=== PATIENT | female | born 1930 | race Caucasian/White ===

== ENCOUNTER 2016-08-26 11:21 | Observation (INO) | payer MEDICARE ==
[2016-08-26 11:29] VITALS: BMI 21.5
--- NOTE | 2016-08-26 12:25 | ED PDOC ---
HPI: General Adult Time Seen by Provider: 08/26/16 11:28 Chief Complaint (Nursing): Weakness/Neurological Deficit Chief Complaint (Provider): left leg pain History Per: Patient History/Exam Limitations: no limitations Additional Complaint(s): 86yo female complaining of left lower leg pain and swelling for 3 days. She goes to physical therapy where she went and was referred here. Dr. Vargas also recommended she comes here. 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 Now it is red and swollen. No anticoagulant use. Her second complaint occurred this morning after she planned to come here. She has numbness in the left hand and numbness in the mouth. No headache, dizziness , weakness, facial droop, speech changes. This is since waking up this morning. No chest pain. PMD: Sam NIHSS Stroke Scale - Date/Time Evaluation Performed Date Performed: 08/26/16 Time Performed: 11:35 When Was NIHSS Performed: Code Stroke - How Severe is the Stroke Level of Consciousness: 0=Alert LOC to Questions: 0=Both comments correct LOC to commands: 0=Obeys both correctly Best Gaze: 0=Normal Visual: 0=No visual loss Facial: 0=Normal Motor Arm - Left: 0=No drift Motor Arm - Right: 0=No drift Motor Leg - Left: 0=No drift Motor Leg - Right: 0=No drift Limb Ataxia: 0=Absent Sensory: 0=Normal Best Language: 0=No aphasia Dysarthia: 0=Normal articulation Extinction & Inattention (Neglect): 0=Normal, no object Score: 0 rTPA Inclusion/Exclusion - Refusal of Treatment Patient Refused Treatment: No - Inclusion Criteria for Altepase Patient is 18 years or Older: Yes The Clinical Diagnosis of Ischemic Stroke That is Causing a Potentially Disabling Neurological Deficit: No Time of Onset is Well Established to be Less Than 270 Minute Before Treatment Would Begin: No Risk/Benefit Discussed With Patient/Family Member Present: No - Warning to TPA With Conditions Condition: Stroke Serevity Too Mild (NIH Score = 0), Care Team Unable to Determine Eligibilty (outside of window) Additional Condition (For 3-4.5 Hour Window): Age Greater Than 80 Past Medical History Reviewed: Historical Data, Nursing Documentation, Vital Signs Vital Signs: Last Vital Signs Temp 97.4 F L 08/27/16 04:48 Pulse 70 08/27/16 04:48 Resp 20 08/27/16 04:48 BP 122/65 08/27/16 04:48 Pulse Ox 97 08/27/16 07:22 - Medical History PMH: Anemia (B12 deficiency), CVA, Diabetes, Deep Vein Thrombosis, Fractures (R hip), HTN, Seizures, TIA (x28) Denies: HIV, Chronic Kidney Disease Other PMH: diabetic neuropathy in legs - Surgical History Surgical History: No Surg Hx - Family History Family History: States: Hypertension - Immunization History Hx Influenza Vaccination: No Hx Pneumococcal Vaccination: No - Home Medications Home Medications: Ambulatory Orders Medication Instructions Recorded Aspirin [Aspirin EC] 325 mg PO DAILY 08/26/16 Cholecalciferol [Vitamin D 1000 IU] 1,000 unit PO DAILY 08/26/16 Furosemide [Lasix] 40 mg PO MWF 08/26/16 Glucosamine/MSM/Chondroitin A 2 cap PO DAILY 08/26/16 [Glucosamine Chondroit MSM Tab] Lactobacillus Combination No.8 1 cap PO DAILY 08/26/16 [Adult Probiotic] Losartan [Cozaar] 25 mg PO DAILY 08/26/16 Timolol 0.5% Ophth [Timoptic 0.5% 1 drop EACHEYE QAM 08/26/16 Ophth Soln] - Allergies Allergies/Adverse Reactions: Allergies Allergy/AdvReac Type Severity Reaction Status Date / Time amlodipine besylate Allergy SWELLING Verified 08/26/16 11:35 [From Norvasc] ciprofloxacin [From Cipro] Allergy RASH Verified 08/26/16 11:35 ciprofloxacin HCl Allergy RASH Verified 08/26/16 11:35 [From Cipro] codeine Allergy RASH Verified 08/26/16 11:35 lisinopril Allergy RASH Verified 08/26/16 11:35 metoprolol tartrate Allergy SWELLING Verified 08/26/16 11:35 [From Lopressor] metronidazole [From Flagyl] Allergy RASH Verified 08/26/16 11:35 Penicillins Allergy RASH Verified 08/26/16 11:35 tetanus toxoid, adsorbed Allergy RASH Verified 08/26/16 11:35 Review of Systems ROS Statement: Except As Marked, All Systems Reviewed And Found Negative Cardiovascular: Negative for: Chest Pain Musculoskeletal: Positive for: Leg Pain Neurological: Negative for: Weakness, Change in Speech, Headache, Dizziness, Other (facial droop) Physical Exam - Reviewed Nursing Documentation Reviewed: Yes Vital Signs Reviewed: Yes - Physical Exam Appears: Positive for: Well, Non-toxic, No Acute Distress Head Exam: Positive for: ATRAUMATIC, NORMAL INSPECTION, NORMOCEPHALIC Skin: Positive for: Warm, Dry Eye Exam: Positive for: EOMI, PERRL Cardiovascular/Chest: Positive for: Regular Rate, Rhythm Respiratory: Positive for: Normal Breath Sounds. Negative for: Rales, Rhonchi, Wheezing Gastrointestinal/Abdominal: Positive for: Soft. Negative for: Tenderness Extremity: Positive for: Other (Mild edema bilaterally more on left than right, also with erythema to anterior murguia on left. mild calf tenderness on left. ) Neurologic/Psych: Positive for: Alert, Oriented (x3). Negative for: Motor/ Sensory Deficits - Laboratory Results Result Diagrams: 08/27/16 04:30 08/27/16 04:30 - ECG O2 Sat by Pulse Oximetry: 97 (RA) Pulse Ox Interpretation: Normal Medical Decision Making Medical Decision Makin tPA exclusion due to extended onset of symptoms and no deficits noted during exam. Impression: leg pain; numbness Differential includes DVT, TIA, CVA Plan: CT Head w/o EKG Labs US Left lower extremity reassess 1435 US Left lower extremity No evidence of DVT seen in visualized veins of left lower extremity CT Head w/o Impression: moderate nonspecific white matter changes. generalized atrophy [address] Mills covering for Dr. Harper who recommends admission for TIA workup with MRI. Disposition - Clinical Impression Clinical Impression: Numbness and tingling in left hand, Left leg pain - Patient ED Disposition Is Patient to be Admitted: Yes Discussed With : Jamie Riojas Doctor Will See Patient In The: ED Counseled Patient/Family Regarding: Studies Performed, Diagnosis - Disposition Disposition Time: 15:40 Condition: FAIR - Pt Status Changed To: Hospital Disposition Of: Observation - POA Present On Arrival: None Additional Comments - Additional Comments Additional Comments: Scribe Attestation: Documented by Faheem Gao acting as a scribe for Marsha Jack MD. Provider Scribe Attestation: All medical record entries made by the Scribe were at my direction and personally dictated by me. I have reviewed the chart and agree that the record accurately reflects my personal performance of the history, physical exam, medical decision making, and the department course for this patient. I have also personally directed, reviewed, and agree with the discharge instructions and disposition.
--- NOTE | 2016-08-26 12:37 | CT ---
PROCEDURE: CT HEAD WITHOUT CONTRAST. HISTORY: left hand numbness COMPARISON: Noncontrast head CT performed 11/29/15 TECHNIQUE: Axial computed tomography images were obtained through the head/brain without intravenous contrast. Radiation dose: Total exam DLP = 758.43 mGy-cm. This CT exam was performed using one or more of the following dose reduction techniques: Automated exposure control, adjustment of the mA and/or kV according to patient size, and/or use of iterative reconstruction technique. FINDINGS: HEMORRHAGE: No intracranial hemorrhage. BRAIN: Diffuse atrophy with prominence of the ventricles and sulci noted. No mass effect or edema. Intracranial atherosclerotic calcifications. Scattered periventricular and subcortical white matter hypodensities, which are nonspecific, but often seen with chronic microvascular ischemic disease. Please note that MRI with diffusion imaging is more sensitive in the detection of acute ischemic event. VENTRICLES: No hydrocephalus. CALVARIUM: Unremarkable. PARANASAL SINUSES: Unremarkable as visualized. No significant inflammatory changes. MASTOID AIR CELLS: Unremarkable as visualized. No inflammatory changes. OTHER FINDINGS: None. IMPRESSION: Moderate nonspecific white matter changes. Generalized atrophy.
--- NOTE | 2016-08-26 13:36 | US ---
Left lower extremity venous Doppler 08/26/2016. History: Left leg pain and swelling. Duplex interrogation of the deep veins left lower extremity performed. Correlation made with prior bilateral venous Doppler 12/17/2014. Findings: The visualized deep veins of the left lower extremity exhibit normal flow, compressibility augmentation without evidence of DVT. Visualized right common femoral vein is also patent Impression: No evidence of DVT seen within the visualized deep veins left lower extremity.
[2016-08-26 13:38] LABS: BASO # 0.1 K/uL (0.0-0.2); BASO % 1.3 % (0.0-2.0); BLOOD UREA NITROGEN 16 mg/dl (7-17); CARBON DIOXIDE 27 mmol/L (22-30); CHLORIDE 104 mmol/L (98-107); EOS # 0.1 K/uL (0.0-0.7); EOS % 2.1 % (0.0-4.0); GFR AFRICAN-AMERICAN > 60; GLUCOSE,RANDOM 84 mg/dL (65-105); HEMATOCRIT 41.4 % (34.0-47.0); LYMPH # 1.7 K/uL (1.0-4.3); LYMPH % 31.2 % (20.0-40.0); MEAN CELL VOLUME 91.8 fl (81.0-99.0); MEAN CORPUSCULAR HEMOGLOBIN 30.6 pg (27.0-31.0); MEAN CORPUSCULAR HGB CONC 33.3 g/dL (33.0-37.0); MEAN PLATELET VOLUME 8.8 fl (7.2-11.7); MONO # 0.5 K/uL (0.0-0.8); MONO % 9.4 % (0.0-10.0); NEUT # 3.1 K/uL (1.8-7.0); NRBC % 0.1 % (0.0-0.0); POTASSIUM 4.4 MMOL/L (3.6-5.0); RED CELL DISTRIBUTION WIDTH 14.1 % (11.5-14.5); SODIUM 139 mmol/l (132-148); WHITE BLOOD COUNT 5.5 K/uL (4.8-10.8)
--- NOTE | 2016-08-26 17:51 | CP.PCM.HP ---
History of Present Illness - History of Present Illness History of Present Illness: 86 yo female with history of multiple TIA/CVAs, DVT, HTN and Rheumatic Fever was referred here [facility] because of pain and swelling of the left leg since 3 days ago. However upon interview patient also mentioned having numbness of the left side of the face and left upper and lower limbs since this morning. She was sent for venous doppler which turned out negative for DVT. When she came from ultrasound she reported spontaneous relief of the numbness on the left side. Her left leg which she claimed was swollen and hard was now with normal consistency and no longer painful. With her history of frequent TIAs , her PCP, Dr Vargas, advised that she be placed on observation. Present on Admission - Present on Admission Any Indicators Present on Admission: Yes History of DVT/PE: Yes History of Uncontrolled Diabetes: No Urinary Catheter: No Decubitus Ulcer Present: No Review of Systems - Review of Systems All systems: reviewed and no additional remarkable complaints except (aside from those mentioned above, 12 point system review were negative by me) Past Patient History - Past Medical History & Family History Past Medical History?: Yes - Past Social History Smoking Status: Never Smoked Chewing Tobacco Use: No Cigar Use: No Alcohol: < 2 Drinks/Day (drinks a glass of wine with dinner) Home Situation {Lives}: Alone - CARDIAC Hx Cardiac Disorders: Yes Hx Heart Murmur: Yes Hx Hypertension: Yes Other/Comment: history of Rheumatic Fever - PULMONARY Hx Respiratory Disorders: No - NEUROLOGICAL Hx Neurological Disorder: Yes HX Cerebrovascular Accident: Yes Hx Transient Ischemic Attacks (TIA): Yes (28 times) - HEENT Hx HEENT Problems: No - RENAL Hx Chronic Kidney Disease: No - ENDOCRINE/METABOLIC Hx Endocrine Disorders: No Other/Comment: Hypoparathyroid - HEMATOLOGICAL/ONCOLOGICAL Hx Human Immunodeficiency Virus (HIV): No - INTEGUMENTARY Hx Dermatological Problems: No - MUSCULOSKELETAL/RHEUMATOLOGICAL Hx Fractures: Yes (right hip fracture, 1988) - GASTROINTESTINAL Hx Gastrointestinal Disorders: No - GENITOURINARY/GYNECOLOGICAL Hx Genitourinary Disorders: No - PSYCHIATRIC Hx Psychophysiologic Disorder: No Hx Substance Use: No - SURGICAL HISTORY Hx Orthopedic Surgery: Yes (RT HIP REPLACEMENT, 1988) - ANESTHESIA Hx Anesthesia: Yes Hx Anesthesia Reactions: No Hx Malignant Hyperthermia: No Meds Allergies/Adverse Reactions: Allergies Allergy/AdvReac Type Severity Reaction Status Date / Time amlodipine besylate Allergy SWELLING Verified 05/08/17 11:35 [From Norvasc] ciprofloxacin [From Cipro] Allergy RASH Verified 08/26/16 11:35 ciprofloxacin HCl Allergy RASH Verified 08/26/16 11:35 [From Cipro] codeine Allergy RASH Verified 08/26/16 11:35 lisinopril Allergy RASH Verified 08/26/16 11:35 metoprolol tartrate Allergy SWELLING Verified 08/26/16 11:35 [From Lopressor] metronidazole [From Flagyl] Allergy RASH Verified 08/26/16 11:35 Penicillins Allergy RASH Verified 08/26/16 11:35 tetanus toxoid, adsorbed Allergy RASH Verified 08/26/16 11:35 Physical Exam - Constitutional Appears: No Acute Distress - Head Exam Head Exam: ATRAUMATIC - Eye Exam Eye Exam: absent: Scleral icterus - ENT Exam ENT Exam: Mucous Membranes Moist - Neck Exam Neck exam: Negative for: Meningismus - Respiratory Exam Respiratory Exam: absent: Rhonchi, Wheezes, Respiratory Distress - Cardiovascular Exam Cardiovascular Exam: REGULAR RHYTHM, +S1, +S2 - GI/Abdominal Exam GI & Abdominal Exam: Soft. absent: Tenderness - Rectal Exam Rectal Exam: Deferred - Extremities Exam Extremities exam: Positive for: pedal pulses present. Negative for: calf tenderness, pedal edema - Back Exam Back exam: absent: tenderness - Neurological Exam Neurological exam: Alert, Oriented x3 - Psychiatric Exam Psychiatric exam: Normal Affect - Skin Skin Exam: Dry, Intact Results - Vital Signs Recent Vital Signs: Last Vital Signs Temp 98.9 F 08/26/16 16:59 Pulse 71 08/26/16 16:59 Resp 18 08/26/16 16:59 BP 156/69 H 08/26/16 16:59 Pulse Ox 99 08/26/16 16:12 - Labs Result Diagrams: 08/26/16 13:00 08/26/16 13:00 Assessment & Plan (1) TIA (transient ischemic attack) Status: Suspected Comment: place on observation in telemetry. ASA 81mg PO daily. Lipid profile. ECHO. MRI of brain. consult with Dr Harper (2) Hypertension Status: Acute Comment: BP slightly elevated. Lasix 40mg PO MWF. Losartan 25mg PO daily. monitor BP (3) DVT prophylaxis Status: Acute Comment: Lovenox 40mg SC daily
--- NOTE | 2016-08-26 21:39 | MRI ---
EXAM: MR Head Without Intravenous Contrast CLINICAL HISTORY: 86 years old, female; Signs and symptoms; Weakness, extremity; Left; Patient HX: Pat C/O of left lower leg pain, her leg is red and swollen, no anticoagulant use; Additional info: Numbness TECHNIQUE: Magnetic resonance images of the head/brain without intravenous contrast in multiple planes. COMPARISON: CT - HEAD W/O CONTRAST 08/26/2016 12:00:45 PM FINDINGS: Brain: Mild atrophy. No intracranial hemorrhage. No mass. Extensive patchy high T2 signal within periventricular and subcortical white matter. No abnormal restricted diffusion. Ventricles: No hydrocephalus. Bones/joints: No acute fracture. Sinuses: No acute sinusitis. Mastoid air cells: No mastoid effusion. Orbits: Unremarkable as visualized. IMPRESSION: 1. No MRI evidence of acute infarction. 2. Chronic ischemic white matter changes. 3. Incidental/non-acute findings are described above.
--- NOTE | 2016-08-26 21:43 | MRI ---
EXAM: MR Angiography Head Without Intravenous Contrast CLINICAL HISTORY: 86 years old, female; Signs and symptoms; Weakness; Patient HX: Left leg weakness; Additional info: Numbness TECHNIQUE: Magnetic resonance angiography images of the head without intravenous contrast. COMPARISON: CT - HEAD W/O CONTRAST 08/26/2016 12:00:45 PM FINDINGS: Right internal carotid artery: Intracranial segment is patent with no significant stenosis. No aneurysm. Right anterior cerebral artery: Narrowing of A1 segment. No occlusion. No aneurysm. Right middle cerebral artery: No occlusion or significant stenosis. No aneurysm. Right posterior cerebral artery: [employer]. No occlusion or significant stenosis. No aneurysm. Right vertebral artery: Unremarkable as visualized. Left internal carotid artery: Intracranial segment is patent with no significant stenosis. No aneurysm. Left anterior cerebral artery: No occlusion or significant stenosis. No aneurysm. Left middle cerebral artery: No occlusion or significant stenosis. No aneurysm. Left posterior cerebral artery: No occlusion or significant stenosis. No aneurysm. Left vertebral artery: Unremarkable as visualized. Basilar artery: Unremarkable. No occlusion or significant stenosis. No aneurysm. IMPRESSION: Patent vasculature.
[2016-08-27 00:22] VITALS: RESP 20
[2016-08-27 05:10] LABS: BASO # 0.1 K/uL (0.0-0.2); EOS # 0.2 K/uL (0.0-0.7); EOS % 4.5 % (0.0-4.0); HEMATOCRIT 40.6 % (34.0-47.0); LYMPH # 1.5 K/uL (1.0-4.3); LYMPH % 33.4 % (20.0-40.0); MEAN CELL VOLUME 91.6 fl (81.0-99.0); MEAN CORPUSCULAR HEMOGLOBIN 30.1 pg (27.0-31.0); MEAN CORPUSCULAR HGB CONC 32.8 g/dL (33.0-37.0); MEAN PLATELET VOLUME 8.7 fl (7.2-11.7); MONO # 0.5 K/uL (0.0-0.8); MONO % 11.8 % (0.0-10.0); NEUT # 2.2 K/uL (1.8-7.0); NEUT % 48.3 % (50.0-75.0); NRBC % 0.1 % (0.0-0.0); RED CELL DISTRIBUTION WIDTH 13.9 % (11.5-14.5); WHITE BLOOD COUNT 4.5 K/uL (4.8-10.8)
[2016-08-27 05:15] LABS: BLOOD UREA NITROGEN 17 mg/dl (7-17); CALCIUM 9.8 mg/dL (8.4-10.2); CARBON DIOXIDE 28 mmol/L (22-30); CHLORIDE 106 mmol/L (98-107); CHOLESTEROL 189 mg/dL (0-199); GFR AFRICAN-AMERICAN > 60; GLUCOSE,RANDOM 95 mg/dL (65-105); POTASSIUM 4.4 MMOL/L (3.6-5.0); SODIUM 140 mmol/l (132-148)
[2016-08-27 05:46] LABS: THYROID STIMULATING HORMONE 1.54 mIU/ML (0.46-4.68)
[2016-08-27 07:07] LABS: RBC URINE 2 /hpf (0-3); URINE BILIRUBIN NEGATIVE (NEGATIVE); URINE BLOOD MODERATE (NEGATIVE); URINE COLOR YELLOW (YELLOW); URINE GLUCOSE (UA) NEG (Normal); URINE KETONE NEGATIVE (NEGATIVE); URINE LEUKOCYTE ESTERASE NEG Leu/uL (Negative); URINE PROTEIN NEGATIVE (NEGATIVE); URINE UROBILINOGEN 0.2-1.0 mg/dL (0.2-1.0); WBC URINE 2 /hpf (0-5)
[2016-08-27 07:22] VITALS: O2SAT 97
[2016-08-27] MEDS ORDERED: Aspirin 325 mg EC Tablets PO SCH (09:00)
[2016-08-27] MEDS ORDERED: Enoxaparin 40 mg Syringe SC SCH (09:00)
[2016-08-27 10:26] LABS: CHOLESTEROL 215 mg/dL (0-199)
[2016-08-27 10:39] LABS: PARTIAL THROMBOPLASTIN TIME 30.7 SECONDS (23.3-32.5)
--- NOTE | 2016-08-27 11:00 | CARD ---
APPROVED REPORT EKG Measurement Heart [id number] <Conclusion> Normal sinus rhythm with sinus arrhythmia Normal ECG
[2016-08-27 11:55] VITALS: BP 146/87; PULSE 83; TEMP 98
--- NOTE | 2016-08-27 12:08 | CARD ---
APPROVED REPORT EXAM: Two-dimensional and M-mode echocardiogram with Doppler and color Doppler. Other Information Quality : AverageRhythm : NSR INDICATION CVA/TIA 2D DIMENSIONS IVSd1.31 (0.7-1.1cm)LVDd3.87 (3.9-5.9cm) LVOT Diameter2.04 (1.8-2.4cm)PWd1.26 (0.7-1.1cm) IVSs1.32 (0.8-1.2cm)LVDs3.57 (2.5-4.0cm) FS (%) 7.7 %PWs1.12 (0.8-1.2cm) M-Mode DIMENSIONS Left Atrium (MM)4.44 (2.5-4.0cm)IVSd0.97 (0.7-1.1cm) Aortic Root3.31 (2.2-3.7cm)LVDd4.44 (4.0-5.6cm) Aortic Cusp Exc.1.22 (1.5-2.0cm)PWd1.13 (0.7-1.1cm) IVSs1.38 cmFS (%) 35 % LVDs2.91 (2.0-3.8cm)PWs1.25 cm Mitral Valve E/A ratio0.0 TDI E/Lateral E'0.0E/Medial E'0.0 Tricuspid Valve TR Peak [id number] [id number] Peak Gr.16mmHg [id number] LEFT VENTRICLE The left ventricle is normal size. There is normal left ventricular wall thickness. The left ventricular function is normal. The left ventricular ejection fraction is - 60%. There is normal LV segmental wall motion. Transmitral Doppler flow pattern is abnormal. No left ventricle thrombus noted on this study. There is no ventricular septal defect visualized. There is no left ventricular aneurysm. There is no mass noted in the left ventricle. RIGHT VENTRICLE The right ventricle is normal size. There is normal right ventricular wall thickness. The right ventricular systolic function is normal. ATRIA The left atrium is mildly dilated. There is no thrombus suspected in the left atrium. The right atrium is mildly dilated. The interatrial septum is intact with no evidence for an atrial septal defect. AORTIC VALVE The aortic valve is mildly thickened. No aortic regurgitation is present. There is no aortic valvular stenosis. MITRAL VALVE The mitral valve is normal in structure and function. There is no evidence of mitral valve prolapse. There is no mitral valve stenosis. Mitral regurgitation is mild. TRICUSPID VALVE The tricuspid valve is normal in structure and function. There is mild tricuspid regurgitation. Right ventricular systolic pressure is estimated at 24 mmHg. There is no tricuspid valve prolapse or vegetation. There is no tricuspid valve stenosis. PULMONIC VALVE The pulmonic valve is not well visualized. There is no pulmonic valvular regurgitation. GREAT VESSELS The aortic root is normal in size. The IVC is normal in size and collapses >50% with inspiration. PERICARDIAL EFFUSION There is a small anterior echo free space. There is no pleural effusion. <Conclusion> The left ventricle is normal in size and wall thickness. The left ventricular function is normal. The left ventricular ejection fraction is - 60%. The left atrium and right atrium are mildly enlarged. The aortic valve is mildly thickened but not stenotic. The mitral and tricuspid valves are normal. There is mild mitral regurgitation and mild tricuspid regurgitation.
--- NOTE | 2016-08-27 13:32 | CP.PCM.CON ---
History of Present Illness - History of Present Illness History of Present Illness: The patient is an 86-year-old woman with a past medical history of multiple TIA/ CVAs, DVT, HTN and Rheumatic Fever who was initially referred referred here from [facility] because of pain and swelling of the left leg for the last 3 days. The patient subsequently complained of having intermittent numbness of the left hand and arm below the elbow. She describes it as a cold sensation that sometimes also involves regions surrounding her mouth and also affects the right hand at times. After further discussion with the patient, she also complained that her feet feel numb and that she had felt that the numbness affects her ambulation. She has had this for several months and it is intermittent, sometimes is bothersome. She denied headache, visual changes, nausea, vomiting, weakness or other sensory deficits. Review of Systems - Review of Systems All systems: reviewed and no additional remarkable complaints except Past Patient History - Past Medical History & Family History Past Medical History?: Yes - Past Social History Smoking Status: Former Smoker Chewing Tobacco Use: No Alcohol: Occasional - CARDIAC Hx Hypertension: Yes - PULMONARY Hx Respiratory Disorders: No - NEUROLOGICAL Hx Seizures: Yes Hx Transient Ischemic Attacks (TIA): Yes (x28) - HEENT Hx HEENT Problems: No - RENAL Hx Chronic Kidney Disease: No - ENDOCRINE/METABOLIC Hx Endocrine Disorders: No Other/Comment: Hypoparathyroid - HEMATOLOGICAL/ONCOLOGICAL Hx Anemia: Yes (B12 deficiency) Hx Human Immunodeficiency Virus (HIV): No - INTEGUMENTARY Hx Dermatological Problems: No - MUSCULOSKELETAL/RHEUMATOLOGICAL Hx Fractures: Yes (R hip) - GASTROINTESTINAL Hx Gastrointestinal Disorders: No - GENITOURINARY/GYNECOLOGICAL Hx Genitourinary Disorders: No - PSYCHIATRIC Hx Substance Use: No - SURGICAL HISTORY Hx Orthopedic Surgery: Yes (RT HIP REPLACEMENT, 1988) Other/Comment: LEFT BREAST BIOPSY WITH CLIP 12 YEARS AGO - ANESTHESIA Hx Anesthesia: Yes Hx Anesthesia Reactions: No Hx Malignant Hyperthermia: No Meds Allergies/Adverse Reactions: Allergies Allergy/AdvReac Type Severity Reaction Status Date / Time amlodipine besylate Allergy SWELLING Verified 08/26/16 11:35 [From Norvasc] ciprofloxacin [From Cipro] Allergy RASH Verified 08/26/16 11:35 ciprofloxacin HCl Allergy RASH Verified 08/26/16 11:35 [From Cipro] codeine Allergy RASH Verified 08/26/16 11:35 lisinopril Allergy RASH Verified 08/26/16 11:35 metoprolol tartrate Allergy SWELLING Verified 08/26/16 11:35 [From Lopressor] metronidazole [From Flagyl] Allergy RASH Verified 08/26/16 11:35 Penicillins Allergy RASH Verified 08/26/16 11:35 tetanus toxoid, adsorbed Allergy RASH Verified 08/26/16 11:35 - Medications Medications: Current Medications Acetaminophen (Tylenol 325mg Tab) 650 mg PO Q6 PRN PRN Reason: Pain, Mild (1-3) Aspirin (Ecotrin) 325 mg PO DAILY [facility] Last Admin: 08/27/16 08:42 Dose: 325 mg Atorvastatin Calcium (Lipitor) 20 mg PO DAILY [facility] Cholecalciferol (Vitamin D) 1,000 iu PO DAILY [facility] Last Admin: 08/27/16 08:45 Dose: 1,000 iu Docusate Sodium (Colace) 100 mg PO BID PRN PRN Reason: Constipation Last Admin: 08/27/16 08:41 Dose: 100 mg Enoxaparin Sodium (Lovenox) 40 mg SC DAILY [facility] PRN Reason: Protocol Last Admin: 08/27/16 08:43 Dose: 40 mg Famotidine (Pepcid) 20 mg PO BID [facility] Last Admin: 08/27/16 08:43 Dose: 20 mg Furosemide (Lasix) 40 mg PO MWF [facility] Losartan Potassium (Cozaar) 25 mg PO DAILY [facility] Last Admin: 08/27/16 08:41 Dose: 25 mg Timolol Maleate (Timoptic 0.5% Oph Soln) 1 drop OU QAM [facility] Last Admin: 08/27/16 08:44 Dose: 1 drop Physical Exam - Constitutional Appears: Well - Head Exam Head Exam: ATRAUMATIC, NORMAL INSPECTION, NORMOCEPHALIC - Eye Exam Eye Exam: EOMI, Normal appearance, PERRL - ENT Exam ENT Exam: Mucous Membranes Moist, Normal Exam - Neck Exam Neck exam: Positive for: Normal Inspection - Respiratory Exam Respiratory Exam: Clear to Auscultation Bilateral, NORMAL BREATHING PATTERN - Cardiovascular Exam Cardiovascular Exam: REGULAR RHYTHM, +S1, +S2 - GI/Abdominal Exam GI & Abdominal Exam: Normal Bowel Sounds, Soft. absent: Tenderness - Neurological Exam Neurological exam: Alert, CN II-XII Intact, Normal Gait, Oriented x3, Reflexes Normal - Expanded Neurological Exam Expanded Patient oriented to: person, place, time Cranial nerves: EOM's Intact: Normal, Facial Sensation: Normal, Gag Reflex: Normal, Nystagmus: Normal Ataxia: No Cerebellar Function: Finger to Nose: Normal, Heel to Covarrubias: Normal, Romberg: Normal Upper motor neuron: Babinski Sign: Normal, Zheng Neglect: Normal, Pronator Drift : Normal, Sensory Extinction: Normal Sensory exam: Lower Extremity 2 Point Discrimination: Normal, Lower Extremity Light Touch: Normal, Lower Extremity Pin Prick: Normal, Lower Extremity Temperature: Normal, Upper Extremity 2 Point Discrimination: Normal, Upper Extremity Light Touch: Normal, Upper Extremity Pin Prick: Normal, Upper Extremity Temperature: Normal Neuro motor strength exam: Left Upper Extremity: 5, Right Upper Extremity: 5, Left Lower Extremity: 5, Right Lower Extremity: 5 DTR: Achilles Tendon Left: 2+, Achilles Tendon Right: 2+, Bicep Left: 2+, Bicep Right: 2+, Brachioradialis Left: 2+, Brachioradialis Right: 2+, Patellar Left: 2 +, Patellar Right: 2+, Tricep Left: 2+, Tricep Right: 2+ - Psychiatric Exam Psychiatric exam: Normal Affect, Normal Mood - Skin Skin Exam: Dry, Intact, Normal Color, Warm Results - Vital Signs Recent Vital Signs: Last Vital Signs Temp 98 F 08/27/16 09:00 Pulse 83 08/27/16 09:00 Resp 20 08/27/16 09:00 BP 146/87 08/27/16 09:00 Pulse Ox 97 08/27/16 07:23 - Labs Result Diagrams: 08/27/16 04:30 08/27/16 04:30 Labs: Laboratory Results - last 24 hr 08/27/16 08/27/16 08/27/16 04:30 04:30 06:49 WBC 4.5 L RBC 4.43 Hgb 13.3 Hct 40.6 MCV 91.6 MCH 30.1 MCHC 32.8 L RDW 13.9 Plt Count 231 MPV 8.7 Neut % (Auto) 48.3 L Lymph % (Auto) 33.4 [place] % (Auto) 11.8 H Eos % (Auto) 4.5 H Baso % (Auto) 2.0 Neut # 2.2 Lymph # 1.5 [place] # 0.5 Eos # 0.2 Baso # 0.1 PT INR APTT Sodium 140 Potassium 4.4 Chloride 106 Carbon Dioxide 28 Anion Gap 11 BUN 17 Creatinine 0.7 Est GFR ( Amer) > 60 Est GFR (Non-Af Amer) > 60 Random Glucose 95 Calcium 9.8 Triglycerides 143 Cholesterol 189 LDL Cholesterol Direct 109 HDL Cholesterol 45 Vitamin B12 TSH 3rd Generation 1.54 Urine Color Yellow Urine Clarity Clear Urine pH 5.0 Ur Specific [place] 1.015 Urine Protein Negative Urine Glucose (UA) Neg Urine Ketones Negative Urine Blood Moderate Urine Nitrate Negative Urine Bilirubin Negative Urine Urobilinogen 0.2-1.0 Ur Leukocyte Esterase Neg Urine RBC (Auto) 2 Urine Microscopic WBC 2 Ur Squamous Epith Cells 1 08/27/16 08/27/16 08:50 09:55 WBC RBC Hgb Hct MCV MCH MCHC RDW Plt Count MPV Neut % (Auto) Lymph % (Auto) [place] % (Auto) Eos % (Auto) Baso % (Auto) Neut # Lymph # [place] # Eos # Baso # PT 10.8 INR 1.04 APTT 30.7 Sodium Potassium Chloride Carbon Dioxide Anion Gap BUN Creatinine Est GFR ( Amer) Est GFR (Non-Af Amer) Random Glucose Calcium Triglycerides 150 H Cholesterol 215 H LDL Cholesterol Direct 122 HDL Cholesterol 53 Vitamin B12 > 1000 H TSH 3rd Generation Urine Color Urine Clarity Urine pH Ur Specific [place] Urine Protein Urine Glucose (UA) Urine Ketones Urine Blood Urine Nitrate Urine Bilirubin Urine Urobilinogen Ur Leukocyte Esterase Urine RBC (Auto) Urine Microscopic WBC Ur Squamous Epith Cells - Imaging and Cardiology MRI - head Status: Image reviewed by me, Report reviewed by me (Multiple prior lacunar infarcts and significant white matter disease involving the periventricular region and further out into the cortical and subcortical layers.) Assessment & Plan (1) TIA (transient ischemic attack) Assessment and Plan: Based on the history, exam findings and imaging, the patient likely has had transient ischemic attacks. She likely also has neuropathy. Since these symptoms occurred while she was on aspirin, I recommend switching to Aggrenox BID. Obtian an echocardiogram with bubble study to rule out cardioembolic sources. PT/OT as needed. Follow-up with outpatient neurology. Status: Acute Priority: High
--- NOTE | 2016-08-27 14:15 | CP.PCM.DIS ---
Provider - Provider Date of Admission: 08/26/16 15:43 Attending physician: Jamie Riojas MD Primary care physician: Dr Vargas Consults: Neurology : Dr Johny Mills Time Spent in preparation of Discharge (in minutes): 35 Diagnosis - Discharge Diagnosis (1) TIA (transient ischemic attack) Status: Acute Priority: High (2) Hypertension Status: Chronic (3) Primary osteoarthritis Status: Chronic (4) DVT prophylaxis Status: Acute Hospital Course - Lab Results Lab Results: Most Recent Lab Values WBC 4.5 K/uL (4.8-10.8) L 08/27/16 04:30 RBC 4.43 Mil/uL (3.80-5.20) 08/27/16 04:30 Hgb 13.3 g/dL (12.0-16.0) 08/27/16 04:30 Hct 40.6 % (34.0-47.0) 08/27/16 04:30 MCV 91.6 fl (81.0-99.0) 08/27/16 04:30 MCH 30.1 pg (27.0-31.0) 08/27/16 04:30 MCHC 32.8 g/dL (33.0-37.0) L 08/27/16 04:30 RDW 13.9 % (11.5-14.5) 08/27/16 04:30 Plt Count 231 K/uL (130-400) 08/27/16 04:30 MPV 8.7 fl (7.2-11.7) 08/27/16 04:30 Neut % (Auto) 48.3 % (50.0-75.0) L 08/27/16 04:30 Lymph % (Auto) 33.4 % (20.0-40.0) 08/27/16 04:30 [place] % (Auto) 11.8 % (0.0-10.0) H 08/27/16 04:30 Eos % (Auto) 4.5 % (0.0-4.0) H 08/27/16 04:30 Baso % (Auto) 2.0 % (0.0-2.0) 08/27/16 04:30 Neut # 2.2 K/uL (1.8-7.0) 08/27/16 04:30 Lymph # 1.5 K/uL (1.0-4.3) 08/27/16 04:30 [place] # 0.5 K/uL (0.0-0.8) 08/27/16 04:30 Eos # 0.2 K/uL (0.0-0.7) 08/27/16 04:30 Baso # 0.1 K/uL (0.0-0.2) 08/27/16 04:30 PT 10.8 SECONDS (9.6-11.2) 08/27/16 09:55 INR 1.04 (0.92-1.08) 08/27/16 09:55 APTT 30.7 SECONDS (23.3-32.5) 08/27/16 09:55 Sodium 140 mmol/l (132-148) 08/27/16 04:30 Potassium 4.4 MMOL/L (3.6-5.0) 08/27/16 04:30 Chloride 106 mmol/L (98-107) 08/27/16 04:30 Carbon Dioxide 28 mmol/L (22-30) 08/27/16 04:30 Anion Gap 11 (10-20) 08/27/16 04:30 BUN 17 mg/dl (7-17) 08/27/16 04:30 Creatinine 0.7 mg/dL (0.7-1.2) 08/27/16 04:30 Est GFR ( Amer) > 60 08/27/16 04:30 Est GFR (Non-Af Amer) > 60 08/27/16 04:30 Random Glucose 95 mg/dL (65-105) 08/27/16 04:30 Calcium 9.8 mg/dL (8.4-10.2) 08/27/16 04:30 Troponin I < 0.0120 ng/mL (0.00-0.120) 08/26/16 13:00 Triglycerides 150 mg/DL (0-149) H 08/27/16 08:50 Cholesterol 215 mg/dL (0-199) H 08/27/16 08:50 LDL Cholesterol Direct 122 mg/dL (0-129) 08/27/16 08:50 HDL Cholesterol 53 MG/DL (30-70) 08/27/16 08:50 Vitamin B12 > 1000 pg/mL (239-931) H 08/27/16 08:50 TSH 3rd Generation 1.54 mIU/ML (0.46-4.68) 08/27/16 04:30 Urine Color Yellow (YELLOW) 08/27/16 06:49 Urine Clarity Clear (Clear) 08/27/16 06:49 Urine pH 5.0 (5.0-8.0) 08/27/16 06:49 Ur Specific [place] 1.015 (1.003-1.030) 08/27/16 06:49 Urine Protein Negative mg/dL (NEGATIVE) 08/27/16 06:49 Urine Glucose (UA) Neg mg/dL (Normal) 08/27/16 06:49 Urine Ketones Negative mg/dL (NEGATIVE) 08/27/16 06:49 Urine Blood Moderate (NEGATIVE) 08/27/16 06:49 Urine Nitrate Negative (NEGATIVE) 08/27/16 06:49 Urine Bilirubin Negative (NEGATIVE) 08/27/16 06:49 Urine Urobilinogen 0.2-1.0 mg/dL (0.2-1.0) 08/27/16 06:49 Ur Leukocyte Esterase Neg [place]/uL (Negative) 08/27/16 06:49 Urine RBC (Auto) 2 /hpf (0-3) 08/27/16 06:49 Urine Microscopic WBC 2 /hpf (0-5) 08/27/16 06:49 Ur Squamous Epith Cells 1 /hpf (0-5) 08/27/16 06:49 - Hospital Course Hospital Course: 86 y/o lady with hx of HTN, previous TIA, DVT, came in bec of left sided numbness and also complains of left leg pain. CT of head, MRI of brain, MRA of head : negative. ECHO : normal EF, no thrombus. Doppler US of the LE was negative for DVT. Neurology was consulted - rec to start Aggrenox . (1) TIA (transient ischemic attack) Status: Acute Priority: High Pt came in with left sided numbness CT of head : neg MRI of brain : negative for CVA MRA of head : neg ECHO : no thrombus, normal EF Neurology was consulted- rec to start Aggrenox started on Statin PT/OT consulted- cont outpt PT Pt's sxs resolved (2) Hypertension controlled Status: Chronic cont Lasix and Losartan (3) Primary osteoarthritis Status: Chronic Pt complains of left leg pain stephane on knee - chronic pain accdg to pt- likely OA ff up with Dr Bocanegra- pt's own Ortho Doppler US of LE was negative (4) DVT prophylaxis Status: Acute Lovenox Discharge Exam - Head Exam Head Exam: ATRAUMATIC, NORMAL INSPECTION, NORMOCEPHALIC - Eye Exam Eye Exam: EOMI, Normal appearance Pupil Exam: NORMAL ACCOMODATION - ENT Exam ENT Exam: Mucous Membranes Moist, Normal External Ear Exam - Neck Exam Neck exam: Full Rom - Respiratory Exam Respiratory Exam: NORMAL BREATHING PATTERN. absent: Respiratory Distress - Cardiovascular Exam Cardiovascular Exam: REGULAR RHYTHM, +S1, +S2 - GI/Abdominal Exam GI & Abdominal Exam: Normal Bowel Sounds, Soft. absent: Tenderness - Extremities Exam Extremities exam: normal capillary refill, pedal pulses present - Back Exam Back exam: FULL ROM. absent: CVA tenderness (L), CVA tenderness (R) - Neurological Exam Neurological exam: Alert, CN II-XII Intact, Oriented x3, Reflexes Normal - Psychiatric Exam Psychiatric exam: Normal Affect, Normal Mood - Skin Skin Exam: Dry, Normal Color, Warm Discharge Plan - Discharge Medications Prescriptions: Aspirin/Dipyridamole [Aggrenox 25-200 mg] 1 ea PO BID #60 cap Atorvastatin [Lipitor] 20 mg PO DAILY #30 tab Famotidine [Pepcid] 20 mg PO DAILY #30 tab - Follow Up Plan Condition: GOOD Disposition: HOME/ ROUTINE Additional Instructions: cont Outpt PT at [facility] ff up with Dr Vargas in 1 wk ff up with Dr Harper in 2 wks ff up with Dr Bocanegra for knee pain Referrals: Samuel Vargas MD [Family Provider] - Lewis Harper MD [Staff Provider] - Clinical Quality Measures - CQM - Stroke Antithrombotic Prescribed: Yes Anticoagulation Prescribed for Atrial Flutter, Atrial Fibrillation and History of:: Not Applicable Statin prescribed: Yes
[2016-08-27] MEDS ORDERED: Aspirin-Dipyridamole 200-25 mg ER Cap PO SCH (17:00)
== END 2016-08-27 16:30 | disposition home or self-care (01) ==
LOC: H.ER 11:21 → H.ERHOLD 15:43 → H.TEL 17:32
DX: G45.9 Transient cerebral ischemic attack, unspecified (principal); M79.605 Pain in left leg; R20.0 Anesthesia of skin; Z86.718 Personal history of other venous thrombosis and embolism; I10 Essential (primary) hypertension; M19.91 Primary osteoarthritis, unspecified site; Z87.891 Personal history of nicotine dependence; E20.9 Hypoparathyroidism, unspecified; Z96.641 Presence of right artificial hip joint; E11.40 Type 2 diabetes mellitus with diabetic neuropathy, unspecified
CPT/HCPCS: 36415; 70450; 70544; 70551; 80048; 80061; 81003; 82607; 82746; 84443; 84484; 85025; 85610; 85730; 93005; 93306; 93971; 99285; G0378; J1650

== ENCOUNTER 2016-10-14 11:47 | Observation (INO) | payer MEDICARE ==
[2016-10-14 13:21] LABS: BASO # 0.1 K/uL (0.0-0.2); EOS # 0.1 K/uL (0.0-0.7); HEMATOCRIT 41.4 % (34.0-47.0); LYMPH # 1.4 K/uL (1.0-4.3); MEAN CELL VOLUME 90.3 fl (81.0-99.0); MEAN CORPUSCULAR HEMOGLOBIN 29.6 pg (27.0-31.0); MEAN CORPUSCULAR HGB CONC 32.7 g/dL (33.0-37.0); MEAN PLATELET VOLUME 9.1 fl (7.2-11.7); MONO # 0.6 K/uL (0.0-0.8); NEUT # 5.8 K/uL (1.8-7.0)
[2016-10-14 13:30] LABS: ALB/GLOB RATIO 1.3 (1.0-2.1); ALKALINE PHOSPHATASE 54 U/L (38-126); ALT/SGPT 31 U/L (9-52); AST/SGOT 20 U/L (14-36); BILIRUBIN,TOTAL 0.4 mg/dl (0.2-1.3); BLOOD UREA NITROGEN 13 mg/dl (7-17); CALCIUM 9.8 mg/dL (8.4-10.2); CARBON DIOXIDE 25 mmol/L (22-30); CHLORIDE 106 mmol/L (98-107); GFR AFRICAN-AMERICAN > 60; GLUCOSE,RANDOM 83 mg/dL (65-105); POTASSIUM 4.6 MMOL/L (3.6-5.0); SODIUM 139 mmol/l (132-148); TOTAL PROTEIN 7.1 G/DL (6.3-8.2)
--- NOTE | 2016-10-14 14:26 | CT ---
PROCEDURE: CT HEAD WITHOUT CONTRAST. HISTORY: dizziness COMPARISON: Noncontrast head CT performed 08/26/16, MRI of the brain without contrast performed 08/26/16 TECHNIQUE: Axial computed tomography images were obtained through the head/brain without intravenous contrast. Radiation dose: Total exam DLP = 1707.79 mGy-cm. This CT exam was performed using one or more of the following dose reduction techniques: Automated exposure control, adjustment of the mA and/or kV according to patient size, and/or use of iterative reconstruction technique. FINDINGS: HEMORRHAGE: No intracranial hemorrhage. BRAIN: Diffuse atrophy with prominence of the ventricles and sulci noted. No mass effect or edema. Intracranial vascular calcifications. Moderate scattered periventricular and subcortical white matter hypodensities, which are nonspecific, but often seen with chronic microvascular ischemic disease. Please note that MRI with diffusion imaging is more sensitive in the detection of acute ischemic event. VENTRICLES: No hydrocephalus. CALVARIUM: Unremarkable. PARANASAL SINUSES: Unremarkable as visualized. No significant inflammatory changes. MASTOID AIR CELLS: Unremarkable as visualized. No inflammatory changes. OTHER FINDINGS: None. IMPRESSION: Moderate nonspecific white matter changes as above. Generalized atrophy.
--- NOTE | 2016-10-14 14:59 | ED PDOC ---
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 Patient reports episode began at 06:30 this morning when she felt a near syncopal episode, but not losing any consciousness. She states the episode lasted for a few seconds and has not been feeling better since, prompting her to seek medical evaluation. Patient notes associated symptoms a headache that she describes as "unusual", tingling sensations in her left arm and numbness around her mouth. However, she denies any chest pain. Patient additionally states she has had similar episodes occur in the past, in which she was diagnosed with TIAs and would take Aspirin if it occurred in her home. Patient is also presenting with left hip pain that worsens with movement. She denies any fall, injuries, or trauma. PMD- Sam <Fadumo Jack A - Last Filed: 10/15/16 14:27> Time Seen by Provider: 10/14/16 14:28 Chief Complaint (Nursing): Abdominal Pain Past Medical History Vital Signs: Last Vital Signs Temp 98.3 F 10/14/16 11:50 Pulse 77 10/14/16 16:37 Resp 20 10/14/16 16:37 BP 138/85 10/14/16 16:37 Pulse Ox 97 10/14/16 18:39 <Yancy Crook Y - Last Filed: 10/14/16 22:14> Reviewed: Historical Data, Nursing Documentation, Vital Signs Vital Signs: Last Vital Signs Temp 98.3 F 10/14/16 11:50 Pulse 77 10/14/16 11:50 Resp 20 10/14/16 11:50 BP 141/82 10/14/16 11:50 Pulse Ox 97 10/14/16 11:50 - Medical History PMH: Anemia (B12 deficiency), CVA, Diabetes, Deep Vein Thrombosis, Fractures (R hip), HTN, Seizures, TIA (x28) Denies: HIV, Chronic Kidney Disease - Surgical History Other surgeries: right hip surgery - Family History Family History: States: Hypertension - Social History Current smoker - smoking cessation education provided: No Alcohol: None Drugs: Denies - Immunization History Hx Influenza Vaccination: No Hx Pneumococcal Vaccination: No <Fadumo Jack - Last Filed: 10/15/16 14:27> - Home Medications Home Medications: Ambulatory Orders Medication Instructions Recorded Cholecalciferol [Vitamin D 1000 IU] 1,000 unit PO DAILY 08/26/16 Furosemide [Lasix] 40 mg PO WESA 08/26/16 Glucosamine/MSM/Chondroitin A 2 cap PO DAILY 08/26/16 [Glucosamine Chondroit MSM Tab] Lactobacillus Combination No.8 1 cap PO DAILY 08/26/16 [Adult Probiotic] Losartan [Cozaar] 25 mg PO DAILY 08/26/16 Timolol 0.5% Ophth [Timoptic 0.5% 1 drop EACHEYE QAM 08/26/16 Ophth Soln] Famotidine [Pepcid] 20 mg PO DAILY #30 tab 08/27/16 Aspirin [Aspirin EC] 325 mg PO DAILY 10/14/16 Cyanocobalamin (Vitamin B-12) 1 drop SL DAILY 10/14/16 [B-12] Atorvastatin [Lipitor] 10 mg PO DAILY #30 tab 10/15/16 - Allergies Allergies/Adverse Reactions: Allergies Allergy/AdvReac Type Severity Reaction Status Date / Time amlodipine besylate Allergy SWELLING Verified 08/26/16 11:35 [From Norvasc] ciprofloxacin [From Cipro] Allergy RASH Verified 08/26/16 11:35 ciprofloxacin HCl Allergy RASH Verified 08/26/16 11:35 [From Cipro] codeine Allergy RASH Verified 08/26/16 11:35 lisinopril Allergy RASH Verified 08/26/16 11:35 metoprolol tartrate Allergy SWELLING Verified 08/26/16 11:35 [From Lopressor] metronidazole [From Flagyl] Allergy RASH Verified 08/26/16 11:35 Penicillins Allergy RASH Verified 08/26/16 11:35 tetanus toxoid, adsorbed Allergy RASH Verified 08/26/16 11:35 Review of Systems ROS Statement: Except As Marked, All Systems Reviewed And Found Negative Cardiovascular: Negative for: Chest Pain Neurological: Positive for: Numbness, Headache, Dizziness, Other ((+) tingling sensation ) <Orbelyan,Gerasim A - Last Filed: 10/15/16 14:27> Physical Exam - Reviewed Nursing Documentation Reviewed: Yes Vital Signs Reviewed: Yes - Physical Exam Appears: Positive for: Non-toxic, No Acute Distress. Negative for: Uncomfortable (appears comfortable ) Head Exam: Positive for: ATRAUMATIC, NORMOCEPHALIC Skin: Positive for: Normal Color. Negative for: Rash Eye Exam: Positive for: Normal appearance, EOMI, PERRL Neck: Positive for: Normal, Painless ROM, Supple Cardiovascular/Chest: Positive for: Regular Rate, Rhythm. Negative for: Murmur Respiratory: Positive for: Normal Breath Sounds. Negative for: Wheezing, Respiratory Distress Gastrointestinal/Abdominal: Positive for: Normal Exam, Soft. Negative for: Tenderness Back: Positive for: Normal Inspection. Negative for: L CVA Tenderness, R CVA Tenderness, Vertebral Tenderness Extremity: Positive for: Tenderness ((+) left hip ). Negative for: Deformity, Swelling Neurologic/Psych: Positive for: Alert, Oriented. Negative for: Motor/Sensory Deficits <Fadumo Jack A - Last Filed: 10/15/16 14:27> - Laboratory Results Result Diagrams: 10/14/16 13:12 10/14/16 13:12 <Yancy Crook Y - Last Filed: 10/14/16 22:14> - Laboratory Results Result Diagrams: 10/14/16 13:12 10/14/16 13:12 - ECG ECG Rhythm: Positive for: Normal QRS, Sinus Rhythm (@66), Premature Ventricular Contraction. Negative for: ST/T Changes (no ST/T changes ) O2 Sat by Pulse Oximetry: 97 - Progress Re-evaluation Time: 18:36 Condition: Re-examined, Improved <Fadumo Jack A - Last Filed: 10/15/16 14:27> Medical Decision Making Medical Decision Makin:28 Initial Impression- Dizziness, near syncopal episode, paresthesia; Differential dx includes but not limited to TIA vs. Cardiac Arrhythmia vs. ACS; Hip Sprain vs. Hip Fracture Initial Plan- * XR Left Hip * EKG * CT Head * CMP * Troponin * Urine dip * CBC w/ differential CT HEAD FINDINGS HEMORRHAGE: No intracranial hemorrhage. BRAIN: Diffuse atrophy with prominence of the ventricles and sulci noted. No mass effect or edema. Intracranial vascular calcifications. Moderate scattered periventricular and subcortical white matter hypodensities, which are nonspecific, but often seen with chronic microvascular ischemic disease. Please note that MRI with diffusion imaging is more sensitive in the detection of acute ischemic event. VENTRICLES: No hydrocephalus. CALVARIUM: Unremarkable. PARANASAL SINUSES: Unremarkable as visualized. No significant inflammatory changes. MASTOID AIR CELLS: Unremarkable as visualized. No inflammatory changes. OTHER FINDINGS: None. IMPRESSION: Moderate nonspecific white matter changes as above. Generalized atrophy. 16:[address] Vargas, pt's PMD, who recommended consulting the case with Dr. Harper, neurologist commercial or institutional cleaner. Per Dr Harper pt is stable for discharge. Based on both of their recommendations, pt will be discharged routinely given the negative findings in her workup as well as a normal physical examination. Pt was advised to visit Dr. Vargas in his office sometime this week. I discussed the plan with the patient who understands and agree with the plan Documented by Fatmata Benavides, acting as a scribe for Fadumo Jack MD. All medical record entries made by the Scribe were at my direction and personally dictated by me. I have reviewed the chart and agree that the record accurately reflects my personal performance of the history, physical exam, medical decision making, and the department course for this patient. I have also personally directed, reviewed, and agree with the discharge instructions and disposition. <Fadumo Jack A - Last Filed: 10/15/16 14:27> Disposition <Yancy Crook Y - Last Filed: 10/14/16 22:14> - Patient ED Disposition Is Patient to be Admitted: No Doctor Will See Patient In The: Office Counseled Patient/Family Regarding: Studies Performed, Diagnosis, Need For Followup - Disposition Disposition: Routine/Home Disposition Time: 18:38 <Fadumo Jack - Last Filed: 10/15/16 14:27> - Clinical Impression Clinical Impression: Facial paresthesia, Hip pain - Disposition Condition: GOOD Addendum Addendum: 10/14/16 22:14 Went to evaluate pt because family at bedside was concerned with her elevated blood pressure. Family arrived and said pt was having pre-syncope sx for the past few days. Currently, they are requesting admission given the pt's hx of TIA they are concerned about her. Pt PMD is Dr. Vargas. Pt will be admitted under Dr. Jasso, hospitalist. <Yancy Crook Y - Last Filed: 10/14/16 22:14>
--- NOTE | 2016-10-14 16:16 | RAD ---
Indication: Hip pain, left trauma ? Left hip with pelvis Comparison: Pelvis radiograph performed 03/24/14 Findings: Diffuse osseous demineralization limits evaluation for acute fracture lines. Right hip arthroplasty. Moderate joint space narrowing of the left hip. No acute displaced fracture or dislocation identified. Sacroiliac joints appear intact. Mild constipation. Soft tissues appear unremarkable. Severe degenerative changes of the included portions lower lumbar spine. Impression: Diffuse osseous demineralization. Degenerative changes as above. No acute displaced fracture or dislocation evident. If high clinical index of suspicion, suggest cross-sectional imaging for further evaluation. Otherwise, if symptoms persist or if there is continued clinical concern, x-ray follow-up in 7-10 days should be considered.
--- NOTE | 2016-10-14 19:24 | CARD ---
APPROVED REPORT EKG Measurement Heart [id number] <Conclusion> Sinus rhythm with frequent premature ventricular complexes Otherwise normal ECG
--- NOTE | 2016-10-14 23:36 | CP.PCM.HP ---
History of Present Illness - History of Present Illness History of Present Illness: PCP: Dr Vargas Chief complaint: Dizziness/Headache HPI: 86 years old female with hx of HTN, DVT, multiple TIAs and CVA , comes to the Ed with seven hours of dizziness and nearing to LOC . This was associated with parieto-occipital headache, nausea, perioral paresthesias, and tingling sensation to the to the left arm and not feeling well in general. She took Aspirin but without much relief. She referred Diarrhea for 2-3 days left hip pain which increases on movement and had a TIA episode 3 days ago. She stayed at home and the symptoms ceased. In ED The Patient's SBP increased 200. PMH: Anemia (B12 deficiency), CVA, Diabetes, DVT left leg, Refuses Anticoagulant only using ASA;; Fractures (R hip), HTN, Seizures, TIA (x28); Leukemia with Chemo in 1959; Left shoulder pain; Neuropathy; B12 deficiency; PSH: Right THR; Biopsy left breast SH: Former Smoker; No Alcohol; No illegal drug use; Live alone FH: Mother with CVA Father with Brain Ca Son with prostate CA Allergies: Amlodipine, Cipro; Codeine; Lisinopril; Metoprolol; Flagyl; PCN; Tetanus Toxoid Present on Admission - Present on Admission Any Indicators Present on Admission: No History of DVT/PE: No History of Uncontrolled Diabetes: No Urinary Catheter: No Decubitus Ulcer Present: No Review of Systems - Constitutional Constitutional: Headache. absent: Anorexia, Fatigue, Fever - EENT Eyes: Requires Corrective Lenses. absent: Diplopia, Floaters, Photophobia, Loss of Vision Ears: absent: Decreased Hearing, Ear Discharge, Tinnitus Nose/Mouth/Throat: absent: Epistaxis, Nasal Congestion, Nasal Discharge - Cardiovascular Cardiovascular: Chest Pain, Dyspnea, Edema - Respiratory Respiratory: absent: Cough, Dyspnea, Wheezing, Stridor - Gastrointestinal Gastrointestinal: Loose Stools, Nausea. absent: Abdominal Pain, Constipation, Vomiting - Genitourinary Genitourinary: absent: Dysuria, Flank Pain, Hematuria - Musculoskeletal Musculoskeletal: Myalgias Additional comments: Pains to both legs. Uses walker and wheel chair to ambulate. - Integumentary Integumentary: Pruritus, Rash, Skin Ulcer, Sores, Striae, Swelling - Neurological Neurological: Dizziness, Headaches, Tingling - Psychiatric Psychiatric: absent: Panic Attacks - Endocrine Endocrine: absent: Palpitations, Polydipsia, Polyphagia, Polyuria - Hematologic/Lymphatic Hematologic: absent: Easy Bleeding Past Patient History - Past Medical History & Family History Past Medical History?: Yes - Past Social History Smoking Status: Former Smoker Chewing Tobacco Use: No Cigar Use: No Alcohol: None Drugs: Denies Home Situation {Lives}: Alone - CARDIAC Hx Cardiac Disorders: Yes Hx Hypertension: Yes - PULMONARY Hx Respiratory Disorders: No - NEUROLOGICAL Hx Neurological Disorder: Yes HX Cerebrovascular Accident: Yes Hx Seizures: Yes Hx Transient Ischemic Attacks (TIA): Yes - HEENT Hx HEENT Problems: No - RENAL Hx Chronic Kidney Disease: No - ENDOCRINE/METABOLIC Hx Endocrine Disorders: Yes - HEMATOLOGICAL/ONCOLOGICAL Hx Blood Disorders: Yes Hx Leukemia: Yes (1958) - INTEGUMENTARY Hx Dermatological Problems: No - MUSCULOSKELETAL/RHEUMATOLOGICAL Hx Musculoskeletal Disorders: Yes Hx Arthritis: Yes (left shoulder pain) - GASTROINTESTINAL Hx Gastrointestinal Disorders: No - GENITOURINARY/GYNECOLOGICAL Hx Genitourinary Disorders: No - PSYCHIATRIC Hx Psychophysiologic Disorder: No Hx Substance Use: No - SURGICAL HISTORY Hx Orthopedic Surgery: Yes (RT HIP REPLACEMENT, 1988) Other/Comment: LEFT BREAST BIOPSY WITH CLIP 12 YEARS AGO - ANESTHESIA Hx Anesthesia: Yes Hx Anesthesia Reactions: No Hx Malignant Hyperthermia: No Meds Allergies/Adverse Reactions: Allergies Allergy/AdvReac Type Severity Reaction Status Date / Time amlodipine besylate Allergy SWELLING Verified 08/26/16 11:35 [From Norvasc] ciprofloxacin [From Cipro] Allergy RASH Verified 08/26/16 11:35 ciprofloxacin HCl Allergy RASH Verified 08/26/16 11:35 [From Cipro] codeine Allergy RASH Verified 08/26/16 11:35 lisinopril Allergy RASH Verified 08/26/16 11:35 metoprolol tartrate Allergy SWELLING Verified 08/26/16 11:35 [From Lopressor] metronidazole [From Flagyl] Allergy RASH Verified 08/26/16 11:35 Penicillins Allergy RASH Verified 08/26/16 11:35 tetanus toxoid, adsorbed Allergy RASH Verified 08/26/16 11:35 Physical Exam - Constitutional Appears: No Acute Distress - Head Exam Head Exam: ATRAUMATIC - Eye Exam Eye Exam: EOMI, Normal appearance Pupil Exam: NORMAL ACCOMODATION, PERRL - ENT Exam ENT Exam: Mucous Membranes Moist, Normal Exam, Normal External Ear Exam, Normal Oropharynx Additional comments: Full upper dentures and partial lower dentures in place - Neck Exam Neck exam: Negative for: Lymphadenopathy, Tenderness, Thyromegaly - Respiratory Exam Respiratory Exam: Wheezes. absent: Rales, Rhonchi - Cardiovascular Exam Cardiovascular Exam: +S1, +S2. absent: Gallop Additional comments: S1 S2 regular with some irregularities - GI/Abdominal Exam GI & Abdominal Exam: Normal Bowel Sounds, Soft. absent: Hypoactive Bowel Sounds - Rectal Exam Rectal Exam: Deferred - Extremities Exam Extremities exam: Positive for: full ROM, normal inspection, tenderness. Negative for: joint swelling, pedal edema - Back Exam Back exam: NORMAL INSPECTION. absent: CVA tenderness (L), CVA tenderness (R) - Neurological Exam Neurological exam: Alert, CN II-XII Intact, Oriented x3, Reflexes Normal - Psychiatric Exam Psychiatric exam: Normal Affect, Normal Mood - Skin Skin Exam: Dry, Intact, Normal Color, Warm Results - Vital Signs Recent Vital Signs: Last Vital Signs Temp 98.3 F 10/14/16 11:50 Pulse 74 10/14/16 22:58 Resp 16 10/14/16 22:58 BP 166/96 H 10/14/16 22:58 Pulse Ox 99 10/14/16 22:42 - Labs Result Diagrams: 10/14/16 13:12 10/14/16 13:12 - EKG Data EKG comments: Sinus rhythmemini 66/min with PVC in bij - Imaging and Cardiology CT scan - head Status: Image reviewed by me, Report reviewed by me Additional comment: Moderate non specific white matter changes. Left hip X-Ray Status: Image reviewed by me, Report reviewed by me Additional comment: No acute fracture nor dislocation Assessment & Plan - Assessment and Plan (Free Text) Assessment: #. Presyncope #.Abnormal EKG #. HTN #. Hx TIA and CVA Plan: 86 years old female with hx of HTN, DVT, multiple TIAs and CVA , comes to the Ed with seven hours of dizziness and nearing to LOC, associated with parieto- occipital headache, nausea, perioral paresthesias, and tingling sensation to the to the left arm and not feeling well in general. She took Aspirin but without much relief. #. Presyncope r/o Cardiac arrhythmia vs TIA - Consult Dr smith - Cardiac monitoring -. Neuro checks Q4hrs #. Abnormal EKG - Follow EKG - Cardiology on consult #. Diarrhea - Stool for C diff #. HTN - losartan #. Hx TIA and CVA - ASA/Patient not on statins # DVT Prophylaxis with Lovenox #: Code Status: DNR/DNI - Date & Time Date: 10/14/16 Time: 23:36
[2016-10-15 00:08] VITALS: RESP 18
[2016-10-15 05:13] VITALS: BMI 28.9
[2016-10-15 08:21] LABS: TROPONIN I 0.017 ng/mL (0.00-0.120)
[2016-10-15 08:34] LABS: THYROID STIMULATING HORMONE 1.82 mIU/ML (0.46-4.68)
[2016-10-15] MEDS ORDERED: Enoxaparin 40 mg Syringe SC SCH (09:00)
[2016-10-15] MEDS ORDERED: Aspirin 325 mg EC Tablets PO SCH (09:00)
[2016-10-15] MEDS ORDERED: CYANOCOBALAMIN SL SCH (09:00)
--- NOTE | 2016-10-15 10:52 | CP.PCM.DIS ---
Provider - Provider Date of Admission: 10/14/16 22:11 Attending physician: Josh Jasso Primary care physician: Samuel Vargas MD Consults: cardiology consult PT consult Time Spent in preparation of Discharge (in minutes): 15 Hospital Course - Lab Results Lab Results: Most Recent Lab Values WBC 8.0 K/uL (4.8-10.8) D 10/14/16 13:12 RBC 4.59 Mil/uL (3.80-5.20) 10/14/16 13:12 Hgb 13.6 g/dL (12.0-16.0) 10/14/16 13:12 Hct 41.4 % (34.0-47.0) 10/14/16 13:12 MCV 90.3 fl (81.0-99.0) 10/14/16 13:12 MCH 29.6 pg (27.0-31.0) 10/14/16 13:12 MCHC 32.7 g/dL (33.0-37.0) L 10/14/16 13:12 RDW 14.0 % (11.5-14.5) 10/14/16 13:12 Plt Count 261 K/uL (130-400) 10/14/16 13:12 MPV 9.1 fl (7.2-11.7) 10/14/16 13:12 Neut % (Auto) 73.0 % (50.0-75.0) 10/14/16 13:12 Lymph % (Auto) 18.0 % (20.0-40.0) L 10/14/16 13:12 Brewster % (Auto) 7.0 % (0.0-10.0) 10/14/16 13:12 Eos % (Auto) 1.0 % (0.0-4.0) 10/14/16 13:12 Baso % (Auto) 1.0 % (0.0-2.0) 10/14/16 13:12 Neut # 5.8 K/uL (1.8-7.0) 10/14/16 13:12 Lymph # 1.4 K/uL (1.0-4.3) 10/14/16 13:12 Brewster # 0.6 K/uL (0.0-0.8) 10/14/16 13:12 Eos # 0.1 K/uL (0.0-0.7) 10/14/16 13:12 Baso # 0.1 K/uL (0.0-0.2) 10/14/16 13:12 Sodium 139 mmol/l (132-148) 10/14/16 13:12 Potassium 4.6 MMOL/L (3.6-5.0) 10/14/16 13:12 Chloride 106 mmol/L (98-107) 10/14/16 13:12 Carbon Dioxide 25 mmol/L (22-30) 10/14/16 13:12 Anion Gap 12 (10-20) 10/14/16 13:12 BUN 13 mg/dl (7-17) 10/14/16 13:12 Creatinine 0.7 mg/dL (0.7-1.2) 10/14/16 13:12 Est GFR ( Amer) > 60 10/14/16 13:12 Est GFR (Non-Af Amer) > 60 10/14/16 13:12 POC Glucose (mg/dL) 75 mg/dL (65-110) 10/14/16 12:04 Random Glucose 83 mg/dL (65-105) 10/14/16 13:12 Calcium 9.8 mg/dL (8.4-10.2) 10/14/16 13:12 Magnesium 2.1 MG/DL (1.6-2.3) 10/15/16 05:20 Total Bilirubin 0.4 mg/dl (0.2-1.3) 10/14/16 13:12 AST 20 U/L (14-36) 10/14/16 13:12 ALT 31 U/L (9-52) 10/14/16 13:12 Alkaline Phosphatase 54 U/L (38-126) 10/14/16 13:12 Troponin I 0.0170 ng/mL (0.00-0.120) 10/15/16 07:56 Total Protein 7.1 G/DL (6.3-8.2) 10/14/16 13:12 Albumin 4.0 g/dL (3.5-5.0) 10/14/16 13:12 Globulin 3.1 gm/dL (2.2-3.9) 10/14/16 13:12 Albumin/Globulin Ratio 1.3 (1.0-2.1) 10/14/16 13:12 Triglycerides 108 mg/DL (0-149) D 10/15/16 07:56 Cholesterol 201 mg/dL (0-199) H 10/15/16 07:56 LDL Cholesterol Direct 128 mg/dL (0-129) 10/15/16 07:56 HDL Cholesterol 46 MG/DL (30-70) 10/15/16 07:56 TSH 3rd Generation 1.82 mIU/ML (0.46-4.68) 10/15/16 07:56 - Hospital Course Hospital Course: 86 years old female with hx of HTN, DVT, multiple TIAs , neuropathy came to ED with seven hours of dizziness and nearing to LOC . This was associated with parieto-occipital headache, nausea, perioral paresthesias, and tingling sensation to the to the left arm and not feeling well in general. She took Aspirin but without much relief. She referred Diarrhea for 2-3 days left hip pain which increases on movement and had a TIA episode 3 days ago. She stayed at home and the symptoms ceased.CT head showed no acute pathology.Her symptoms had resolved Xray of left hip showed no fracture or dislocation. In ED The Patient's SBP increased 200 .Family was concerned to take patient home. She was placed under observation in telemetry for uncontrolled hypertension. 12 lead EKG showed multiple PVC-s , electrolytes were normal Cardio and PT consulted Patient is hemodynamically stable, afebrile, complaining of left hip pain especially with ambulation, denies any CP, palpitations, numbness or dizziness. Will discharge patient home with home Physical therapy Follow up with Dr. Harper neurologist tomorrow in his office 1. History multiple TIA -s and peeripheral neuropathy Patient asymptomatic on presentation Ct head showed no acute pathology unclear if patient had a recurrent TIA this time. Most likely her symptoms related to neuropathy Continue ASA, Statin, BP control Follow up with neurologist tomorrow in his office 2.Presyncope / abnormal EKG PVC-s seen on 12 lead EKG electrolytes normal cardio consulted no further work up necessary Follow up with her neurologist 3 Diarrhea resolved 4. HTN uncontrolled Continue losartan 5. Chronic left hip pain secondary to OA Hiop xary showed degenerative changes Pt consulted Continue home physical therapy Discharge Exam - Head Exam Head Exam: ATRAUMATIC, NORMOCEPHALIC - Eye Exam Eye Exam: EOMI, Normal appearance, PERRL Pupil Exam: NORMAL ACCOMODATION - ENT Exam ENT Exam: Mucous Membranes Moist, Normal Exam - Neck Exam Neck exam: Full Rom, Normal Inspection - Respiratory Exam Respiratory Exam: Clear to PA & Lateral, NORMAL BREATHING PATTERN. absent: Rales, Rhonchi, Wheezes - Cardiovascular Exam Cardiovascular Exam: REGULAR RHYTHM, RRR, +S1, +S2. absent: JVD - GI/Abdominal Exam GI & Abdominal Exam: Normal Bowel Sounds, Soft. absent: Distended, Guarding, Rebound, Tenderness - Rectal Exam Rectal Exam: Deferred - Extremities Exam Extremities exam: normal capillary refill, normal inspection, pedal pulses present - Back Exam Back exam: NORMAL INSPECTION - Neurological Exam Neurological exam: Alert, CN II-XII Intact, Oriented x3 - Psychiatric Exam Psychiatric exam: Normal Affect - Skin Skin Exam: Dry, Intact, Normal Color, Warm Discharge Plan - Follow Up Plan Condition: GOOD Disposition: HOME/ ROUTINE Patient education suggested?: Yes Instructions: Paresthesia (ED), Hip Pain (ED) Additional Instructions: Follow up with your PCP in 2-3 days. Return for worsening. Referrals: Lewis Harper MD [Staff Provider] - Samuel Vargas MD [Primary Care Provider] -
--- NOTE | 2016-10-15 11:40 | CP.PCM.CON ---
History of Present Illness - History of Present Illness History of Present Illness: THE PATIENT IS AN 86 YEAR OLD FEMALE WITH A HISTORY OF PRIOR CVAS AND TIAS, HYPERTENSION, DVT AND ANEMIA IN THE PAST. SHE NOW STATES THAT SHE SAT UP AND TWISTED HER LEFT HIP AND GOT PAIN AND DIZZY. SHE ALSO HAS A HEADACHE AND PERIORAL AND LEFT ARM TINGLING. SHE DENIES CHEST PAIN, PALPITATIONS OR LOC. SHE CAME TO THE ER AND WAS ADMITTED TO [facility]. CARDIOLOGY WAS ASKED TO SEE HER FOR PVCS. SHE DENIES ANY KNOWN HEART PROBLEMS SUCH CAD OR ANGINA PECTORIS. SHE STATES SHE HAD RHEUMATIC FEVER BUT NOT RHEUMATIC HEART DISEASE. Past Patient History - Past Medical History & Family History Past Medical History?: Yes - Past Social History Smoking Status: Former Smoker Chewing Tobacco Use: No Cigar Use: No Alcohol: None Drugs: Denies Home Situation {Lives}: Alone - CARDIAC Hx Cardiac Disorders: Yes Hx Hypertension: Yes - PULMONARY Hx Respiratory Disorders: No - NEUROLOGICAL Hx Neurological Disorder: Yes HX Cerebrovascular Accident: Yes Hx Seizures: Yes Hx Transient Ischemic Attacks (TIA): Yes - HEENT Hx HEENT Problems: No - RENAL Hx Chronic Kidney Disease: No - ENDOCRINE/METABOLIC Hx Endocrine Disorders: Yes - HEMATOLOGICAL/ONCOLOGICAL Hx Blood Disorders: Yes Hx Leukemia: Yes (1958) - INTEGUMENTARY Hx Dermatological Problems: No - MUSCULOSKELETAL/RHEUMATOLOGICAL Hx Musculoskeletal Disorders: Yes Hx Arthritis: Yes (left shoulder pain) - GASTROINTESTINAL Hx Gastrointestinal Disorders: No - GENITOURINARY/GYNECOLOGICAL Hx Genitourinary Disorders: No - PSYCHIATRIC Hx Psychophysiologic Disorder: No Hx Substance Use: No - SURGICAL HISTORY Hx Orthopedic Surgery: Yes (RT HIP REPLACEMENT, 1988) Other/Comment: LEFT BREAST BIOPSY WITH CLIP 12 YEARS AGO - ANESTHESIA Hx Anesthesia: Yes Hx Anesthesia Reactions: No Hx Malignant Hyperthermia: No Meds Home Medications: Home Medication List Medication Instructions Recorded Confirmed Type Atorvastatin [Lipitor] 10 mg PO DAILY #30 tab 10/15/16 Rx Allergies/Adverse Reactions: Allergies Allergy/AdvReac Type Severity Reaction Status Date / Time amlodipine besylate Allergy SWELLING Verified 08/26/16 11:35 [From Norvasc] ciprofloxacin [From Cipro] Allergy RASH Verified 08/26/16 11:35 ciprofloxacin HCl Allergy RASH Verified 08/26/16 11:35 [From Cipro] codeine Allergy RASH Verified 08/26/16 11:35 lisinopril Allergy RASH Verified 08/26/16 11:35 metoprolol tartrate Allergy SWELLING Verified 08/26/16 11:35 [From Lopressor] metronidazole [From Flagyl] Allergy RASH Verified 08/26/16 11:35 Penicillins Allergy RASH Verified 08/26/16 11:35 tetanus toxoid, adsorbed Allergy RASH Verified 08/26/16 11:35 - Medications Medications: Current Medications Acetaminophen (Tylenol 325mg Tab) 650 mg PO Q6 PRN PRN Reason: Pain, Mild (1-3) Acetaminophen (Tylenol 325mg Tab) 650 mg PO Q6 PRN PRN Reason: Headache Aspirin (Ecotrin) 325 mg PO DAILY [facility] Last Admin: 10/15/16 09:44 Dose: 325 mg Cholecalciferol (Vitamin D) 1,000 iu PO DAILY [facility] Cyanocobalamin (Vitamin B12 1000 Mcg Tab) 1,000 mcg PO DAILY [facility] Enoxaparin Sodium (Lovenox) 40 mg SC DAILY [facility] PRN Reason: Protocol Last Admin: 10/15/16 09:44 Dose: 40 mg Famotidine (Pepcid) 20 mg PO DAILY [facility] Last Admin: 10/15/16 09:44 Dose: 20 mg Furosemide (Lasix) 40 mg PO [place] [facility] Losartan Potassium (Cozaar) 25 mg PO DAILY [facility] Last Admin: 10/15/16 09:43 Dose: 25 mg Timolol Maleate (Timoptic 0.5% [facility]) 1 drop OD QAM [facility] Last Admin: 10/15/16 09:44 Dose: 1 drop Tramadol HCl (Ultram) 50 mg PO Q6 PRN PRN Reason: Other Physical Exam - Respiratory Exam Respiratory Exam: Clear to Auscultation Bilateral - Cardiovascular Exam Cardiovascular Exam: REGULAR RHYTHM, +S1, +S2 Additional comments: 1 SYSTOLIC MURMUR 2ND RICS - Extremities Exam Extremities exam: Positive for: normal inspection - Neurological Exam Additional comments: NO NEUROLOGICAL DEFICITS AT THE PRESENT TIME - Additional Findings Additional findings: EKG AND TELEMETRY MONITORING SHOW SINUS RHYTHM WITH SINGLE PVCS TROPONIN NORMAL X 2 K+ 4.6 CT OF HEAD WITHOUT ACUTE FINDINGS ECHO 09/04 WITH MILD AORTIC VALVE CALCIFICATION WITHOUT STENOSIS, GOOD LV SYSTOLIC FUNCTION Results - Vital Signs Recent Vital Signs: Last Vital Signs Temp 97.5 F L 10/15/16 08:09 Pulse 66 10/15/16 09:43 Resp 18 10/15/16 08:09 BP 134/79 10/15/16 09:43 Pulse Ox 98 10/15/16 08:09 - Labs Result Diagrams: 10/14/16 13:12 10/14/16 13:12 Labs: Laboratory Results - last 24 hr 10/15/16 10/15/16 05:20 07:56 Magnesium 2.1 Troponin I 0.0170 Triglycerides 108 D Cholesterol 201 H LDL Cholesterol Direct 128 HDL Cholesterol 46 TSH 3rd Generation 1.82 Assessment & Plan - Assessment and Plan (Free Text) Assessment: STABLE CARDIAC STATUS-SINGLE PVCS ARE BENIGN HYPERTENSION HISTORY OF TIAS AND CVAS Plan: THE PATIENT WAS ADMITTED TO ON TELEMETRY SHE IS ON LOSARTAN, FUROSEMIDE, ASPIRIN AND LOVENOX OK TO DISCHARGE PATIENT FROM THE CARDIAC [facility]-NO FURTHER CARDIAC MARROQUIN IS NEEDED AT THE PRESENT TIME SHE WILL FU WITH DR ORTIZ
[2016-10-15 16:23] VITALS: BP 105/66; PULSE 77; TEMP 97.6; O2SAT 96
== END 2016-10-15 16:15 | disposition home or self-care (01) ==
LOC: H.ER 11:47 → H.ERHOLD 22:11 → H.TEL 23:30
PROVIDERS: ADMIT Internal Medicine; ATTEND Internal Medicine
DX: R55 Syncope and collapse (principal); E11.42 Type 2 diabetes mellitus with diabetic polyneuropathy; D51.9 Vitamin B12 deficiency anemia, unspecified; G62.9 Polyneuropathy, unspecified; G89.29 Other chronic pain; M16.10 Unilateral primary osteoarthritis, unspecified hip; I10 Essential (primary) hypertension; Z66 Do not resuscitate; Z79.82 Long term (current) use of aspirin; Z85.6 Personal history of leukemia; Z86.73 Personal history of transient ischemic attack (TIA), and cerebral infarction without residual deficits; Z87.891 Personal history of nicotine dependence; Z96.641 Presence of right artificial hip joint; M19.90 Unspecified osteoarthritis, unspecified site; M25.512 Pain in left shoulder; R56.9 Unspecified convulsions; M25.552 Pain in left hip; R19.7 Diarrhea, unspecified
CPT/HCPCS: 36415; 70450; 73501; 80053; 80061; 82948; 83735; 84443; 84484; 85025; 93005; 97116; 97161; 97530; 99284; G0378; G8978; G8979; J1650

== ENCOUNTER 2016-10-28 21:48 | Observation (INO) | payer MEDICARE ==
[2016-10-28 21:48] VITALS: BMI 28.9
[2016-10-28] MEDS ORDERED: Sodium Chloride 0.9% 1,000 ML IV STA (22:39)
[2016-10-28 23:08] LABS: BASO # 0.1 K/uL (0.0-0.2); BASO % 1.5 % (0.0-2.0); EOS # 0.1 K/uL (0.0-0.7); HEMOGLOBIN 12.8 g/dL (12.0-16.0); LYMPH # 1.5 K/uL (1.0-4.3); MEAN CELL VOLUME 90.4 fl (81.0-99.0); MEAN CORPUSCULAR HEMOGLOBIN 29.3 pg (27.0-31.0); MEAN CORPUSCULAR HGB CONC 32.5 g/dL (33.0-37.0); MONO # 0.6 K/uL (0.0-0.8); MONO % 10.7 % (0.0-10.0); NEUT # 3.1 K/uL (1.8-7.0); NEUT % 57.8 % (50.0-75.0); RBC 4.35 Mil/uL (3.80-5.20); RED CELL DISTRIBUTION WIDTH 14.4 % (11.5-14.5); WHITE BLOOD COUNT 5.4 K/uL (4.8-10.8)
[2016-10-28 23:17] LABS: ALB/GLOB RATIO 1.3 (1.0-2.1); ALBUMIN 3.8 g/dL (3.5-5.0); ALT/SGPT 29 U/L (9-52); AST/SGOT 24 U/L (14-36); BLOOD UREA NITROGEN 13 mg/dl (7-17); CALCIUM 9.8 mg/dL (8.4-10.2); GFR AFRICAN-AMERICAN > 60; GFR NON-AFRICAN AMERICAN > 60
[2016-10-28 23:36] LABS: PARTIAL THROMBOPLASTIN TIME 29.3 Seconds (25.6-37.1); PROTHROMBIN TIME 11.6 Seconds (9.8-13.1)
--- NOTE | 2016-10-28 23:57 | ED PDOC ---
HPI: General Adult Time Seen by Provider: 10/28/16 22:12 Chief Complaint (Nursing): Weakness/Neurological Deficit Chief Complaint (Provider): Weakness/Numbness History Per: Patient History/Exam Limitations: no limitations Onset/Duration Of Symptoms: Days (x1) Have you had recent travel within the past 21 days to any of the following countries: [place], [place], [place] or [place]?: No Current Symptoms Are (Timing): Gone Now Recently: Hospitalized (Admitted and discharged for TIA) Additional Complaint(s): 86 year old female presents to ED with complaints of generalized numbness and sense of weakness x1 day and has a past medical history of arthritis, HTN, CHF, CVA, TIA, DVT, and anxiety. Patient states that she was at home when she suddenly felt weak, dizzy, a sense of numbness, and warmth on the posterior aspect of her head. Patient confirms that her symptoms align with her previous TIAs. Patient notes that upon ED arrival, her symptoms have resolved. (-) chest pain, fever, cough, or SOB. (+) nausea and decreased PO intake. Confirms that she was recently hospitalized for TIA, and that she takes 325mg ASA PO QD. PCP: Samuel Vargas Past Medical History Reviewed: Historical Data, Nursing Documentation, Vital Signs Vital Signs: Last Vital Signs Temp 97.5 F L 10/30/16 16:00 Pulse 67 10/30/16 16:00 Resp 18 10/30/16 16:00 BP 104/50 L 10/30/16 16:00 Pulse Ox 96 10/30/16 16:00 - Medical History PMH: Anemia (B12 deficiency), Arthritis (left shoulder pain), CVA, Diabetes, Deep Vein Thrombosis, Fractures (R hip), HTN, Seizures, TIA (x28) Denies: No Chronic Diseases, HIV, Chronic Kidney Disease - Surgical History Other surgeries: Right hip replacement - Family History Family History: States: No Known Family Hx, Hypertension - Social History Current smoker - smoking cessation education provided: No Ex-Smoker (has not smoked in the last 12 months): No Alcohol: None Drugs: Denies - Immunization History Hx Influenza Vaccination: No Hx Pneumococcal Vaccination: No - Home Medications Home Medications: Ambulatory Orders Medication Instructions Recorded Cholecalciferol [Vitamin D 1000 IU] 1,000 unit PO DAILY 08/26/16 Furosemide [Lasix] 40 mg PO DAILY 08/26/16 Glucosamine/MSM/Chondroitin A 2 cap PO TID 08/26/16 [Glucosamine Chondroit MSM Tab] Losartan [Cozaar] 25 mg PO DAILY 08/26/16 Timolol 0.5% Ophth [Timoptic 0.5% 1 drop EACHEYE QAM 08/26/16 Ophth Soln] Aspirin [Aspirin EC] 325 mg PO DAILY 10/14/16 Atorvastatin [Lipitor] 10 mg PO DAILY tab 10/30/16 Famotidine [Pepcid] 20 mg PO BID #60 tab 10/30/16 Sulfamethoxazole/Trimethoprim 1 tab PO Q12 #6 tab 10/30/16 [Bactrim DS Tab] - Allergies Allergies/Adverse Reactions: Allergies Allergy/AdvReac Type Severity Reaction Status Date / Time amlodipine besylate Allergy SWELLING Verified 08/26/16 11:35 [From Norvasc] aspirin [From Aggrenox] Allergy SWELLING Verified 10/29/16 19:47 ciprofloxacin [From Cipro] Allergy RASH Verified 08/26/16 11:35 ciprofloxacin HCl Allergy RASH Verified 08/26/16 11:35 [From Cipro] codeine Allergy RASH Verified 08/26/16 11:35 dipyridamole [From Aggrenox] Allergy SWELLING Verified 10/29/16 19:47 gabapentin [From Neurontin] Allergy SWELLING Verified 10/29/16 19:45 lisinopril Allergy RASH Verified 08/26/16 11:35 metoprolol tartrate Allergy SWELLING Verified 08/26/16 11:35 [From Lopressor] metronidazole [From Flagyl] Allergy RASH Verified 08/26/16 11:35 Penicillins Allergy RASH Verified 08/26/16 11:35 tetanus toxoid, adsorbed Allergy RASH Verified 08/26/16 11:35 Review of Systems ROS Statement: Except As Marked, All Systems Reviewed And Found Negative Constitutional: Negative for: Fever Cardiovascular: Negative for: Chest Pain Respiratory: Negative for: Cough, Shortness of Breath Gastrointestinal: Positive for: Nausea, Other (decreased PO intake) Neurological: Positive for: Weakness, Numbness, Dizziness Physical Exam - Reviewed Nursing Documentation Reviewed: Yes Vital Signs Reviewed: Yes - Physical Exam Appears: Positive for: Non-toxic, No Acute Distress Head Exam: Positive for: ATRAUMATIC Skin: Positive for: Normal Color, Warm, Dry Eye Exam: Positive for: Normal appearance, EOMI, PERRL ENT: Negative for: Normal ENT Inspection (dry mucous membranes) Neck: Positive for: Normal, Painless ROM, Supple Cardiovascular/Chest: Positive for: Regular Rate, Rhythm. Negative for: Murmur Respiratory: Positive for: Normal Breath Sounds. Negative for: Respiratory Distress Gastrointestinal/Abdominal: Positive for: Normal Exam, Soft. Negative for: Tenderness Back: Positive for: Normal Inspection Extremity: Positive for: Normal ROM. Negative for: Deformity Neurologic/Psych: Positive for: Alert, barking machine feeder II-XII (intact), Oriented, Cerebellar Tests (intact). Negative for: Motor/Sensory Deficits - Laboratory Results Result Diagrams: 10/28/16 23:04 10/28/16 23:04 - ECG ECG: Positive for: Interpreted By Me, Viewed By Me ECG Rhythm: Positive for: Sinus Rhythm, Premature Ventricular Contraction Rate: 71 (at 2156) O2 Sat by Pulse Oximetry: 98 (RA) Pulse Ox Interpretation: Normal Medical Decision Making Medical Decision Makin Initial impression: episode of numbness and weakness in setting of known anxiety and previous TIA Initial plan: * EKG * Labs * Trop I * PTT/PT * NS IV * UA As patient is asymptomatic upon arrival to ED and has had extensive CT imaging within the last week, provider discussed with patient and patient's son that CT imaging is not necessary. Patient and son agree with lack of need for CT. 0015 Labs reviewed: no clinically significant abnormalities. Patient will be admitted to [facility] under Dr. Jasso given extensive medical history and recent admission. Dx: dehydration, anxiety, and UTI Scribe Attestation: Documented by Meena Mendez acting as a scribe for Marco A Serna MD. Scribe Attestation: All medical record entries made by the Scribe were at my direction and personally dictated by me. I have reviewed the chart and agree that the record accurately reflects my personal performance of the history, physical exam, medical decision making, and the department course for this patient. I have also personally directed, reviewed, and agree with the discharge instructions and disposition. Disposition - Clinical Impression Clinical Impression: Dehydration, Anxiety, UTI (urinary tract infection) - Patient ED Disposition Is Patient to be Admitted: Yes Discussed With DrZaheer: Josh Jasso ([facility]) Counseled Patient/Family Regarding: Studies Performed - Disposition Disposition Time: 00:15 Condition: GOOD - Pt Status Changed To: Hospital Disposition Of: Observation
[2016-10-29 00:31] LABS: SQUAMOUS EPITHIAL < 1 /hpf (0-5); URINE BACTERIA RARE (<OCC); URINE BILIRUBIN NEGATIVE (NEGATIVE); URINE BLOOD SMALL (NEGATIVE); URINE CLARITY CLEAR (Clear); URINE COLOR STRAW (YELLOW); URINE GLUCOSE (UA) NEG (Normal); URINE LEUKOCYTE ESTERASE SMALL Leu/uL (Negative); URINE NITRATE NEGATIVE (NEGATIVE); URINE PROTEIN NEGATIVE (NEGATIVE); URINE UROBILINOGEN 0.2-1.0 mg/dL (0.2-1.0)
[2016-10-29] MEDS ORDERED: Tmp-Smz 800 mg-160 mg DS Tab PO STA (02:09)
--- NOTE | 2016-10-29 03:03 | CP.PCM.HP ---
History of Present Illness - History of Present Illness History of Present Illness: Chief Complaint: Weakness with Paresthesias HPI: 86 years old female with Hx of DM. CVA, TIA, Seizure and HTN comes with a hx of waking from sleep with a sudden episode gneralized weakness, light headed and numbness about her mouth, tongue and posterior of her head . No headache, nausea,vomits, no chest pain nor palpitations, no dysuria. On arriving at the ED The symptoms were much less. PMH: Anemia (B12 deficiency), CVA, Diabetes, DVT left leg, Refuses Anticoagulant only using ASA;; Fractures (R hip), HTN, Seizures, TIA (x28); Leukemia with Chemo in 1959; Left shoulder pain; Neuropathy; B12 deficiency; PSH: Right THR; Biopsy left breast SH: Former Smoker; No Alcohol; No illegal drug use; Live alone FH: Mother with CVA Father with Brain Ca Son with prostate CA Allergies: Amlodipine, Cipro; Codeine; Lisinopril; Metoprolol; Flagyl; PCN; Tetanus Toxoid Present on Admission - Present on Admission Any Indicators Present on Admission: No History of DVT/PE: No History of Uncontrolled Diabetes: No Urinary Catheter: No Decubitus Ulcer Present: No Review of Systems - Constitutional Constitutional: Weakness. absent: Anorexia, Chills, Fatigue, Fever, Headache - EENT Eyes: Requires Corrective Lenses. absent: Diplopia, Floaters, Photophobia, Sees Flashes Ears: absent: Decreased Hearing, Ear Discharge, Ear Pain, Tinnitus Nose/Mouth/Throat: absent: Epistaxis, Nasal Congestion, Nasal Discharge, Sinus Pain, Sinus Pressure - Cardiovascular Cardiovascular: absent: Chest Pain, Chest Pain at Rest, Dyspnea, Pedal Edema - Respiratory Respiratory: Cough. absent: Dyspnea, Wheezing, Chest Congestion - Gastrointestinal Gastrointestinal: Heartburn. absent: Abdominal Pain, Diarrhea, Nausea, Vomiting - Genitourinary Genitourinary: absent: Dysuria, Flank Pain, Hematuria, Urinary Hesitance - Musculoskeletal Musculoskeletal: Arthralgias, Muscle Weakness, Numbness. absent: Back Pain - Integumentary Integumentary: absent: Pruritus, Rash, Skin Ulcer, Sores, Striae, Swelling - Neurological Neurological: Dizziness, Paresthesias, Weakness. absent: Confusion, Focal Weakness - Psychiatric Psychiatric: Anxiety. absent: Depression, Panic Attacks - Endocrine Endocrine: absent: Palpitations, Polydipsia, Polyphagia, Polyuria - Hematologic/Lymphatic Hematologic: absent: Easy Bleeding, Easy Bruising Past Patient History - Past Medical History & Family History Past Medical History?: Yes - Past Social History Smoking Status: Former Smoker Chewing Tobacco Use: No Cigar Use: No Alcohol: None Drugs: Denies Home Situation {Lives}: Alone, With Family - CARDIAC Hx Hypertension: Yes - PULMONARY Hx Respiratory Disorders: No - NEUROLOGICAL Hx Seizures: Yes Hx Transient Ischemic Attacks (TIA): Yes (x28) - HEENT Hx HEENT Problems: No - RENAL Hx Chronic Kidney Disease: No - ENDOCRINE/METABOLIC Hx Endocrine Disorders: Yes - HEMATOLOGICAL/ONCOLOGICAL Hx Anemia: Yes (B12 deficiency) Hx Human Immunodeficiency Virus (HIV): No - INTEGUMENTARY Hx Dermatological Problems: No - MUSCULOSKELETAL/RHEUMATOLOGICAL Hx Arthritis: Yes (left shoulder pain) Hx Fractures: Yes (R hip) - GASTROINTESTINAL Hx Gastrointestinal Disorders: No - GENITOURINARY/GYNECOLOGICAL Hx Genitourinary Disorders: No - PSYCHIATRIC Hx Anxiety: Yes Hx Substance Use: No - SURGICAL HISTORY Hx Orthopedic Surgery: Yes (RT HIP REPLACEMENT, 1988) Other/Comment: LEFT BREAST BIOPSY WITH CLIP 12 YEARS AGO - ANESTHESIA Hx Anesthesia: Yes Hx Anesthesia Reactions: No Hx Malignant Hyperthermia: No Meds Allergies/Adverse Reactions: Allergies Allergy/AdvReac Type Severity Reaction Status Date / Time amlodipine besylate Allergy SWELLING Verified 08/26/16 11:35 [From Norvasc] ciprofloxacin [From Cipro] Allergy RASH Verified 08/26/16 11:35 ciprofloxacin HCl Allergy RASH Verified 08/26/16 11:35 [From Cipro] codeine Allergy RASH Verified 08/26/16 11:35 lisinopril Allergy RASH Verified 08/26/16 11:35 metoprolol tartrate Allergy SWELLING Verified 08/26/16 11:35 [From Lopressor] metronidazole [From Flagyl] Allergy RASH Verified 08/26/16 11:35 Penicillins Allergy RASH Verified 08/26/16 11:35 tetanus toxoid, adsorbed Allergy RASH Verified 08/26/16 11:35 Physical Exam - Head Exam Head Exam: ATRAUMATIC, NORMAL INSPECTION, NORMOCEPHALIC - Eye Exam Eye Exam: EOMI, Normal appearance Pupil Exam: NORMAL ACCOMODATION, PERRL - ENT Exam ENT Exam: Mucous Membranes Moist, Normal Exam, Normal External Ear Exam, Normal Oropharynx - Neck Exam Neck exam: Positive for: Full Rom, Normal Inspection. Negative for: Lymphadenopathy, Tenderness - Respiratory Exam Respiratory Exam: Clear to Auscultation Bilateral. absent: Rales, Rhonchi, Wheezes - Cardiovascular Exam Cardiovascular Exam: REGULAR RHYTHM, RRR, +S1, +S2 - GI/Abdominal Exam GI & Abdominal Exam: Normal Bowel Sounds, Soft. absent: Mass, Tenderness - Rectal Exam Rectal Exam: Deferred - Extremities Exam Extremities exam: Positive for: full ROM, normal inspection. Negative for: pedal edema - Back Exam Back exam: NORMAL INSPECTION. absent: CVA tenderness (L), CVA tenderness (R) - Neurological Exam Neurological exam: Alert, CN II-XII Intact, Oriented x3, Reflexes Normal - Psychiatric Exam Psychiatric exam: Normal Affect, Normal Mood - Skin Skin Exam: Dry, Intact, Normal Color, Warm Results - Vital Signs Recent Vital Signs: Last Vital Signs Temp 97.7 F 10/28/16 22:00 Pulse 71 10/29/16 02:54 Resp 16 10/28/16 22:00 BP 143/66 10/28/16 22:00 Pulse Ox 98 10/29/16 02:54 - Labs Result Diagrams: 10/28/16 23:04 10/28/16 23:04 - EKG Data EKG comments: Sinus with PVC 71/min Assessment & Plan - Assessment and Plan (Free Text) Assessment: #. Paresthesias #.hx of TIA & CVA #. HTN Plan: 86 years old female with Hx of DM. CVA, TIA, Seizure and HTN comes with a hx of waking from sleep with a sudden episode gneralized weakness, light headed and numbness about her mouth, tongue and posterior of her head . #. Sayda oral Paresthesias probably secondary to Anxiety attack - Observe patient with Neuro checks Q4 hrs #.hx of TIA & CVA - ASA/ lipitor #. HTN - Losartan #. DVT Prophylaxis with SSCD #. Code status: Full - Date & Time Date: 10/29/16 Time: 03:03
[2016-10-29] MEDS ORDERED: Tmp-Smz 800 mg-160 mg DS Tab ONE (04:59)
--- NOTE | 2016-10-29 08:32 | CARD ---
APPROVED REPORT EKG Measurement Heart [id number] <Conclusion> Sinus rhythm with frequent premature ventricular complexes Otherwise normal ECG
[2016-10-29] MEDS: Aspirin 325 mg EC Tablets PO SCH (09:05)
[2016-10-29] MEDS ORDERED: Enoxaparin 40 mg Syringe SC STA (18:15)
[2016-10-29] MEDS: Tmp-Smz 800 mg-160 mg DS Tab PO SCH (20:53)
--- NOTE | 2016-10-29 21:51 | CP.PCM.CON ---
History of Present Illness - History of Present Illness History of Present Illness: WOKE UP WITH NIGHT MARE C/O MULTIPLE SOMATIC COMPLAINTS DIZZY NUMBNESS AROUND MOUTH, NAUSEA AND HEADACHE Past Patient History - Past Medical History & Family History Past Medical History?: Yes - Past Social History Smoking Status: Never Smoked - CARDIAC Hx Cardiac Disorders: Yes Hx Hypertension: Yes - PULMONARY Hx Respiratory Disorders: No - NEUROLOGICAL Hx Neurological Disorder: Yes HX Cerebrovascular Accident: Yes Hx Seizures: No Hx Transient Ischemic Attacks (TIA): Yes (x28) Other/Comment: neuropathy - HEENT Hx HEENT Problems: No - RENAL Hx Chronic Kidney Disease: No - ENDOCRINE/METABOLIC Hx Endocrine Disorders: No - HEMATOLOGICAL/ONCOLOGICAL Hx Blood Disorders: Yes Hx AIDS: No Hx Anemia: Yes (B12 deficiency) Hx Human Immunodeficiency Virus (HIV): No Hx Leukemia: Yes (received chemo 1958) Other/Comment: left leg DVT - INTEGUMENTARY Hx Dermatological Problems: No - MUSCULOSKELETAL/RHEUMATOLOGICAL Hx Arthritis: Yes (left shoulder pain) Hx Falls: No Hx Fractures: Yes (R hip) - GASTROINTESTINAL Hx Gastrointestinal Disorders: No - GENITOURINARY/GYNECOLOGICAL Hx Genitourinary Disorders: No - PSYCHIATRIC Hx Anxiety: Yes Hx Substance Use: No - SURGICAL HISTORY Hx Surgeries: Yes Hx Orthopedic Surgery: Yes (RT HIP REPLACEMENT, 1988) Other/Comment: LEFT BREAST BIOPSY WITH CLIP 12 YEARS AGO - ANESTHESIA Hx Anesthesia: Yes Hx Anesthesia Reactions: No Hx Malignant Hyperthermia: No Has any member of the family had a problem w/ anesthesia?: No Meds Allergies/Adverse Reactions: Allergies Allergy/AdvReac Type Severity Reaction Status Date / Time amlodipine besylate Allergy SWELLING Verified 08/26/16 11:35 [From Norvasc] aspirin [From Aggrenox] Allergy SWELLING Verified 10/29/16 19:47 ciprofloxacin [From Cipro] Allergy RASH Verified 08/26/16 11:35 ciprofloxacin HCl Allergy RASH Verified 08/26/16 11:35 [From Cipro] codeine Allergy RASH Verified 08/26/16 11:35 dipyridamole [From Aggrenox] Allergy SWELLING Verified 10/29/16 19:47 gabapentin [From Neurontin] Allergy SWELLING Verified 10/29/16 19:45 lisinopril Allergy RASH Verified 08/26/16 11:35 metoprolol tartrate Allergy SWELLING Verified 08/26/16 11:35 [From Lopressor] metronidazole [From Flagyl] Allergy RASH Verified 08/26/16 11:35 Penicillins Allergy RASH Verified 08/26/16 11:35 tetanus toxoid, adsorbed Allergy RASH Verified 08/26/16 11:35 - Medications Medications: Current Medications Alprazolam (Xanax) 0.5 mg PO ONCE ONE Stop: 10/29/16 21:40 Aspirin (Ecotrin) 325 mg PO DAILY [facility] Last Admin: 10/29/16 09:05 Dose: 325 mg Atorvastatin Calcium (Lipitor) 10 mg PO DAILY [facility] Last Admin: 10/29/16 09:10 Dose: Not Given Cholecalciferol (Vitamin D) 1,000 iu PO DAILY [facility] Last Admin: 10/29/16 09:05 Dose: 1,000 iu Enoxaparin Sodium (Lovenox) 40 mg SC DAILY [facility] PRN Reason: Protocol Famotidine (Pepcid) 20 mg PO BID [facility] Last Admin: 10/29/16 18:31 Dose: 20 mg Losartan Potassium (Cozaar) 25 mg PO DAILY [facility] Last Admin: 10/29/16 09:06 Dose: 25 mg Timolol Maleate (Timoptic 0.5% Ophth Soln) 1 drop OU QAM [facility] Last Admin: 10/29/16 09:06 Dose: 1 drop Trimethoprim/Sulfamethoxazole (Bactrim Ds Tab) 1 tab PO Q12 [facility] Last Admin: 10/29/16 20:53 Dose: 1 tab Physical Exam - Constitutional Appears: Well - Head Exam Head Exam: ATRAUMATIC, NORMAL INSPECTION - Eye Exam Eye Exam: PERRL Pupil Exam: NORMAL ACCOMODATION, PERRL - Expanded Neurological Exam Expanded Patient oriented to: person, place, time Cranial nerves: EOM's Intact: Normal, Facial Palsey w/Forehead Movement: Normal , Facial Palsey w/o Forehead Movement: Normal, Facial Sensation: Normal, Gag Reflex: Normal, Nystagmus: Normal, Tongue Deviation: Normal Cerebellar Function: Finger to Nose: Normal Upper motor neuron: Babinski Sign: Normal Sensory exam: Lower Extremity Temperature: Abnormal Left, Abnormal Right ( SENSORY MOTOR NEUROPATY ) Neuro motor strength exam: Left Upper Extremity: 4, Right Upper Extremity: 4, Left Lower Extremity: 4, Right Lower Extremity: 4 (DISTAL MUSCLE ATROPY ) DTR: Achilles Tendon Left: 0, Achilles Tendon Right: 0, Bicep Left: 0, Bicep Right: 0, Brachioradialis Left: 0, Brachioradialis Right: 0, Patellar Left: 0, Patellar Right: 0, Tricep Left: 0, Tricep Right: 0 Results - Vital Signs Recent Vital Signs: Last Vital Signs Temp 98.4 F 10/29/16 19:13 Pulse 77 10/29/16 19:13 Resp 20 10/29/16 19:13 BP 163/77 H 10/29/16 19:13 Pulse Ox 97 10/29/16 19:13 - Labs Result Diagrams: 10/28/16 23:04 10/28/16 23:04 Assessment & Plan (1) Anxiety Assessment and Plan: NO LONG TRACT SING EXCEPT HER PRE EXISTING NEUROPATHY - COLLAGEN VASCULAR DISEASE GAIT IS LIMPING DUE TO HER SHORT LEG RT DUE TO HIP PLACEMENT NEEDS EMG AN OP INSOMNIA NEEDS SLEEP HYGIENE PLEASE SCHEDULE HER TO SEE ME FOR HER SLEEP ISSUES Status: Acute - Date & Time Date: 10/29/16 Time: 18:40
--- NOTE | 2016-10-29 22:10 | CP.PCM.PN ---
Subjective - Date & Time of Evaluation Date of Evaluation: 10/29/16 Time of Evaluation: 17:20 - Subjective Subjective: EEG: HIGH THETA WITH LOW ELIAN NO FOCAL SLOWING NO SEIZURE NORMAL FOR HER AGE Objective - Vital Signs/Intake and Output Vital Signs (last 24 hours): Temp Pulse Resp BP Pulse Ox 98.4 F 77 20 163/77 H 97 10/29/16 19:13 10/29/16 19:13 10/29/16 19:13 10/29/16 19:13 10/29/16 19:13 - Medications Medications: Current Medications Aspirin (Ecotrin) 325 mg PO DAILY [facility] Last Admin: 10/29/16 09:05 Dose: 325 mg Atorvastatin Calcium (Lipitor) 10 mg PO DAILY [facility] Last Admin: 10/29/16 09:10 Dose: Not Given Cholecalciferol (Vitamin D) 1,000 iu PO DAILY [facility] Last Admin: 10/29/16 09:05 Dose: 1,000 iu Enoxaparin Sodium (Lovenox) 40 mg SC DAILY [facility] PRN Reason: Protocol Famotidine (Pepcid) 20 mg PO BID [facility] Last Admin: 10/29/16 18:31 Dose: 20 mg Losartan Potassium (Cozaar) 25 mg PO DAILY [facility] Last Admin: 10/29/16 09:06 Dose: 25 mg Timolol Maleate (Timoptic 0.5% [facility]) 1 drop OU QAM [facility] Last Admin: 10/29/16 09:06 Dose: 1 drop Trimethoprim/Sulfamethoxazole (Bactrim Ds Tab) 1 tab PO Q12 [facility] Last Admin: 10/29/16 20:53 Dose: 1 tab - Labs Labs: PT 11.6 Seconds (9.8-13.1) 10/28/16 23:04 INR 1.0 (0.9-1.2) 10/28/16 23:04 APTT 29.3 Seconds (25.6-37.1) 10/28/16 23:04 Assessment and Plan (1) Anxiety Status: Acute
[2016-10-30 07:12] LABS: HDL CHOLESTEROL 32 MG/DL (30-70)
[2016-10-30 07:24] LABS: LDL CHOLESTEROL 84 mg/dL (0-129)
[2016-10-30] MEDS: Aspirin 325 mg EC Tablets PO SCH (08:54)
[2016-10-30] MEDS: Tmp-Smz 800 mg-160 mg DS Tab PO SCH (08:54)
[2016-10-30] MEDS ORDERED: Enoxaparin 40 mg Syringe SC SCH (09:00)
--- NOTE | 2016-10-30 11:21 | CP.PCM.DIS ---
Provider - Provider Date of Admission: 10/29/16 01:51 Attending physician: Josh Jasso Primary care physician: Dr Vargas Consults: Neurology : Dr Martinez Time Spent in preparation of Discharge (in minutes): 30 Diagnosis - Discharge Diagnosis (1) Neuropathy Status: Acute (2) UTI (urinary tract infection) Status: Acute (3) HTN (hypertension) Status: Acute (4) DVT prophylaxis Status: Acute Hospital Course - Lab Results Lab Results: Most Recent Lab Values WBC 5.4 K/uL (4.8-10.8) 10/28/16 23:04 RBC 4.35 Mil/uL (3.80-5.20) 10/28/16 23:04 Hgb 12.8 g/dL (12.0-16.0) 10/28/16 23:04 Hct 39.3 % (34.0-47.0) 10/28/16 23:04 MCV 90.4 fl (81.0-99.0) 10/28/16 23:04 MCH 29.3 pg (27.0-31.0) 10/28/16 23:04 MCHC 32.5 g/dL (33.0-37.0) L 10/28/16 23:04 RDW 14.4 % (11.5-14.5) 10/28/16 23:04 Plt Count 237 K/uL (130-400) 10/28/16 23:04 MPV 9.0 fl (7.2-11.7) 10/28/16 23:04 Neut % (Auto) 57.8 % (50.0-75.0) 10/28/16 23:04 Lymph % (Auto) 28.0 % (20.0-40.0) 10/28/16 23:04 Lucas % (Auto) 10.7 % (0.0-10.0) H 10/28/16 23:04 Eos % (Auto) 2.0 % (0.0-4.0) 10/28/16 23:04 Baso % (Auto) 1.5 % (0.0-2.0) 10/28/16 23:04 Neut # 3.1 K/uL (1.8-7.0) 10/28/16 23:04 Lymph # 1.5 K/uL (1.0-4.3) 10/28/16 23:04 Lucas # 0.6 K/uL (0.0-0.8) 10/28/16 23:04 Eos # 0.1 K/uL (0.0-0.7) 10/28/16 23:04 Baso # 0.1 K/uL (0.0-0.2) 10/28/16 23:04 PT 11.6 Seconds (9.8-13.1) 10/28/16 23:04 INR 1.0 (0.9-1.2) 10/28/16 23:04 APTT 29.3 Seconds (25.6-37.1) 10/28/16 23:04 Sodium 140 mmol/l (132-148) 10/28/16 23:04 Potassium 3.7 MMOL/L (3.6-5.0) 10/28/16 23:04 Chloride 104 mmol/L (98-107) 10/28/16 23:04 Carbon Dioxide 28 mmol/L (22-30) 10/28/16 23:04 Anion Gap 12 (10-20) 10/28/16 23:04 BUN 13 mg/dl (7-17) 10/28/16 23:04 Creatinine 0.7 mg/dL (0.7-1.2) 10/28/16 23:04 Est GFR ( Amer) > 60 10/28/16 23:04 Est GFR (Non-Af Amer) > 60 10/28/16 23:04 Random Glucose 86 mg/dL (65-105) 10/28/16 23:04 Calcium 9.8 mg/dL (8.4-10.2) 10/28/16 23:04 Total Bilirubin 0.3 mg/dl (0.2-1.3) 10/28/16 23:04 AST 24 U/L (14-36) 10/28/16 23:04 ALT 29 U/L (9-52) 10/28/16 23:04 Alkaline Phosphatase 47 U/L (38-126) 10/28/16 23:04 Troponin I < 0.0120 ng/mL (0.00-0.120) 10/28/16 23:04 Total Protein 6.6 G/DL (6.3-8.2) 10/28/16 23:04 Albumin 3.8 g/dL (3.5-5.0) 10/28/16 23:04 Globulin 2.8 gm/dL (2.2-3.9) 10/28/16 23:04 Albumin/Globulin Ratio 1.3 (1.0-2.1) 10/28/16 23:04 Triglycerides 113 mg/DL (0-149) 10/30/16 06:30 Cholesterol 144 mg/dL (0-199) 10/30/16 06:30 LDL Cholesterol Direct 84 mg/dL (0-129) 10/30/16 06:30 HDL Cholesterol 32 MG/DL (30-70) 10/30/16 06:30 Urine Color Straw (YELLOW) 10/29/16 00:07 Urine Clarity Clear (Clear) 10/29/16 00:07 Urine pH 6.0 (5.0-8.0) 10/29/16 00:07 Ur Specific [place] 1.010 (1.003-1.030) 10/29/16 00:07 Urine Protein Negative mg/dL (NEGATIVE) 10/29/16 00:07 Urine Glucose (UA) Neg mg/dL (Normal) 10/29/16 00:07 Urine Ketones Negative mg/dL (NEGATIVE) 10/29/16 00:07 Urine Blood Small (NEGATIVE) 10/29/16 00:07 Urine Nitrate Negative (NEGATIVE) 10/29/16 00:07 Urine Bilirubin Negative (NEGATIVE) 10/29/16 00:07 Urine Urobilinogen 0.2-1.0 mg/dL (0.2-1.0) 10/29/16 00:07 Ur Leukocyte Esterase Small Nain/uL (Negative) 10/29/16 00:07 Urine RBC (Auto) 5 /hpf (0-3) H 10/29/16 00:07 Urine Microscopic WBC 13 /hpf (0-5) H 10/29/16 00:07 Ur Squamous Epith Cells < 1 /hpf (0-5) 10/29/16 00:07 Urine Bacteria Rare (<OCC) 10/29/16 00:07 - Hospital Course Hospital Course: HPI: 86 years old female with Hx of DM. CVA, TIA, Seizure and HTN comes with a hx of waking from sleep with a sudden episode gneralized weakness, light headed and numbness about her mouth, tongue and posterior of her head . No headache, nausea,vomits, no chest pain nor palpitations, no dysuria. Monitored in Telemetry. Neuro checks done. Neurology consulted. Symptoms now resolved. .(1) TIA/CVA ruled out, symptoms prob sec to Neuropathy Status: Acute neurology consulted- Dr Martinez- no long tract signs rec EEG- no seizure Dr Martinez also rec outpt EMG- pt to ff up with Neuro for the test on ASA, Statin Pt was admitted with the same sxs in August and had MRA and MRI of Brain: negative (2) UTI (urinary tract infection) Status: Acute pt is alergic to most abx given Bactrim DS bid (3) HTN (hypertension) Status: Acute controlled with diet (4) DVT prophylaxis Status: Acute Lovenox Discharge Exam - Head Exam Head Exam: ATRAUMATIC, NORMAL INSPECTION - Eye Exam Eye Exam: EOMI, Normal appearance Pupil Exam: NORMAL ACCOMODATION - ENT Exam ENT Exam: Mucous Membranes Moist, Normal External Ear Exam - Neck Exam Neck exam: Full Rom - Respiratory Exam Respiratory Exam: NORMAL BREATHING PATTERN. absent: Wheezes, Respiratory Distress - Cardiovascular Exam Cardiovascular Exam: REGULAR RHYTHM, +S1, +S2 - GI/Abdominal Exam GI & Abdominal Exam: Normal Bowel Sounds, Soft. absent: Tenderness - Extremities Exam Extremities exam: normal capillary refill, pedal pulses present - Back Exam Back exam: FULL ROM. absent: CVA tenderness (L), CVA tenderness (R) - Neurological Exam Neurological exam: Alert, CN II-XII Intact, Oriented x3, Reflexes Normal - Psychiatric Exam Psychiatric exam: Normal Affect, Normal Mood - Skin Skin Exam: Dry, Normal Color, Warm Discharge Plan - Discharge Medications Prescriptions: Famotidine [Pepcid] 20 mg PO BID #60 tab Sulfamethoxazole/Trimethoprim [Bactrim DS Tab] 1 tab PO Q12 #6 tab - Follow Up Plan Condition: GOOD Disposition: HOME/ ROUTINE Instructions: Dehydration (DC), Anxiety (DC) Additional Instructions: Home Physical therapy ff up with Dr Martinez for EMG tae ff up with Dr Vargas in 1-2 wks
[2016-10-30 16:31] VITALS: BP 104/50; RESP 18; TEMP 97.5
[2016-10-31 20:18] VITALS: PULSE 71; O2SAT 98
--- NOTE | 2016-11-12 11:53 | EEG ---
DATE: This is a 16-channel electroencephalogram of awake and drowsy adult. During this study, photic stimulation was performed, hyperventilation was not performed. The resting electroencephalogram consisted of 6 to 7 Hz high theta activities noted in bilateral parietal and occipital leads. Anteriorly, fast activity superimposed with 2 to 3 Hz of delta activity seen. The photic stimulation did not evoke driving response, noted at 2 to 25 Hz. Intermittent movement artifact with background rhythm. CONCLUSION: This is an abnormal electroencephalogram because of persistent slowing throughout the record suggestive of cerebral dysfunction. This is probably secondary to metabolic vascular degenerative process. Please correlate the findings with neurological and radiological studies. Emigdio Martinez MD
== END 2016-10-30 18:45 | disposition home or self-care (01) ==
LOC: H.ER 21:48 → H.ERHOLD 10-29 01:51 → H.TEL 10-29 13:20
PROVIDERS: ADMIT Internal Medicine; ATTEND Internal Medicine
DX: E11.42 Type 2 diabetes mellitus with diabetic polyneuropathy (principal); N39.0 Urinary tract infection, site not specified; E86.0 Dehydration; F41.9 Anxiety disorder, unspecified; G47.00 Insomnia, unspecified; I11.0 Hypertensive heart disease with heart failure; I50.9 Heart failure, unspecified; M19.012 Primary osteoarthritis, left shoulder; Z79.82 Long term (current) use of aspirin; Z79.899 Other long term (current) drug therapy; Z80.8 Family history of malignant neoplasm of other organs or systems; Z82.3 Family history of stroke; Z85.6 Personal history of leukemia; Z86.718 Personal history of other venous thrombosis and embolism; Z86.73 Personal history of transient ischemic attack (TIA), and cerebral infarction without residual deficits; Z87.891 Personal history of nicotine dependence; Z96.641 Presence of right artificial hip joint; D51.9 Vitamin B12 deficiency anemia, unspecified; R56.9 Unspecified convulsions
CPT/HCPCS: 36415; 80053; 80061; 81003; 84484; 85025; 85610; 85730; 87086; 93005; 95816; 97161; 99285; G0378; G8978; G8979; J1650; J7040

== ENCOUNTER 2017-05-30 15:13 | Inpatient (IN) | payer MEDICARE ==
[2017-05-30 15:13] VITALS: BMI 28.9
[2017-05-30 17:16] LABS: BASO # 0.1 K/uL (0.0-0.2); EOS # 0.1 K/uL (0.0-0.7); EOS % 0.9 % (0.0-4.0); HEMOGLOBIN 13.7 g/dL (12.0-16.0); LYMPH % 13.7 % (20.0-40.0); MEAN CELL VOLUME 91.2 fl (81.0-99.0); MEAN CORPUSCULAR HGB CONC 32.9 g/dL (33.0-37.0); MEAN PLATELET VOLUME 8.9 fl (7.2-11.7); MONO # 0.6 K/uL (0.0-0.8); MONO % 7.9 % (0.0-10.0); NEUT # 5.7 K/uL (1.8-7.0); NEUT % 76.5 % (50.0-75.0); NRBC % 0.1 % (0.0-0.0); RBC 4.56 Mil/uL (3.80-5.20); RED CELL DISTRIBUTION WIDTH 14.3 % (11.5-14.5); WHITE BLOOD COUNT 7.4 K/uL (4.8-10.8)
[2017-05-30 17:27] LABS: BLOOD UREA NITROGEN 17 mg/dl (7-17); GFR AFRICAN-AMERICAN > 60; GFR NON-AFRICAN AMERICAN > 60
--- NOTE | 2017-05-30 18:19 | CT ---
PROCEDURE: CT HEAD WITHOUT CONTRAST. HISTORY: Head injury, trauma. COMPARISON: 10/14/2016. CT head. 08/26/2016 MRI brain TECHNIQUE: Axial computed tomography images were obtained through the head/brain without intravenous contrast. Coronal and sagittal reconstructed images. Radiation dose: Total exam DLP = 843.39 mGy-cm. This CT exam was performed using one or more of the following dose reduction techniques: Automated exposure control, adjustment of the mA and/or kV according to patient size, and/or use of iterative reconstruction technique. FINDINGS: HEMORRHAGE: No intracranial hemorrhage. BRAIN: No mass effect or edema. Cortical and cerebellar atrophy identified. Small lacune or infarcts identified on the left. VENTRICLES: Unremarkable. No hydrocephalus. CALVARIUM: Unremarkable. PARANASAL SINUSES: Unremarkable as visualized. No significant inflammatory changes. MASTOID AIR CELLS: Unremarkable as visualized. No inflammatory changes. OTHER FINDINGS: Right periorbital and supraorbital soft tissue swelling without adjacent calvarial or underlying intracranial abnormality. IMPRESSION: No acute intracranial abnormalities. No significant findings to account for the clinical presentation. Periorbital and right supraorbital soft tissue swelling.
--- NOTE | 2017-05-30 18:26 | RAD ---
PROCEDURE: CHEST RADIOGRAPH, 1 VIEW HISTORY: routine COMPARISON: 11/29/2015. FINDINGS: LUNGS: Clear. PLEURA: No pneumothorax or pleural fluid seen. CARDIOVASCULAR: No radiographic findings to suggest acute or significant cardiovascular disease. OSSEOUS STRUCTURES: No significant abnormalities. VISUALIZED UPPER ABDOMEN: Normal. OTHER FINDINGS: None. IMPRESSION: No active disease. No acute/significant interval changes.
--- NOTE | 2017-05-30 18:40 | ED PDOC ---
HPI: General Adult Time Seen by Provider: 05/30/17 16:20 Chief Complaint (Nursing): Trauma Chief Complaint (Provider): head injury History Per: Patient (86 y/o female h/o CVA multiple here with fall after loss of balance today. Notes head injury/left hand injury/left foot injury/right knee pain. Denies any LOC. Denies any chest pain/abdominal pain/back pain. States she lives alone.) Past Medical History Reviewed: Historical Data, Nursing Documentation, Vital Signs Vital Signs: Last Vital Signs Temp 97.8 F 05/30/17 15:17 Pulse 78 05/30/17 15:17 Resp 20 05/30/17 15:17 BP 160/73 H 05/30/17 15:17 Pulse Ox 98 05/30/17 19:57 - Medical History PMH: Anemia (B12 deficiency), Anxiety, Arthritis (left shoulder pain), CVA, Diabetes, Deep Vein Thrombosis, Fractures (R hip), HTN, Seizures, TIA (x28) Denies: HIV, Chronic Kidney Disease - Family History Family History: States: Hypertension - Immunization History Hx Influenza Vaccination: No Hx Pneumococcal Vaccination: No - Home Medications Home Medications: Ambulatory Orders Medication Instructions Recorded Cholecalciferol [Vitamin D 1000 IU] 2,000 unit PO DAILY 08/26/16 Losartan [Cozaar] 25 mg PO DAILY 08/26/16 Timolol 0.5% Ophth [Timoptic 0.5% 1 drop EACHEYE QAM 08/26/16 Ophth Soln] Aspirin [Aspirin EC] 325 mg PO DAILY 10/14/16 Alpha Lipoic Acid [Alpha Lipoic 1 cap PO DAILY 05/30/17 Acid] Cyanocobalamin (Vitamin B-12) 1,000 mcg PO DAILY 05/30/17 [Vitamin B-12] Turmeric/Turmeric Root Extract 1 cap PO DAILY 05/30/17 [Turmeric 500 mg Capsule] - Allergies Allergies/Adverse Reactions: Allergies Allergy/AdvReac Type Severity Reaction Status Date / Time amlodipine besylate Allergy SWELLING Verified 05/30/17 15:17 [From Norvasc] aspirin [From Aggrenox] Allergy SWELLING Verified 05/30/17 15:17 ciprofloxacin [From Cipro] Allergy RASH Verified 05/30/17 15:17 ciprofloxacin HCl Allergy RASH Verified 05/30/17 15:17 [From Cipro] codeine Allergy RASH Verified 05/30/17 15:17 dipyridamole [From Aggrenox] Allergy SWELLING Verified 05/30/17 15:17 gabapentin [From Neurontin] Allergy SWELLING Verified 05/30/17 15:17 lisinopril Allergy RASH Verified 05/30/17 15:17 metoprolol tartrate Allergy SWELLING Verified 05/30/17 15:17 [From Lopressor] metronidazole [From Flagyl] Allergy RASH Verified 05/30/17 15:17 Penicillins Allergy RASH Verified 08/26/16 11:35 tetanus toxoid, adsorbed Allergy RASH Verified 08/26/16 11:35 Review of Systems ROS Statement: Except As Marked, All Systems Reviewed And Found Negative Physical Exam - Reviewed Nursing Documentation Reviewed: Yes Vital Signs Reviewed: Yes - Physical Exam Appears: Positive for: Well, Non-toxic, No Acute Distress Head Exam: Positive for: ATRAUMATIC, NORMAL INSPECTION, NORMOCEPHALIC Skin: Positive for: Normal Color, Warm, DRY Eye Exam: Positive for: EOMI, Normal appearance, PERRL ENT: Positive for: Normal ENT Inspection Neck: Positive for: Normal, Painless ROM Cardiovascular/Chest: Positive for: Regular Rate, Rhythm Respiratory: Positive for: CNT, Normal Breath Sounds Gastrointestinal/Abdominal: Positive for: Normal Exam, Bowel Sounds, Soft Back: Positive for: Normal Inspection Extremity: Positive for: Normal ROM Neurologic/Psych: Positive for: Alert, Oriented - Laboratory Results Result Diagrams: 05/30/17 17:05 05/30/17 17:05 - ECG O2 Sat by Pulse Oximetry: 98 - Progress ED Course And Treament: TYLENOL 650 MG X 1 DOSE XRY OF HAND: FX OF DISTAL AND MIDDLE PHALANX THUMB LEFT HAND NOTED. CT C SPINE:IMPRESSION: No acute fracture. Slight anterior displacement of odontoid tip relative to base cm, likely due to ligamentous laxity. Anterolisthesis at C4-5, grade 1. Otherwise unremarkable. CT HEAD: IMPRESSION: No acute intracranial abnormalities. No significant findings to account for the clinical presentation. Periorbital and right supraorbital soft tissue swelling. CALL PLACED TO DR. KAMERON ROD PLACED IN FINGER SPLINT WITH THUMB. XRY OF KNEE RIGHT: NO ACUTE FX XRY OF LEFT FOOT: NO ACUTE FX D/W DR. LYLES. PATIENT LIVES ALONE/INCREASED FALL RISK DUE TO HAND FX/KNEE INJURY/HEAD INJURY. WILL OBSERVE AND ARRANGE FOLLOW UP CARE INPATIENT. Disposition - Clinical Impression Clinical Impression: Head injury, Fracture of thumb, left, closed, Fall, Loss of balance - Patient ED Disposition Is Patient to be Admitted: Yes - Disposition Disposition Time: 19:16 Condition: FAIR - Pt Status Changed To: Hospital Disposition Of: Observation
--- NOTE | 2017-05-30 18:45 | CT ---
PROCEDURE: CT Cervical Spine without contrast HISTORY: <fall/head injury> COMPARISON: None available. TECHNIQUE: Axial computed tomography images were obtained of the cervical spine without the use of intravenous contrast. Coronal and sagittal reformatted images were created and reviewed. Radiation dose: Total exam DLP = 547.14 mGy-cm. This CT exam was performed using one or more of the following dose reduction techniques: Automated exposure control, adjustment of the mA and/or kV according to patient size, and/or use of iterative reconstruction technique. FINDINGS: VERTEBRAE: The vertebral bodies are maintained in height. The atlantoaxial articulation and odontoid process are intact. There is slight anterior displacement of the tip of the odontoid relative to the PAC on. However, the distance from the odontoid to the basion on is 8 mm, within the normal range. This may be due to laxity of the stabilizing ligaments. There is no evidence of fracture. DISCS/SPINAL CANAL/NEURAL FORAMINA: There is narrowing of the C4-5, C5-6 and C6-7 disc spaces. There is grade 1 anterolisthesis at the C4-5 level, likely degenerative. PARASPINAL SOFT TISSUES: Unremarkable. OTHER FINDINGS: None. IMPRESSION: No acute fracture. Slight anterior displacement of odontoid tip relative to base cm, likely due to ligamentous laxity. Anterolisthesis at C4-5, grade 1. Otherwise unremarkable.
[2017-05-30 18:49] LABS: INR 1.1 (0.9-1.2); PARTIAL THROMBOPLASTIN TIME 29.9 Seconds (25.6-37.1); PROTHROMBIN TIME 11.8 Seconds (9.8-13.1)
--- NOTE | 2017-05-30 19:23 | CP.PCM.HP ---
History of Present Illness - History of Present Illness History of Present Illness: 86 years old female with Hx of CVA, TIA, Seizure and HTN presents to the ED today after a mechanical fall after losing her balance. She states she has been feeling progressively weaker over the past few months, and has been increasingly weak the past few days. Patient did not lose consciousness, denies any seizure sx or post ictal features. CT head neg for bleed. Pt does have L thumb fracture. CXR negative. Urine pending. Patient unable to ambulate independently at this time, unsafe discharge home. Will obtain PT eval for possible subacute rehab. Plan is for patient to move in with her son in the near future. HD stable, nad. ROS: per HPI all other systems reviewed and negative PMH: Anemia (B12 deficiency), CVA, Diabetes, DVT left leg, Refuses Anticoagulant only using ASA;; Fractures (R hip), HTN, Seizures, TIA (x28); Leukemia with Chemo in 1958; Left shoulder pain; Neuropathy; B12 deficiency; PSH: Right THR; Biopsy left breast SH: Former Smoker; No Alcohol; No illegal drug use; Live alone FH: Mother with CVA Father with Brain Ca Son with prostate CA Allergies: Amlodipine, Cipro; Codeine; Lisinopril; Metoprolol; Flagyl; PCN; Tetanus Toxoid Vitals Reviewed GEN: alert, cooperative HEENT: large R eye hematoma, PERRL, EOMI HEART: RRR, +S1S2, NO MRG LUNG: CTAB, NO WRR ABD: SOFT, NT, ND, NO HSM, NO MASSES EXT: NORMAL PEDAL PULSES, GOOD CAPILLARY REFILL NEURO: AAOX3, STRENGTH EQUAL BILATERAL UPPER AND LOWER EXTREMITIES SKIN: WARM, DRY PSYCH: NORMAL MOOD, NORMAL AFFECT Present on Admission - Present on Admission Any Indicators Present on Admission: No Past Patient History - Past Medical History & Family History Past Medical History?: Yes - Past Social History Smoking Status: Never Smoked - CARDIAC Hx Hypertension: Yes - PULMONARY Hx Respiratory Disorders: No - NEUROLOGICAL Hx Seizures: Yes Hx Transient Ischemic Attacks (TIA): Yes (x28) - HEENT Hx HEENT Problems: No - RENAL Hx Chronic Kidney Disease: No - ENDOCRINE/METABOLIC Hx Endocrine Disorders: No - HEMATOLOGICAL/ONCOLOGICAL Hx Anemia: Yes (B12 deficiency) Hx Human Immunodeficiency Virus (HIV): No - INTEGUMENTARY Hx Dermatological Problems: No - MUSCULOSKELETAL/RHEUMATOLOGICAL Hx Arthritis: Yes (left shoulder pain) Hx Fractures: Yes (R hip) - GASTROINTESTINAL Hx Gastrointestinal Disorders: No - GENITOURINARY/GYNECOLOGICAL Hx Genitourinary Disorders: No - PSYCHIATRIC Hx Anxiety: Yes - SURGICAL HISTORY Hx Surgeries: Yes Hx Orthopedic Surgery: Yes (RT HIP REPLACEMENT, 1988) Other/Comment: LEFT BREAST BIOPSY WITH CLIP 12 YEARS AGO - ANESTHESIA Hx Anesthesia: Yes Hx Anesthesia Reactions: No Hx Malignant Hyperthermia: No Meds Allergies/Adverse Reactions: Allergies Allergy/AdvReac Type Severity Reaction Status Date / Time amlodipine besylate Allergy SWELLING Verified 05/30/17 15:17 [From Norvasc] aspirin [From Aggrenox] Allergy SWELLING Verified 05/30/17 15:17 ciprofloxacin [From Cipro] Allergy RASH Verified 05/30/17 15:17 ciprofloxacin HCl Allergy RASH Verified 05/30/17 15:17 [From Cipro] codeine Allergy RASH Verified 05/30/17 15:17 dipyridamole [From Aggrenox] Allergy SWELLING Verified 05/30/17 15:17 gabapentin [From Neurontin] Allergy SWELLING Verified 05/30/17 15:17 lisinopril Allergy RASH Verified 05/30/17 15:17 metoprolol tartrate Allergy SWELLING Verified 05/30/17 15:17 [From Lopressor] metronidazole [From Flagyl] Allergy RASH Verified 05/30/17 15:17 Penicillins Allergy RASH Verified 08/26/16 11:35 tetanus toxoid, adsorbed Allergy RASH Verified 08/26/16 11:35 Results - Vital Signs Recent Vital Signs: Last Vital Signs Temp 97.8 F 05/30/17 15:17 Pulse 78 05/30/17 15:17 Resp 20 05/30/17 15:17 BP 160/73 H 05/30/17 15:17 Pulse Ox 98 05/30/17 18:41 - Labs Result Diagrams: 05/30/17 17:05 05/30/17 17:05 Labs: Laboratory Results - last 24 hr 05/30/17 05/30/17 05/30/17 17:05 17:05 17:57 WBC 7.4 RBC 4.56 Hgb 13.7 Hct 41.6 MCV 91.2 MCH 30.0 MCHC 32.9 L RDW 14.3 Plt Count 267 MPV 8.9 Neut % (Auto) 76.5 H Lymph % (Auto) 13.7 L Saline % (Auto) 7.9 Eos % (Auto) 0.9 Baso % (Auto) 1.0 Neut # (Auto) 5.7 Lymph # (Auto) 1.0 Saline # (Auto) 0.6 Eos # (Auto) 0.1 Baso # (Auto) 0.1 PT 11.8 INR 1.1 APTT 29.9 Sodium 140 Potassium 3.7 Chloride 100 Carbon Dioxide 29 Anion Gap 15 BUN 17 Creatinine 0.6 L Est GFR ( Amer) > 60 Est GFR (Non-Af Amer) > 60 Random Glucose 126 H Calcium 10.0 Troponin I < 0.0120 Assessment & Plan - Assessment and Plan (Free Text) Plan: 86 years old female with Hx of CVA, TIA, Seizure and HTN presents to the ED today after a mechanical fall after losing her balance. She states she has been feeling progressively weaker over the past few months, and has been increasingly weak the past few days. Patient did not lose consciousness, denies any seizure sx or post ictal features. CT head neg for bleed. Pt does have L thumb fracture. CXR negative. Urine pending. Patient unable to ambulate independently at this time, unsafe discharge home. Will obtain PT eval for possible subacute rehab. Plan is for patient to move in with her son in the near future. Mechanical Fall Progressive weakness Unstable Gait Unsafe discharge home PT/OT evaluation L thumb fracture Ibuprofen 400 mg PO Q6 PRN Ondansetron 4 mg IVP Q6 PRN HTN Hx CVA and TIA Aspirin 325 mg PO DAILY Losartan 25 mg PO DAILY VTE ppx scds for recent large facial hematoma consider starting lovenox tomorrow
[2017-05-30 23:31] LABS: SQUAMOUS EPITHIAL 1 /hpf (0-5); URINE BILIRUBIN NEGATIVE (NEGATIVE); URINE BLOOD NEGATIVE (NEGATIVE); URINE CLARITY SLIGHTY-CLOUDY (Clear); URINE COLOR YELLOW (YELLOW); URINE GLUCOSE (UA) NEG (Normal); URINE LEUKOCYTE ESTERASE MOD Leu/uL (Negative); URINE NITRATE NEGATIVE (NEGATIVE); URINE PROTEIN NEGATIVE (NEGATIVE); URINE UROBILINOGEN 0.2-1.0 mg/dL (0.2-1.0)
[2017-05-31 06:40] LABS: HEMOGLOBIN 11.6 g/dL (12.0-16.0); MEAN CELL VOLUME 91.9 fl (81.0-99.0); MEAN CORPUSCULAR HEMOGLOBIN 29.4 pg (27.0-31.0); RBC 3.94 Mil/uL (3.80-5.20); WHITE BLOOD COUNT 5.5 K/uL (4.8-10.8)
[2017-05-31 08:55] LABS: BLOOD UREA NITROGEN 13 mg/dl (7-17); CALCIUM 9.3 mg/dL (8.4-10.2); GFR AFRICAN-AMERICAN > 60; GFR NON-AFRICAN AMERICAN > 60
[2017-05-31] MEDS: Aspirin 325 mg EC Tablets PO SCH (09:08)
--- NOTE | 2017-05-31 10:31 | CARD ---
APPROVED REPORT EKG Measurement Heart [id number] <Conclusion> Normal sinus rhythm Cannot rule out Anterior infarct, age undetermined Abnormal ECG
--- NOTE | 2017-05-31 11:10 | CP.PCM.PN ---
Subjective - Date & Time of Evaluation Date of Evaluation: 05/31/17 Time of Evaluation: 11:08 - Subjective Subjective: feeling improved, swelling improved on face, hwoever continues to have pain from sprained ankle and thumb fracture still does not feel she can ambulate HD stable NAD no other complaints Objective - Vital Signs/Intake and Output Vital Signs (last 24 hours): Temp Pulse Resp BP Pulse Ox 97.3 F L 80 16 119/59 L 97 05/31/17 06:49 05/31/17 06:49 05/31/17 03:40 05/31/17 06:49 05/31/17 06:49 - Medications Medications: Current Medications Aspirin (Ecotrin) 325 mg PO DAILY [facility] Last Admin: 05/31/17 09:08 Dose: 325 mg Ibuprofen (Motrin Tab) 400 mg PO Q6 PRN PRN Reason: Fever >100.4 F Last Admin: 05/31/17 09:14 Dose: 400 mg Losartan Potassium (Cozaar) 25 mg PO DAILY [facility] Last Admin: 05/31/17 09:17 Dose: Not Given Ondansetron HCl (Zofran Inj) 4 mg IVP Q6 PRN PRN Reason: Nausea/Vomiting Timolol Maleate (Timoptic 0.5% Oph Soln) 1 drop OU QAM [facility] Last Admin: 05/31/17 09:09 Dose: 1 drop Tramadol HCl (Ultram) 50 mg PO Q6 PRN PRN Reason: Pain, moderate (4-7) Last Admin: 05/31/17 03:43 Dose: 50 mg - Labs Labs: 05/31/17 04:50 05/31/17 07:39 PT 11.8 Seconds (9.8-13.1) 05/30/17 17:57 INR 1.1 (0.9-1.2) 05/30/17 17:57 APTT 29.9 Seconds (25.6-37.1) 05/30/17 17:57 - Constitutional Appears: Non-toxic, No Acute Distress - Head Exam Head Exam: NORMOCEPHALIC. absent: ATRAUMATIC - Eye Exam Eye Exam: EOMI, Normal appearance, PERRL Pupil Exam: NORMAL ACCOMODATION, PERRL - ENT Exam ENT Exam: Mucous Membranes Moist, Normal Exam - Neck Exam Neck Exam: Full ROM, Normal Inspection - Respiratory Exam Respiratory Exam: Clear to Ausculation Bilateral, NORMAL BREATHING PATTERN - Cardiovascular Exam Cardiovascular Exam: RRR, +S1, +S2 - GI/Abdominal Exam GI & Abdominal Exam: Soft, Normal Bowel Sounds - Extremities Exam Extremities Exam: Full ROM, Normal Capillary Refill - Back Exam Back Exam: NORMAL INSPECTION. absent: rash noted - Neurological Exam Neurological Exam: Alert, Awake, Oriented x3 - Psychiatric Exam Psychiatric exam: Normal Affect (\), Normal Mood - Skin Skin Exam: Dry, Normal Color, Warm Assessment and Plan - Assessment and Plan (Free Text) Plan: 86 years old female with Hx of CVA, TIA, Seizure and HTN presents to the ED today after a mechanical fall after losing her balance. She states she has been feeling progressively weaker over the past few months, and has been increasingly weak the past few days. Patient did not lose consciousness, denies any seizure sx or post ictal features. CT head neg for bleed. Pt does have L thumb fracture. CXR negative. Urine pending. Patient unable to ambulate independently at this time, unsafe discharge home. Will obtain PT eval for possible subacute rehab. Plan is for patient to move in with her son in the near future. Mechanical Fall Progressive weakness Unstable Gait Unsafe discharge home PT/OT evaluation continue PT, fall precautions L thumb fracture Ibuprofen 400 mg PO Q6 PRN Ondansetron 4 mg IVP Q6 PRN continue pain control HTN Hx CVA and TIA Aspirin 325 mg PO DAILY Losartan 25 mg PO DAILY VTE ppx scds for recent large facial hematoma consider starting lovenox tomorrow
--- NOTE | 2017-05-31 13:15 | RAD ---
PROCEDURE: Right knee dated 05/30/2017. HISTORY: Knee pain. COMPARISON: Correlation made with radiographs of the left knee dated 05/25/2013. FINDINGS: BONES: No evidence of acute displaced fracture nor dislocation. The osseous structures intact. Speckled granular sclerotic changes are seen within the distal right femoral shaft that may represent bone infarct changes. . Follow-up MRI could be performed for further evaluation if necessary and to exclude other pathology enchondroma or less likely chondrosarcoma. JOINTS: Joint spaces relatively preserved. JOINT EFFUSION: None. OTHER FINDINGS: None. IMPRESSION: No acute acute displaced fracture nor dislocation. Speckled granular sclerotic changes are seen within the distal right femoral shaft that may represent bone infarct changes. . Follow-up MRI could be performed for further evaluation if necessary and to exclude other pathology enchondroma or less likely chondrosarcoma. Note this report was placed in [facility] review folder for followup
--- NOTE | 2017-05-31 13:22 | RAD ---
PROCEDURE: Left Foot Radiographs. HISTORY: injury COMPARISON: Comparison made with left foot radiographs 04/26/2014. FINDINGS: BONES: Norm no evidence of acute displaced fracture nor dislocation. Osseous structures appear intact. No cortical destructive changes. Made of a small bony protuberance arising from the lateral distal margin of the proximal phalanx 4th toe which could represent tiny osteophyte. . Small posterior calcaneal enthesophyte formation. JOINTS: . Mild hallux valgus deformity with slight degenerative changes 1st MTP joint. . There is also slight degenerative changes of the sesamoid bones 1st digit. Hammertoe deformities of the 2nd 3rd and 4th digits SOFT TISSUES: Normal. OTHER FINDINGS: None. IMPRESSION: No definitive evidence of acute displaced fracture nor dislocation. Consider repeat radiographs 7-10 days if symptoms persist or occult fracture suspected clinically deemed. Alternately, MRI could be obtained if necessary. Mild hallux valgus deformity with mild DJD 1st MTP joint. Mild hammertoe deformities 2nd 3rd and 4th digits.
--- NOTE | 2017-05-31 13:41 | RAD ---
PROCEDURE: Left hand dated 05/30/2017. HISTORY: Thumb injury. COMPARISON: None. FINDINGS: BONES: There is a comminuted intra-articular fracture of the proximal 1/3 proximal phalanx left thumb. 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 . Mild degenerative osteoarthritis DIP and to a lesser degree PIP joints and intercarpal joints. . SOFT TISSUES: Normal. OTHER FINDINGS: None. IMPRESSION: Comminuted intra-articular fractures of the proximal and distal phalanges of the left thumb. Note that this report was placed in PA review folder for followup. . Degenerative osteoarthritis as detailed above. .
[2017-06-01] MEDS: Aspirin 325 mg EC Tablets PO SCH (09:10)
--- NOTE | 2017-06-01 09:41 | CP.PCM.PN ---
Subjective - Date & Time of Evaluation Date of Evaluation: 06/01/17 Time of Evaluation: 09:38 - Subjective Subjective: pt no complaints, just feels weak no cp sob calf tenderness HD stable NAD Objective - Vital Signs/Intake and Output Vital Signs (last 24 hours): Temp Pulse Resp BP Pulse Ox 97.6 F 106 H 18 117/71 95 06/01/17 08:19 06/01/17 09:09 06/01/17 08:19 06/01/17 09:09 06/01/17 08:19 Intake and Output: GEN: WDWN, ALERT, COOPERATIVE HEENT: NCAT, PERRL, EOMI HEART: RRR, +S1S2, NO MRG LUNG: CTAB, NO WRR ABD: SOFT, NT, ND, NO HSM, NO MASSES EXT: NORMAL PEDAL PULSES, GOOD CAPILLARY REFILL NEURO: AAOX3, STRENGTH EQUAL BILATERAL UPPER AND LOWER EXTREMITIES SKIN: WARM, DRY PSYCH: NORMAL MOOD, NORMAL AFFECT - Medications Medications: Current Medications Aspirin (Ecotrin) 325 mg PO DAILY [facility] Last Admin: 06/01/17 09:10 Dose: 325 mg Ibuprofen (Motrin Tab) 400 mg PO Q6 PRN PRN Reason: Fever >100.4 F Last Admin: 05/31/17 17:17 Dose: 400 mg Losartan Potassium (Cozaar) 25 mg PO DAILY [facility] Last Admin: 06/01/17 09:09 Dose: 25 mg Ondansetron HCl (Zofran Inj) 4 mg IVP Q6 PRN PRN Reason: Nausea/Vomiting Timolol Maleate (Timoptic 0.5% Ophth Soln) 1 drop OU QAM [facility] Last Admin: 06/01/17 09:10 Dose: 1 drop Tramadol HCl (Ultram) 50 mg PO Q6 PRN PRN Reason: Pain, moderate (4-7) Last Admin: 05/31/17 03:43 Dose: 50 mg - Labs Labs: 05/31/17 04:50 05/31/17 07:39 PT 11.8 Seconds (9.8-13.1) 05/30/17 17:57 INR 1.1 (0.9-1.2) 05/30/17 17:57 APTT 29.9 Seconds (25.6-37.1) 05/30/17 17:57 Assessment and Plan - Assessment and Plan (Free Text) Plan: 86 years old female with Hx of CVA, TIA, Seizure and HTN presents to the ED today after a mechanical fall after losing her balance. She states she has been feeling progressively weaker over the past few months, and has been increasingly weak the past few days. Patient did not lose consciousness, denies any seizure sx or post ictal features. CT head neg for bleed. Pt does have L thumb fracture. CXR negative. Urine pending. Patient unable to ambulate independently at this time, unsafe discharge home. Will obtain PT eval for possible subacute rehab. Plan is for patient to move in with her son in the near future. Mechanical Fall Progressive weakness Unstable Gait Unsafe discharge home PT/OT evaluation continue PT, fall precautions L thumb fracture Ibuprofen 400 mg PO Q6 PRN Ondansetron 4 mg IVP Q6 PRN continue pain control HTN Hx CVA and TIA Aspirin 325 mg PO DAILY Losartan 25 mg PO DAILY Anemia likely due to hydration as well as hematoma will hold lovenox recheck H/H tomorrow VTE ppx scds for recent large facial hematoma consider starting lovenox tomorrow
--- NOTE | 2017-06-01 16:42 | US ---
HISTORY: r/o DVT . PRIORS: None. FINDINGS: 2-D, color and duplex Doppler analysis of the lower extremity venous circulation using routine protocol from the femoral veins through the popliteal veins. Venous compressibility: Normal. Flow and augmentation patterns: Normal. Visualized veins upper third of calf: Normal. Mcdaniel cyst: None. Incidental 1.8 cm left inguinal lymph node. IMPRESSION: No sonographic or Doppler evidence for DVT in left lower extremity. Incidentally noted 1.8 cm left inguinal lymph node.
[2017-06-01] MEDS: Famotidine 40 MG/5 ML PO SCH (17:36)
[2017-06-02 06:02] LABS: HEMOGLOBIN 12.4 g/dL (12.0-16.0); MEAN CORPUSCULAR HGB CONC 33.4 g/dL (33.0-37.0); RBC 4.11 Mil/uL (3.80-5.20); RED CELL DISTRIBUTION WIDTH 13.8 % (11.5-14.5)
[2017-06-02] MEDS: Famotidine 40 MG/5 ML PO SCH ×2 (08:35→17:56)
[2017-06-02] MEDS: Aspirin 325 mg EC Tablets PO SCH (08:37)
--- NOTE | 2017-06-02 11:00 | CP.PCM.PN ---
Subjective - Date & Time of Evaluation Date of Evaluation: 06/02/17 Time of Evaluation: 10:10 - Subjective Subjective: 86 y/o F evaluated and examined by bedside. Pt report feeling better, still c/o weakness on both legs but with less intensity as yesterday. - Pt moves and ambulates with assistance of a nurse from bed to bathroom. - Pt also complains of right facial pain where hematoma and ecchymosis are present. - Pt anxious about orthopedics evaluating her L thumb fracture as she would like to get rid of her big cast. - Pt reports humble-oral paresthesias is still present, described as mild numbness. Objective - Vital Signs/Intake and Output Vital Signs (last 24 hours): Temp Pulse Resp BP Pulse Ox 98.3 F 78 18 138/75 94 L 06/02/17 05:05 06/02/17 08:37 06/02/17 05:05 06/02/17 08:37 06/02/17 05:05 - Medications Medications: Current Medications Aspirin (Ecotrin) 325 mg PO DAILY [facility] Last Admin: 06/02/17 08:37 Dose: 325 mg Famotidine (Pepcid) 20 mg PO BID [facility] Last Admin: 06/02/17 08:35 Dose: 20 mg Losartan Potassium (Cozaar) 25 mg PO DAILY [facility] Last Admin: 06/02/17 08:37 Dose: 25 mg Ondansetron HCl (Zofran Inj) 4 mg IVP Q6 PRN PRN Reason: Nausea/Vomiting Timolol Maleate (Timoptic 0.5% Oph Soln) 1 drop OU QAM [facility] Last Admin: 06/02/17 08:35 Dose: 1 drop Tramadol HCl (Ultram) 50 mg PO Q6 PRN PRN Reason: Pain, moderate (4-7) Last Admin: 06/01/17 18:00 Dose: 50 mg - Labs Labs: 06/02/17 04:20 05/31/17 07:39 PT 11.8 Seconds (9.8-13.1) 05/30/17 17:57 INR 1.1 (0.9-1.2) 05/30/17 17:57 APTT 29.9 Seconds (25.6-37.1) 05/30/17 17:57 - Constitutional Appears: Well, No Acute Distress - Head Exam Additional comments: Presence of a minor laceration of R frontal area. R orbital hematoma present. Ecchymosis covers maxillary area, periorbital area and extend from nose to ear. - Eye Exam Eye Exam: Conjunctival injection, EOMI, Normal appearance - ENT Exam ENT Exam: Mucous Membranes Dry - Neck Exam Neck Exam: Full ROM. absent: Meningismus - Respiratory Exam Respiratory Exam: Clear to Ausculation Bilateral, NORMAL BREATHING PATTERN - Cardiovascular Exam Cardiovascular Exam: REGULAR RHYTHM, +S1, +S2 - GI/Abdominal Exam GI & Abdominal Exam: Soft, Normal Bowel Sounds. absent: Tenderness - Neurological Exam Neurological Exam: Alert, Awake, Oriented x3 Additional comments: Presence of weakness on bilateral lower extremities. Assessment and Plan - Assessment and Plan (Free Text) Assessment: 86 y/o F with a PMHx of CVA, TIA and HTN admitted for evaluation of mechanical fall and unsteady gait. Plan: 1. Mechanical Fall/Progressive weakness/Unstable Gait/Unsafe discharge home - Hx CVA and TIA - CT head neg for bleed - CXR negative - PT/OT evaluation - continue PT, fall precautions - US Doppler on 06/01 shows No evidence of DVT and incidental finding of 1.8cm inguinal lymph node. - Lumbar spine X ray showed moderate to fairly significant multilevel degenerative spondylosis, chronic anterior stature loss of the L2, L3 and L4 segments. - Bilateral Hip X ray: No acute findings. 2. L thumb fracture - Ibuprofen 400 mg PO Q6 PRN - Tramadol 50mg PO Q6H - Ondansetron 4 mg IVP Q6 PRN - Consult to Orthopedic Surgeon. 3. R facial hematoma/ecchymosis - Consult to Wound care 4. HTN - Hx CVA and TIA - Aspirin 325 mg PO DAILY - Losartan 25 mg PO DAILY 5. Anemia - likely due to hydration as well as hematoma - will hold lovenox - recheck H/H tomorrow 6. DVT Prophylaxis. - SCD for recent large facial hematoma - ???Lovenox tomorrow???
--- NOTE | 2017-06-02 11:22 | CP.PCM.CON ---
Past Patient History - Past Medical History & Family History Past Medical History?: Yes - Past Social History Smoking Status: Former Smoker - CARDIAC Hx Hypertension: Yes - PULMONARY Hx Respiratory Disorders: No - NEUROLOGICAL HX Cerebrovascular Accident: Yes - HEENT Hx HEENT Problems: No - RENAL Hx Chronic Kidney Disease: No - ENDOCRINE/METABOLIC Hx Endocrine Disorders: No - HEMATOLOGICAL/ONCOLOGICAL Hx AIDS: No Hx Anemia: Yes (B12 deficiency) Hx Chemotherapy: Yes Hx Human Immunodeficiency Virus (HIV): No Hx Leukemia: Yes - INTEGUMENTARY Hx Dermatological Problems: No - MUSCULOSKELETAL/RHEUMATOLOGICAL Hx Arthritis: Yes (left shoulder pain) Hx Falls: Yes Hx Fractures: Yes (R hip) Hx Unsteady Gait: Yes - GASTROINTESTINAL Hx Gastrointestinal Disorders: No - GENITOURINARY/GYNECOLOGICAL Hx Genitourinary Disorders: No - PSYCHIATRIC Hx Anxiety: Yes Hx Substance Use: No - SURGICAL HISTORY Hx Surgeries: Yes Hx Breast Biopsy: Yes Hx Orthopedic Surgery: Yes (RT HIP REPLACEMENT, 1988) Other/Comment: LEFT BREAST BIOPSY WITH CLIP 12 YEARS AGO - ANESTHESIA Hx Anesthesia: Yes Hx Anesthesia Reactions: No Hx Malignant Hyperthermia: No Has any member of the family had a problem w/ anesthesia?: No Meds Allergies/Adverse Reactions: Allergies Allergy/AdvReac Type Severity Reaction Status Date / Time amlodipine besylate Allergy SWELLING Verified 05/30/17 15:17 [From Norvasc] aspirin [From Aggrenox] Allergy SWELLING Verified 05/30/17 15:17 ciprofloxacin [From Cipro] Allergy RASH Verified 05/30/17 15:17 ciprofloxacin HCl Allergy RASH Verified 05/30/17 15:17 [From Cipro] codeine Allergy RASH Verified 05/30/17 15:17 dipyridamole [From Aggrenox] Allergy SWELLING Verified 05/30/17 15:17 gabapentin [From Neurontin] Allergy SWELLING Verified 05/30/17 15:17 lisinopril Allergy RASH Verified 05/30/17 15:17 metoprolol tartrate Allergy SWELLING Verified 05/30/17 15:17 [From Lopressor] metronidazole [From Flagyl] Allergy RASH Verified 05/30/17 15:17 Penicillins Allergy RASH Verified 08/26/16 11:35 tetanus toxoid, adsorbed Allergy RASH Verified 08/26/16 11:35 - Medications Medications: Current Medications Aspirin (Ecotrin) 325 mg PO DAILY [facility] Last Admin: 06/02/17 08:37 Dose: 325 mg Famotidine (Pepcid) 20 mg PO BID [facility] Last Admin: 06/02/17 08:35 Dose: 20 mg Losartan Potassium (Cozaar) 25 mg PO DAILY [facility] Last Admin: 06/02/17 08:37 Dose: 25 mg Ondansetron HCl (Zofran Inj) 4 mg IVP Q6 PRN PRN Reason: Nausea/Vomiting Timolol Maleate (Timoptic 0.5% Ophth Soln) 1 drop OU QAM [facility] Last Admin: 06/02/17 08:35 Dose: 1 drop Tramadol HCl (Ultram) 50 mg PO Q6 PRN PRN Reason: Pain, moderate (4-7) Last Admin: 06/01/17 18:00 Dose: 50 mg Results - Vital Signs Recent Vital Signs: Last Vital Signs Temp 98.3 F 06/02/17 05:05 Pulse 78 06/02/17 08:37 Resp 18 06/02/17 05:05 BP 138/75 06/02/17 08:37 Pulse Ox 94 L 06/02/17 05:05 - Labs Result Diagrams: 06/02/17 04:20 05/31/17 07:39 Labs: Laboratory Results - last 24 hr 06/02/17 04:20 WBC 5.0 RBC 4.11 Hgb 12.4 Hct 37.0 MCV 90.0 MCH 30.0 MCHC 33.4 RDW 13.8 Plt Count 272 Assessment & Plan (1) DVT (deep venous thrombosis) Status: Inactive Priority: Medium (2) Fall Status: Acute Priority: High (3) Fracture of thumb, left, closed Status: Acute Priority: High (4) Head injury Status: Acute Priority: High - Date & Time Date: 06/02/17 Time: 11:22
--- NOTE | 2017-06-02 11:55 | RAD ---
PROCEDURE: Ra lumbar spine dated 06/02/2017 HISTORY: Fall. COMPARISON: Comparison made with CT scan of the lumbar spine dated 07/18/2009. FINDINGS: BONES: No acute compression fractures no retropulsed fragments. Chronic appearing anterior stature loss of the L2, L3 and L4 segments. . . Straightening of the normal lumbar lordosis. DISC SPACES: Multilevel degenerative spondylosis. Changes include varying degrees of disc space narrowing, endplate eburnation with anterolateral and posterior osteophyte formation. OTHER FINDINGS: None. IMPRESSION: Moderate to fairly significant multilevel degenerative spondylosis. Minor chronic anterior stature loss of the L2, L3 and L4 segments.
--- NOTE | 2017-06-02 12:46 | RAD ---
PROCEDURE: Radiographs of the pelvis and bilateral hips HISTORY: fall COMPARISON: None. FINDINGS: BONES: Pelvis: Unremarkable. Right hip:Satisfactory position alignment of components right WILFREDO. No evidence of hardware loosening. Left hip:Unremarkable. JOINTS: Right hip: Unremarkable. Left hip: Moderate degenerative change. Sacroiliac Joints: Unremarkable. Pubic symphysis: Unremarkable. SOFT TISSUES: Normal. OTHER FINDINGS: None. IMPRESSION: No acute findings related to/accounting for the clinical presentation.
--- NOTE | 2017-06-02 13:36 | CP.PCM.CON ---
History of Present Illness - History of Present Illness History of Present Illness: Orthopedic consultation Dr. Gregory 86F complains of left thumb pain after fall on Friday. She says the bone was sticking out the skin and the person at the scene put it back in place. She says the splint is uncomfortable. At this time, she denies pain in other extremities. Denies CP/SOB/dizziness/fever/chills/numbness/tingling/n/v. Review of Systems - Review of Systems All systems: reviewed and no additional remarkable complaints except - Constitutional Constitutional: As Per HPI - Cardiovascular Cardiovascular: As Per HPI - Respiratory Respiratory: As Per HPI - Gastrointestinal Gastrointestinal: As Per HPI - Musculoskeletal Musculoskeletal: As Per HPI - Integumentary Integumentary: As Per HPI - Neurological Neurological: As Per HPI Past Patient History - Past Medical History & Family History Past Medical History?: Yes Past Family History: Reviewed and not pertinent - Past Social History Smoking Status: Former Smoker - CARDIAC Hx Hypertension: Yes - PULMONARY Hx Respiratory Disorders: No - NEUROLOGICAL HX Cerebrovascular Accident: Yes - HEENT Hx HEENT Problems: No - RENAL Hx Chronic Kidney Disease: No - ENDOCRINE/METABOLIC Hx Endocrine Disorders: No - HEMATOLOGICAL/ONCOLOGICAL Hx AIDS: No Hx Anemia: Yes (B12 deficiency) Hx Chemotherapy: Yes Hx Human Immunodeficiency Virus (HIV): No Hx Leukemia: Yes - INTEGUMENTARY Hx Dermatological Problems: No - MUSCULOSKELETAL/RHEUMATOLOGICAL Hx Arthritis: Yes (left shoulder pain) Hx Falls: Yes Hx Fractures: Yes (R hip) Hx Unsteady Gait: Yes - GASTROINTESTINAL Hx Gastrointestinal Disorders: No - GENITOURINARY/GYNECOLOGICAL Hx Genitourinary Disorders: No - PSYCHIATRIC Hx Anxiety: Yes Hx Substance Use: No - SURGICAL HISTORY Hx Surgeries: Yes Hx Breast Biopsy: Yes Hx Orthopedic Surgery: Yes (RT HIP REPLACEMENT, 1988) Other/Comment: LEFT BREAST BIOPSY WITH CLIP 12 YEARS AGO - ANESTHESIA Hx Anesthesia: Yes Hx Anesthesia Reactions: No Hx Malignant Hyperthermia: No Has any member of the family had a problem w/ anesthesia?: No Meds Home Medications: Home Medication List Medication Instructions Recorded Confirmed Type Acetaminophen [Tylenol 325mg tab] 650 mg PO Q6 PRN tab 06/02/17 Rx Famotidine [Pepcid] 20 mg PO DAILY #1 tab 06/02/17 Rx traMADol [Ultram] 50 mg PO Q6 PRN tab 06/02/17 Rx Allergies/Adverse Reactions: Allergies Allergy/AdvReac Type Severity Reaction Status Date / Time amlodipine besylate Allergy SWELLING Verified 05/30/17 15:17 [From Norvasc] aspirin [From Aggrenox] Allergy SWELLING Verified 05/30/17 15:17 ciprofloxacin [From Cipro] Allergy RASH Verified 05/30/17 15:17 ciprofloxacin HCl Allergy RASH Verified 05/30/17 15:17 [From Cipro] codeine Allergy RASH Verified 05/30/17 15:17 dipyridamole [From Aggrenox] Allergy SWELLING Verified 05/30/17 15:17 gabapentin [From Neurontin] Allergy SWELLING Verified 05/30/17 15:17 lisinopril Allergy RASH Verified 05/30/17 15:17 metoprolol tartrate Allergy SWELLING Verified 05/30/17 15:17 [From Lopressor] metronidazole [From Flagyl] Allergy RASH Verified 05/30/17 15:17 Penicillins Allergy RASH Verified 08/26/16 11:35 tetanus toxoid, adsorbed Allergy RASH Verified 08/26/16 11:35 - Medications Medications: Current Medications Aspirin (Ecotrin) 325 mg PO DAILY [facility] Last Admin: 06/02/17 08:37 Dose: 325 mg Famotidine (Pepcid) 20 mg PO BID [facility] Last Admin: 06/02/17 08:35 Dose: 20 mg Clindamycin Phosphate 600 mg/ (Sodium Chloride) 54 mls @ 54 mls/hr IVPB Q8H [facility] PRN Reason: Protocol Losartan Potassium (Cozaar) 25 mg PO DAILY [facility] Last Admin: 06/02/17 08:37 Dose: 25 mg Ondansetron HCl (Zofran Inj) 4 mg IVP Q6 PRN PRN Reason: Nausea/Vomiting Timolol Maleate (Timoptic 0.5% Ophth Soln) 1 drop OU QAM [facility] Last Admin: 06/02/17 08:35 Dose: 1 drop Tramadol HCl (Ultram) 50 mg PO Q6 PRN PRN Reason: Pain, moderate (4-7) Last Admin: 06/01/17 18:00 Dose: 50 mg Physical Exam - Constitutional Appears: Well, No Acute Distress - Head Exam Additional comments: ecchymosis to face - Respiratory Exam Respiratory Exam: NORMAL BREATHING PATTERN - Extremities Exam Additional comments: thumb: deformed, angulated laterally from proximal phalanx. Open wound copiously irrigated with NS bulb syringe. wound was not sutured in ER. + ecchymosis, no erythema to suggest infection. sensation intact to tip. +cap refill, No active bleeding - Neurological Exam Neurological exam: Alert, Oriented x3 - Psychiatric Exam Psychiatric exam: Normal Affect, Normal Mood - Skin Additional comments: to ulnar side of thumb 2 1 cm lacerations, deep no erythema, no active drainage , ecchymosis to finger Results - Vital Signs Recent Vital Signs: Last Vital Signs Temp 98.3 F 06/02/17 05:05 Pulse 67 06/02/17 09:00 Resp 18 06/02/17 05:05 BP 138/75 06/02/17 08:37 Pulse Ox 94 L 06/02/17 05:05 - Labs Result Diagrams: 06/02/17 04:20 05/31/17 07:39 Labs: Laboratory Results - last 24 hr 06/02/17 04:20 WBC 5.0 RBC 4.11 Hgb 12.4 Hct 37.0 MCV 90.0 MCH 30.0 MCHC 33.4 RDW 13.8 Plt Count 272 Assessment & Plan (1) Open fracture of proximal phalanx of left thumb Assessment and Plan: bedside I&D this is open fracture started on clinda as patient PCN allergy xeroform, telfa, kerlex, thumb spica splint applied and fracture reduced d/w Dr. Gregory, agrees with above, cont IV abx and monitor wound d/w Dr. Sequeira Status: Acute (2) Open fracture of distal phalanx of left thumb Status: Acute (3) Bone infarct of distal femur Assessment and Plan: femur xrays MRI femur Status: Chronic Radiology Interpretation - Radiology Interpretation #2 Interpretation: atient Name / ID : KORIN PORTER / [id number] Exam Date : 06/02/2017 09:06:38 ( Approved ) Study Comment : Sex / Age : F / 86Y Creator : Elvin Prince MD Dictator : Elvin Prince MD Heel Brusher : Roof Designer : Elvin Prince MD Approver2 : Report Date : 06/02/2017 12:40:27 My Comment : PROCEDURE: Radiographs of the pelvis and bilateral hips HISTORY: fall COMPARISON: None. FINDINGS: BONES: Pelvis: Unremarkable. Right hip:Satisfactory position alignment of components right WILFREDO. No evidence of hardware loosening. Left hip:Unremarkable. JOINTS: Right hip: Unremarkable. Left hip: Moderate degenerative change. Sacroiliac Joints: Unremarkable. Pubic symphysis: Unremarkable. SOFT TISSUES: Normal. OTHER FINDINGS: None. IMPRESSION: No acute findings related to/accounting for the clinical presentation. atient Name / ID : KORIN PORTER / [id number] Exam Date : 05/30/2017 17:05:22 ( Approved ) Study Comment : Sex / Age : F / 86Y Creator : nighat schofield Dictator : Heel Brusher : Roof Designer : Samuel Yates MD Approver2 : Report Date : 05/30/2017 17:26:35 My Comment : PROCEDURE: Right knee dated 05/30/2017. HISTORY: Knee pain. COMPARISON: Correlation made with radiographs of the left knee dated 05/25/2013. FINDINGS: BONES: No evidence of acute displaced fracture nor dislocation. The osseous structures intact. Speckled granular sclerotic changes are seen within the distal right femoral shaft that may represent bone infarct changes. . Follow-up MRI could be performed for further evaluation if necessary and to exclude other pathology enchondroma or less likely chondrosarcoma. JOINTS: Joint spaces relatively preserved. JOINT EFFUSION: None. OTHER FINDINGS: None. IMPRESSION: No acute acute displaced fracture nor dislocation. Speckled granular sclerotic changes are seen within the distal right femoral shaft that may represent bone infarct changes. . Follow-up MRI could be performed for further evaluation if necessary and to exclude other pathology enchondroma or less likely chondrosarcoma. Note this report was placed in [facility] review folder for followup Patient Name / ID : KORIN Aragon [id number] Exam Date : 05/30/2017 17:05:22 ( Approved ) Study Comment : Sex / Age : F / 86Y Creator : nighat schofield Dictator : Heel Brusher : Roof Designer : Samuel Yates MD Approver2 : Report Date : 05/30/2017 17:26:35 My Comment : PROCEDURE: Left Foot Radiographs. HISTORY: injury COMPARISON: Comparison made with left foot radiographs 04/26/2014. FINDINGS: BONES: Norm no evidence of acute displaced fracture nor dislocation. Osseous structures appear intact. No cortical destructive changes. Made of a small bony protuberance arising from the lateral distal margin of the proximal phalanx 4th toe which could represent tiny osteophyte. . Small posterior calcaneal enthesophyte formation. JOINTS: . Mild hallux valgus deformity with slight degenerative changes 1st MTP joint. . There is also slight degenerative changes of the sesamoid bones 1st digit. Hammertoe deformities of the 2nd 3rd and 4th digits SOFT TISSUES: Normal. OTHER FINDINGS: None. IMPRESSION: No definitive evidence of acute displaced fracture nor dislocation. Consider repeat radiographs 7-10 days if symptoms persist or occult fracture suspected clinically deemed. Alternately, MRI could be obtained if necessary. Mild hallux valgus deformity with mild DJD 1st MTP joint. Mild hammertoe deformities 2nd 3rd and 4th digits. - Radiology Interpretation #3 Interpretation: Patient Name / ID : KORIN Aragon [id number] Exam Date : 05/30/2017 17:05:22 ( Approved ) Study Comment : Sex / Age : F / 86Y Creator : nighat schofield Dictator : Heel Brusher : Roof Designer : Samuel Yates MD Approver2 : Report Date : 05/30/2017 17:26:35 My Comment : PROCEDURE: Left hand dated 05/30/2017. HISTORY: Thumb injury. COMPARISON: None. FINDINGS: BONES: There is a comminuted intra-articular fracture of the proximal 1/3 proximal phalanx left thumb. 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 . Mild degenerative osteoarthritis DIP and to a lesser degree PIP joints and intercarpal joints. . SOFT TISSUES: Normal. OTHER FINDINGS: None. IMPRESSION: Comminuted intra-articular fractures of the proximal and distal phalanges of the left thumb. Note that this report was placed in PA review folder for followup. . Degenerative osteoarthritis as detailed above. .
[2017-06-02] MEDS ORDERED: Clindamycin 600mg/50ml NS 600 MG/50 ML BAG IVPB SCH (13:45)
--- NOTE | 2017-06-02 14:46 | CP.PCM.DIS ---
<Parveen Fajardo - Last Filed: 06/02/17 15:17> Provider - Provider Date of Admission: 05/30/17 19:16 Attending physician: Daya Young DO Consults: Orthopedics: Delon Malin Supervisor Picking Crew: Samuel Chowdhury Time Spent in preparation of Discharge (in minutes): 37 Diagnosis - Discharge Diagnosis (1) Fall Status: Acute Comment: - Pt not able to perform ADL safely, with bilateral leg weakness, at high risk of fall, in need for strenght physical therapy. - Pt will be discharged to TCU for completion of rehabilitation, physical therapy and IV antibiotics administration. (2) Unstable gait Status: Acute Comment: Pt will be discharged to TCU for completion of rehabilitation, physical therapy and IV antibiotics administration. (3) Fracture of thumb, left, open Status: Acute Comment: -Open fracture, evaluated by orthopedic surgical team. Will administer IV Clindamycin while completing rehabiliation in TCU. -F/U orthopedics management decisions. (4) Head injury, acute Status: Acute Comment: CT of head with NO intracranial hemorrhage. Pt not able to perform ADL safely, with bilateral leg weakness, at high risk of fall, in need for strenght physical therapy. - Continue wound care of facial hematoma and ecchymosis, c/w fall precautions. (5) Perioral numbness Status: Acute Comment: -Most likely secondary to anxious state. -F/u neurologist Dr Harper's evaluation and recommendations. (6) Hypertension Status: Acute Comment: -C/w home medications Losartan. Monitor BP. Hospital Course - Lab Results Lab Results: Micro Results 05/30/17 06:30 Urine Urine Culture - Final No Growth (<1,000 CFU/ML) Most Recent Lab Values WBC 5.0 K/uL (4.8-10.8) 06/02/17 04:20 RBC 4.11 Mil/uL (3.80-5.20) 06/02/17 04:20 Hgb 12.4 g/dL (12.0-16.0) 06/02/17 04:20 Hct 37.0 % (34.0-47.0) 06/02/17 04:20 MCV 90.0 fl (81.0-99.0) 06/02/17 04:20 MCH 30.0 pg (27.0-31.0) 06/02/17 04:20 MCHC 33.4 g/dL (33.0-37.0) 06/02/17 04:20 RDW 13.8 % (11.5-14.5) 06/02/17 04:20 Plt Count 272 K/uL (130-400) 06/02/17 04:20 MPV 8.9 fl (7.2-11.7) 05/30/17 17:05 Neut % (Auto) 76.5 % (50.0-75.0) H 05/30/17 17:05 Lymph % (Auto) 13.7 % (20.0-40.0) L 05/30/17 17:05 [place] % (Auto) 7.9 % (0.0-10.0) 05/30/17 17:05 Eos % (Auto) 0.9 % (0.0-4.0) 05/30/17 17:05 Baso % (Auto) 1.0 % (0.0-2.0) 05/30/17 17:05 Neut # (Auto) 5.7 K/uL (1.8-7.0) 05/30/17 17:05 Lymph # (Auto) 1.0 K/uL (1.0-4.3) 05/30/17 17:05 [place] # (Auto) 0.6 K/uL (0.0-0.8) 05/30/17 17:05 Eos # (Auto) 0.1 K/uL (0.0-0.7) 05/30/17 17:05 Baso # (Auto) 0.1 K/uL (0.0-0.2) 05/30/17 17:05 PT 11.8 Seconds (9.8-13.1) 05/30/17 17:57 INR 1.1 (0.9-1.2) 05/30/17 17:57 APTT 29.9 Seconds (25.6-37.1) 05/30/17 17:57 Sodium 139 mmol/l (132-148) 05/31/17 07:39 Potassium 3.7 MMOL/L (3.6-5.0) 05/31/17 07:39 Chloride 101 mmol/L (98-107) 02/10/18 07:39 Carbon Dioxide 28 mmol/L (22-30) 05/31/17 07:39 Anion Gap 14 (10-20) 05/31/17 07:39 BUN 13 mg/dl (7-17) 05/31/17 07:39 Creatinine 0.6 mg/dl (0.7-1.2) L 05/31/17 07:39 Est GFR ( Amer) > 60 05/31/17 07:39 Est GFR (Non-Af Amer) > 60 05/31/17 07:39 Random Glucose 98 mg/dL (65-105) 05/31/17 07:39 Calcium 9.3 mg/dL (8.4-10.2) 05/31/17 07:39 Troponin I < 0.0120 ng/mL (0.00-0.120) 05/30/17 17:05 Urine Color Yellow (YELLOW) 05/30/17 23:09 Urine Clarity Slighty-cloudy (Clear) 05/30/17 23:09 Urine pH 5.0 (5.0-8.0) 05/30/17 23:09 Ur Specific [place] 1.028 (1.003-1.030) 05/30/17 23:09 Urine Protein Negative mg/dL (NEGATIVE) 05/30/17 23:09 Urine Glucose (UA) Neg mg/dL (Normal) 05/30/17 23:09 Urine Ketones Trace mg/dL (NEGATIVE) 05/30/17 23:09 Urine Blood Negative (NEGATIVE) 05/30/17 23:09 Urine Nitrate Negative (NEGATIVE) 05/30/17 23:09 Urine Bilirubin Negative (NEGATIVE) 05/30/17 23:09 Urine Urobilinogen 0.2-1.0 mg/dL (0.2-1.0) 05/30/17 23:09 Ur Leukocyte Esterase Mod Nain/uL (Negative) 05/30/17 23:09 Urine RBC (Auto) 8 /hpf (0-3) H 05/30/17 23:09 Urine Microscopic WBC 11 /hpf (0-5) H 05/30/17 23:09 Ur Squamous Epith Cells 1 /hpf (0-5) 05/30/17 23:09 - Hospital Course Hospital Course: 86 y/o F with a PMHx of CVA, TIA, Seizure and HTN admitted after a mechanical fall after losing her balance. Pt presented with severe bilateral leg weakness, humble-oral numbness, left facial hematoma and ecchymosis on examination. L thumb fracture was discovered on X-ray. - CT head showed NO intra-cranial hemorrhage. - CXR unremarkable. - US Doppler showed NO evidence of DVT and incidental finding of 1.8 cm inguinal lymph node. - Lumbar spine X ray showed moderate to fairly significant multilevel degenerative spondylosis. - Bilateral Hip X ray: No acute findings. Pt was stable, with NO acute events overnight. Evaluated by orthopedics, open fracture of L thumb was diagnosed, initiated on IV Clindamycin. Pt will be discharged to [facility] for rehabilitation and completion of antibiotics administration. - Date & Time of H&P Date of H&P: 05/30/17 Time of H&P: 19:23 Discharge Exam - Head Exam Head Exam: NORMOCEPHALIC. absent: ATRAUMATIC - ENT Exam ENT Exam: Mucous Membranes Dry - Neck Exam Neck exam: Full Rom - Respiratory Exam Respiratory Exam: NORMAL BREATHING PATTERN, UNREMARKABLE - Cardiovascular Exam Cardiovascular Exam: REGULAR RHYTHM, +S1, +S2 - GI/Abdominal Exam GI & Abdominal Exam: Normal Bowel Sounds, Unremarkable - Extremities Exam Extremities exam: tenderness - Neurological Exam Neurological exam: Alert, Oriented x3 Discharge Plan - Discharge Medications Prescriptions: Famotidine [Pepcid] 20 mg PO DAILY #1 tab - Follow Up Plan Condition: FAIR Disposition: TRANSF TO SNF Additional Instructions: d/c to TCU tonight Referrals: Melvin Mascorro MD [Staff Provider] - Delon Gregory MD [Medical Doctor] - <Coby Sequeira - Last Filed: 06/02/17 15:19> Provider - Provider Date of Admission: 05/30/17 19:16 Attending physician: Daya Young DO Hospital Course - Lab Results Lab Results: Micro Results 05/30/17 06:30 Urine Urine Culture - Final No Growth (<1,000 CFU/ML) Most Recent Lab Values WBC 5.0 K/uL (4.8-10.8) 06/02/17 04:20 RBC 4.11 Mil/uL (3.80-5.20) 06/02/17 04:20 Hgb 12.4 g/dL (12.0-16.0) 06/02/17 04:20 Hct 37.0 % (34.0-47.0) 06/02/17 04:20 MCV 90.0 fl (81.0-99.0) 06/02/17 04:20 MCH 30.0 pg (27.0-31.0) 06/02/17 04:20 MCHC 33.4 g/dL (33.0-37.0) 06/02/17 04:20 RDW 13.8 % (11.5-14.5) 06/02/17 04:20 Plt Count 272 K/uL (130-400) 06/02/17 04:20 MPV 8.9 fl (7.2-11.7) 05/30/17 17:05 Neut % (Auto) 76.5 % (50.0-75.0) H 05/30/17 17:05 Lymph % (Auto) 13.7 % (20.0-40.0) L 05/30/17 17:05 [place] % (Auto) 7.9 % (0.0-10.0) 05/30/17 17:05 Eos % (Auto) 0.9 % (0.0-4.0) 05/30/17 17:05 Baso % (Auto) 1.0 % (0.0-2.0) 05/30/17 17:05 Neut # (Auto) 5.7 K/uL (1.8-7.0) 05/30/17 17:05 Lymph # (Auto) 1.0 K/uL (1.0-4.3) 05/30/17 17:05 [place] # (Auto) 0.6 K/uL (0.0-0.8) 05/30/17 17:05 Eos # (Auto) 0.1 K/uL (0.0-0.7) 05/30/17 17:05 Baso # (Auto) 0.1 K/uL (0.0-0.2) 05/30/17 17:05 PT 11.8 Seconds (9.8-13.1) 05/30/17 17:57 INR 1.1 (0.9-1.2) 05/30/17 17:57 APTT 29.9 Seconds (25.6-37.1) 05/30/17 17:57 Sodium 139 mmol/l (132-148) 05/31/17 07:39 Potassium 3.7 MMOL/L (3.6-5.0) 05/31/17 07:39 Chloride 101 mmol/L (98-107) 05/31/17 07:39 Carbon Dioxide 28 mmol/L (22-30) 05/31/17 07:39 Anion Gap 14 (10-20) 05/31/17 07:39 BUN 13 mg/dl (7-17) 05/31/17 07:39 Creatinine 0.6 mg/dl (0.7-1.2) L 05/31/17 07:39 Est GFR ( Amer) > 60 05/31/17 07:39 Est GFR (Non-Af Amer) > 60 05/31/17 07:39 Random Glucose 98 mg/dL (65-105) 05/31/17 07:39 Calcium 9.3 mg/dL (8.4-10.2) 05/31/17 07:39 Troponin I < 0.0120 ng/mL (0.00-0.120) 05/30/17 17:05 Urine Color Yellow (YELLOW) 05/30/17 23:09 Urine Clarity Slighty-cloudy (Clear) 05/30/17 23:09 Urine pH 5.0 (5.0-8.0) 05/30/17 23:09 Ur Specific [place] 1.028 (1.003-1.030) 05/30/17 23:09 Urine Protein Negative mg/dL (NEGATIVE) 05/30/17 23:09 Urine Glucose (UA) Neg mg/dL (Normal) 05/30/17 23:09 Urine Ketones Trace mg/dL (NEGATIVE) 05/30/17 23:09 Urine Blood Negative (NEGATIVE) 05/30/17 23:09 Urine Nitrate Negative (NEGATIVE) 05/30/17 23:09 Urine Bilirubin Negative (NEGATIVE) 05/30/17 23:09 Urine Urobilinogen 0.2-1.0 mg/dL (0.2-1.0) 05/30/17 23:09 Ur Leukocyte Esterase Mod Nain/uL (Negative) 05/30/17 23:09 Urine RBC (Auto) 8 /hpf (0-3) H 05/30/17 23:09 Urine Microscopic WBC 11 /hpf (0-5) H 05/30/17 23:09 Ur Squamous Epith Cells 1 /hpf (0-5) 05/30/17 23:09 Attending/Attestation - Attestation I have personally seen and examined this patient.: Yes I have fully participated in the care of the patient.: Yes I have reviewed all pertinent clinical information, including history, physical exam and plan: Yes
[2017-06-02 16:05] VITALS: RESP 20; TEMP 98.1
[2017-06-02] MEDS ORDERED: Magnesium Hydroxide Susp 30 ml UD PO STA (18:03)
[2017-06-02 19:27] VITALS: BP 116/58; PULSE 75; O2SAT 95
--- NOTE | 2017-06-03 08:32 | CON ---
DATE: 06/02/2017 CHIEF COMPLAINT: Status post fall. HISTORY OF PRESENT ILLNESS: This is an 86-year-old woman who is known to me with history of hypertension, history of B12 deficiency, former smoker, history of anxiety disorder, history of right hip replacement, history of arthritis, who came to the hospital after sustaining a mechanical fall after losing her balance. She has generalized weakness, has baseline neuropathy on examination, as well as from my evaluation in outpatient. She uses aspirin for stroke prevention. Otherwise, she sustained a left thumb fracture and currently casted for PT/OT for deconditioned state and generalized weakness. 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 PAST SURGICAL HISTORY: History of right total hip replacement and biopsy of left breast. ALLERGIES: AMLODIPINE, CIPRO, CODEINE, LISINOPRIL, FLAGYL, METOPROLOL, TETANUS/PENICILLIN TOXOID. SOCIAL HISTORY: Former smoker. No illicit drug use or ETOH abuse. REVIEW OF SYSTEMS: A 14-point review of systems negative except in the HPI. PHYSICAL EXAMINATION: GENERAL: The patient is sitting up in bed in no acute distress. VITAL SIGNS: Temperature 98.3, pulse rate 78, blood pressure 138/75, respiratory rate 18, and oxygen saturation 95% on room air. HEENT: Atraumatic and normocephalic. PERRLA. Extraocular muscles are intact. NECK: Supple. No JVD. No adenopathy noted. LUNGS: Clear to auscultation. No adventitious sounds. HEART: S1, S2. Normal rate and rhythm. No murmurs, rubs, or gallops. ABDOMEN: Soft, nontender, and nondistended. Bowel sounds present. EXTREMITIES: No clubbing. No cyanosis. Peripheral pulses are 2+ bilaterally. NEUROLOGIC: The patient is alert and oriented to person, place, month, and year. Speech is fluent without any errors. Cranial nerves II through XII are intact. Motor: Moves all extremities equally. Toes are downgoing bilaterally. Sensory: Decreased light touch and pinprick up to the calves bilaterally, decreased vibration of the toes. DTRs are 2+ throughout except for 1 at both knees and absent at the ankles. Coordination: [id number] intact. Gait is slightly wide based. Left thumb is in a cast due to left thumb fracture from a mechanical fall. LABORATORY DATA: Sodium 139, potassium 3.7, chloride 101, carbon dioxide 24, BUN 13, creatinine 0.6, random glucose 98. ASSESSMENT AND PLAN: 1. This is an 86-year-old woman with history of hypertension, history of generalized weakness, and a baseline history of neuropathy, anemia, B12 deficiency, history of right total hip replacement, who presents status post mechanical fall after losing her balance resulted in left thumb fracture and ecchymosis to her right frontal area. CAT scan has shown no acute intracranial abnormality. Currently, she is mildly deconditioned. We will recommend subacute rehab, a TCU with physical and occupational therapy and gait and balance exercises. 2. Advised adequate hydration avoid sudden movements. 3. Continue with aspirin 325 mg p.o. daily for and continue . Thank you for this consult. Lewis Harper MD
--- NOTE | 2017-06-03 10:32 | RAD ---
PROCEDURE: Right Femur Radiographs. HISTORY: ? bone infarct COMPARISON: Right femur radiographs dated 07/17/2009. TECHNIQUE: AP and Lateral Radiographs of the right femur. FINDINGS: FEMUR: Prior right hip arthroplasty. No periprosthetic lucency to suggest component loosening or fracture. Stable patchy sclerotic densities in the distal femoral diaphysis. SOFT TISSUES: Normal. OTHER FINDINGS: None. IMPRESSION: Prior right hip arthroplasty. No acute fracture. 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
== END 2017-06-02 21:30 | DRG 92 ==
LOC: H.ER 15:13 → H.ERHOLD 19:16 → H.TEL 05-31 20:42
PROVIDERS: ADMIT Student in an Organized Health Care Education/Training Program; ATTEND Student in an Organized Health Care Education/Training Program
PROC: 0PSSXZZ Reposition Left Thumb Phalanx, External Approach (ICD-10-PCS; principal; 2017-06-02)
DX: R26.89 Other abnormalities of gait and mobility (principal); S62.512B Displaced fracture of proximal phalanx of left thumb, initial encounter for open fracture; D51.9 Vitamin B12 deficiency anemia, unspecified; E11.9 Type 2 diabetes mellitus without complications; S62.522B Displaced fracture of distal phalanx of left thumb, initial encounter for open fracture; S00.83XA Contusion of other part of head, initial encounter; S93.692A Other sprain of left foot, initial encounter; M19.042 Primary osteoarthritis, left hand; M20.42 Other hammer toe(s) (acquired), left foot; I10 Essential (primary) hypertension; R53.1 Weakness; F41.9 Anxiety disorder, unspecified; W01.0XXA Fall on same level from slipping, tripping and stumbling without subsequent striking against object, initial encounter; Z91.81 History of falling; Z96.641 Presence of right artificial hip joint; Z88.0 Allergy status to penicillin; Z88.6 Allergy status to analgesic agent; Z88.1 Allergy status to other antibiotic agents; Z86.73 Personal history of transient ischemic attack (TIA), and cerebral infarction without residual deficits; Z86.718 Personal history of other venous thrombosis and embolism; Z85.6 Personal history of leukemia; Z87.891 Personal history of nicotine dependence; Z92.21 Personal history of antineoplastic chemotherapy; Z79.82 Long term (current) use of aspirin; Y92.9 Unspecified place or not applicable

== ENCOUNTER 2017-06-02 22:18 | Inpatient (IN) | payer OTHER, MEDICARE ==
[2017-06-02 22:40] VITALS: BMI 27.2
[2017-06-02] MEDS ORDERED: Clindamycin in NS 300 MG/50 ML BAG IVPB SCH (23:30)
[2017-06-03 02:00] VITALS: RESP 20
[2017-06-03] MEDS: Clindamycin 600mg/50ml NS 600 MG/50 ML BAG IVPB SCH ×3 (05:39→21:39)
[2017-06-03] MEDS: Cholecalciferol 1,000 INTLU TAB PO SCH (09:10)
[2017-06-03] MEDS: Aspirin 325 mg EC Tablets PO SCH (09:10)
--- NOTE | 2017-06-03 12:01 | CP.PCM.HP ---
History of Present Illness - History of Present Illness History of Present Illness: 86 y/o F with a PMHx of multiple CVA episodes, TIA and HTN was admitted to TCU for IV antibiotic administration, L thumb open fracture and rehabilitation after a mechanical fall. Pt reports feeling well, body weakness is improving, tolerating PO, afebrile. Pt is left handed, currently under physical therapy, receiving IV Clindamycin. Pt c/o an episode of diarrhea last night, described as paste-like and brown in color. Sayda-oral numbness not present at this moment. Pt denies headache, dizziness, CP, SOB, abdominal pain, nausea, rash or paresthesia. PMD: Dr Vargas Allergies: Amlodipine, Cipro; Codeine; Lisinopril; Metoprolol; Flagyl; PCN; Tetanus Toxoid Medications: Losartan, Folic Acid, Tumeric and Glucosamine. PMHx: B-12 deficiency anemia, DVT, HTN, CVA, TIA, Leukemia treated with chemotherapy in 1959, Low threshold for anesthesia (as per pt) PSHx: R hip replacement, L breast biopsy. FHx: Mother at 94y/o with CVA, father with Brain cancer. 1 son with prostate cancer. SHx: Former smoker, No EtOH or recreationa drug use. 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 Hospitalization course: Pt presented to ER on 05/30 after falling, pt admitted to Telemetry and evaluated for stroke and possible multiple fractures: - CBC and BMP were unremarkable. - CXR with NO active disease. - Head CT with NO acute intracranial abnormalities. - CT Cervical spine with NO acute fracture, unremarkable. - XR of L hand showed comminuted intra-articular fractures of proximal and distal phalanges of L thumb. - XR of L foot showed NO definitive evidence of acute displaced fracture nor dislocation. - XR of b/l hip and pelvis showed NO acute findings. - XR R knee with NO acute displaced fracture nor dislocation. (speckled granular sclerotic chnages within the distal R femoral shaft poss bone infarct changes. MRI for poss enchondroma vs chondrosarcoma.) - XR lumbar spine showed moderate to fairly significant multi-level degenerative spondylosis. - US doppler of b/l extremities with NO evidence of DVT and incidental L inguinal node. - XR R femur showed patchy sclerotic densities in distal femoral diaphysis that may be bone infarct. Pt transfer to TCU yesterday 06/02/17. Present on Admission - Present on Admission Any Indicators Present on Admission: No Review of Systems - Constitutional Constitutional: Frequent Falls. absent: Chills, Fever, Headache - EENT Eyes: absent: Blurred Vision, Photophobia Nose/Mouth/Throat: absent: Nasal Congestion - Cardiovascular Cardiovascular: absent: Chest Pain, Chest Pain at Rest, Dyspnea on Exertion - Respiratory Respiratory: absent: Cough, Dyspnea - Gastrointestinal Gastrointestinal: Diarrhea. absent: Abdominal Pain, Coffee Ground Emesis, Hematochezia, Nausea, Vomiting - Genitourinary Genitourinary: absent: Difficulty Urinating, Hematuria - Neurological Neurological: absent: Abnormal Hearing, Burning Sensations - Psychiatric Psychiatric: absent: Confusion, Depression, Homicidal Ideation, Hopelessness Past Patient History - Past Medical History & Family History Past Medical History?: Yes - Past Social History Smoking Status: Former Smoker - CARDIAC Hx Hypertension: Yes - PULMONARY Hx Respiratory Disorders: No - NEUROLOGICAL HX Cerebrovascular Accident: Yes - HEENT Hx HEENT Problems: No - RENAL Hx Chronic Kidney Disease: No - ENDOCRINE/METABOLIC Hx Endocrine Disorders: No - HEMATOLOGICAL/ONCOLOGICAL Hx AIDS: No Hx Anemia: Yes (B12 deficiency) Hx Blood Transfusions: Yes Hx Blood Transfusion Reaction: Yes Hx Chemotherapy: Yes Hx Human Immunodeficiency Virus (HIV): No Hx Leukemia: Yes (1958) - INTEGUMENTARY Hx Dermatological Problems: No - MUSCULOSKELETAL/RHEUMATOLOGICAL Hx Arthritis: Yes Hx Falls: Yes Hx Fractures: Yes (l thumb) Hx Unsteady Gait: Yes - GASTROINTESTINAL Hx Gastrointestinal Disorders: No - GENITOURINARY/GYNECOLOGICAL Hx Genitourinary Disorders: No - PSYCHIATRIC Hx Anxiety: Yes Hx Substance Use: No - SURGICAL HISTORY Hx Surgeries: Yes Hx Breast Biopsy: Yes Hx Orthopedic Surgery: Yes (RT HIP REPLACEMENT, 1988) Other/Comment: LEFT BREAST BIOPSY WITH CLIP 12 YEARS AGO - ANESTHESIA Hx Anesthesia: Yes Hx Anesthesia Reactions: No Hx Malignant Hyperthermia: No Meds Allergies/Adverse Reactions: Allergies Allergy/AdvReac Type Severity Reaction Status Date / Time amlodipine besylate Allergy SWELLING Verified 05/30/17 15:17 [From Norvasc] aspirin [From Aggrenox] Allergy SWELLING Verified 02/09/18 15:17 ciprofloxacin [From Cipro] Allergy RASH Verified 05/30/17 15:17 ciprofloxacin HCl Allergy RASH Verified 05/30/17 15:17 [From Cipro] codeine Allergy RASH Verified 05/30/17 15:17 dipyridamole [From Aggrenox] Allergy SWELLING Verified 05/30/17 15:17 gabapentin [From Neurontin] Allergy SWELLING Verified 05/30/17 15:17 lisinopril Allergy RASH Verified 05/30/17 15:17 metoprolol tartrate Allergy SWELLING Verified 05/30/17 15:17 [From Lopressor] metronidazole [From Flagyl] Allergy RASH Verified 05/30/17 15:17 Penicillins Allergy RASH Verified 08/26/16 11:35 tetanus toxoid, adsorbed Allergy RASH Verified 08/26/16 11:35 Physical Exam - Constitutional Appears: Well, No Acute Distress - Head Exam Additional comments: Presence of hematoma of R frontal area, ecchymosis covering R maxillary area extending from nose to periauricular area. - Eye Exam Eye Exam: EOMI, Normal appearance - ENT Exam ENT Exam: Mucous Membranes Moist - Neck Exam Neck exam: Positive for: Full Rom. Negative for: Meningismus - Respiratory Exam Respiratory Exam: Clear to Auscultation Bilateral, NORMAL BREATHING PATTERN - Cardiovascular Exam Cardiovascular Exam: REGULAR RHYTHM, +S1, +S2 - GI/Abdominal Exam GI & Abdominal Exam: Normal Bowel Sounds, Soft. absent: Guarding, Tenderness - Extremities Exam Additional comments: - L thumb: presence of cast and bandages, clean dry and intact. - R leg has a smaller length than L leg, ~ 1.5 inches. - Tenderness on R leg from lateral hip to anterior knee. - Neurological Exam Neurological exam: Alert, Oriented x3 - Psychiatric Exam Psychiatric exam: Normal Mood Results - Vital Signs Recent Vital Signs: Last Vital Signs Temp 97.2 F L 06/03/17 07:58 Pulse 73 06/03/17 09:10 Resp 20 06/03/17 07:58 BP 132/62 06/03/17 09:10 Pulse Ox 99 06/03/17 07:58 Assessment & Plan - Assessment and Plan (Free Text) Assessment: 86 y/o F with a PMHx of multiple CVA and TIA, and HTN, with bilateral leg weakness, s/p mechanical fall 5 days ago, admitted for rehabilitation and management of open L thumb open fracture. Plan: 1. Unstable gait / Weakness, bilateral leg at high risk for fall / Hx of multiple CVA episodes - Pt unable to perform ADL due to b/l leg weakness and L thumb fracture. - Physical therapy for muscle strengthening . - Fall precautions. - Aspirin 325mg daily. 2. Open fracture of L thumb - Clindamycin IV - Pt is left-handed. - Follow up Orthopedics' recommendations. - Tramadol as pain management. 3. Head injury, acute - CT of head with NO intracranial hemorrhage. - Continue wound care of facial hematoma and ecchymosis - Fall precautions. 4. R femur infarct changes -XR R femur showed patchy sclerotic densities in distal femoral diaphysis that may be bone infarct. -XR R knee with NO acute displaced fracture nor dislocation. (speckled granular sclerotic chnages within the distal R femoral shaft poss bone infarct changes. MRI for poss enchondroma vs chondrosarcoma) - Follow orthopedics's recommendations. 5. Sayda-oral numbness -F/u neurologist Dr Harper's evaluation and recommendations. 6. Hypertension - C/w Losartan. - Monitor BP. 7. Prophylaxis - Pepcid as per Stress Ulcer prophylaxis. - Lovenox for DVT prophylaxis. - Lactobacillus PO, pro-biotic while on antibiotic. - Date & Time Date: 06/03/17 Time: 11:20
--- NOTE | 2017-06-03 16:43 | CP.PCM.CON ---
History of Present Illness - History of Present Illness History of Present Illness: Patient seen in the TCU on PMR consultation. Cici Priest, born 1930 who was initially admitted after a mechanical fall lead to multiple injuries with the left thumb suffering fracture. Now with cast. Right facial bruising and hematoma noted. No conjunctival abnormalities. The right knee and hip also with bruising. Review of Systems - Constitutional Constitutional: absent: Anorexia, Chills - EENT Eyes: absent: Blind Spots Ears: absent: Dizziness Nose/Mouth/Throat: absent: Nasal Congestion - Cardiovascular Cardiovascular: absent: Chest Pain - Respiratory Respiratory: absent: Dyspnea, Hemoptysis - Gastrointestinal Gastrointestinal: absent: Abdominal Pain - Musculoskeletal Musculoskeletal: Back Pain. absent: Numbness Past Patient History - Past Medical History & Family History Past Medical History?: Yes - Past Social History Smoking Status: Former Smoker - CARDIAC Hx Hypertension: Yes - PULMONARY Hx Respiratory Disorders: No - NEUROLOGICAL HX Cerebrovascular Accident: Yes - HEENT Hx HEENT Problems: No - RENAL Hx Chronic Kidney Disease: No - ENDOCRINE/METABOLIC Hx Endocrine Disorders: No - HEMATOLOGICAL/ONCOLOGICAL Hx AIDS: No Hx Anemia: Yes (B12 deficiency) Hx Blood Transfusions: Yes Hx Blood Transfusion Reaction: Yes Hx Chemotherapy: Yes Hx Human Immunodeficiency Virus (HIV): No Hx Leukemia: Yes (1958) - INTEGUMENTARY Hx Dermatological Problems: No - MUSCULOSKELETAL/RHEUMATOLOGICAL Hx Arthritis: Yes Hx Falls: Yes Hx Fractures: Yes (l thumb) Hx Unsteady Gait: Yes - GASTROINTESTINAL Hx Gastrointestinal Disorders: No - GENITOURINARY/GYNECOLOGICAL Hx Genitourinary Disorders: No - PSYCHIATRIC Hx Anxiety: Yes Hx Substance Use: No - SURGICAL HISTORY Hx Surgeries: Yes Hx Breast Biopsy: Yes Hx Orthopedic Surgery: Yes (RT HIP REPLACEMENT, 1988) Other/Comment: LEFT BREAST BIOPSY WITH CLIP 12 YEARS AGO - ANESTHESIA Hx Anesthesia: Yes Hx Anesthesia Reactions: No Hx Malignant Hyperthermia: No Meds Allergies/Adverse Reactions: Allergies Allergy/AdvReac Type Severity Reaction Status Date / Time amlodipine besylate Allergy SWELLING Verified 05/30/17 15:17 [From Norvasc] aspirin [From Aggrenox] Allergy SWELLING Verified 05/30/17 15:17 ciprofloxacin [From Cipro] Allergy RASH Verified 05/30/17 15:17 ciprofloxacin HCl Allergy RASH Verified 05/30/17 15:17 [From Cipro] codeine Allergy RASH Verified 05/30/17 15:17 dipyridamole [From Aggrenox] Allergy SWELLING Verified 05/30/17 15:17 gabapentin [From Neurontin] Allergy SWELLING Verified 05/30/17 15:17 lisinopril Allergy RASH Verified 05/30/17 15:17 metoprolol tartrate Allergy SWELLING Verified 05/30/17 15:17 [From Lopressor] metronidazole [From Flagyl] Allergy RASH Verified 05/30/17 15:17 Penicillins Allergy RASH Verified 08/26/16 11:35 tetanus toxoid, adsorbed Allergy RASH Verified 08/26/16 11:35 - Medications Medications: Current Medications Acetaminophen (Tylenol 325mg Tab) 650 mg PO Q6 PRN PRN Reason: Pain, Mild (1-3) Aspirin (Ecotrin) 325 mg PO DAILY [facility] Last Admin: 06/03/17 09:10 Dose: 325 mg Cholecalciferol (Vitamin D) 2,000 intlu PO DAILY [facility] Last Admin: 06/03/17 09:10 Dose: 2,000 intlu Cyanocobalamin (Vitamin B12 1000 Mcg Tab) 1,000 mcg PO DAILY [facility] Last Admin: 06/03/17 09:10 Dose: 1,000 mcg Famotidine (Pepcid) 20 mg PO DAILY [facility] Last Admin: 06/03/17 09:11 Dose: 20 mg Clindamycin Phosphate (Cleocin In Normal Saline) 600 mg in 50 mls @ 50 mls/hr IVPB Q8@0500,1300,2100 [facility] PRN Reason: Protocol Last Admin: 06/03/17 12:40 Dose: 50 mls/hr Losartan Potassium (Cozaar) 25 mg PO DAILY [facility] Last Admin: 06/03/17 09:10 Dose: 25 mg Timolol Maleate (Timoptic 0.5% Ophth Soln) 1 drop OD QAM [facility] Last Admin: 06/03/17 09:09 Dose: 1 u Tramadol HCl (Ultram) 50 mg PO Q6 PRN PRN Reason: Pain, moderate (4-7) Last Admin: 06/03/17 09:07 Dose: 50 mg Physical Exam - Head Exam Head Exam: absent: ATRAUMATIC, NORMAL INSPECTION (bruising as noted on right side with hematoma) - Eye Exam Pupil Exam: NORMAL ACCOMODATION - ENT Exam ENT Exam: Mucous Membranes Moist - Respiratory Exam Respiratory Exam: NORMAL BREATHING PATTERN - Cardiovascular Exam Cardiovascular Exam: REGULAR RHYTHM - GI/Abdominal Exam GI & Abdominal Exam: Normal Bowel Sounds. absent: Distended - Extremities Exam Extremities exam: Negative for: calf tenderness - Neurological Exam Neurological exam: Alert, CN II-XII Intact, Oriented x3 - Psychiatric Exam Psychiatric exam: Normal Affect, Normal Mood Results - Vital Signs Recent Vital Signs: Last Vital Signs Temp 97.3 F L 06/03/17 16:03 Pulse 79 06/03/17 16:03 Resp 20 06/03/17 16:03 BP 140/65 06/03/17 16:03 Pulse Ox 94 L 06/03/17 16:03 Assessment & Plan - Assessment and Plan (Free Text) Assessment: Fall with left thumb fracture and multiple bruises PT/OT pain controlled not safe to go home at this time, she lives alone and is left handed
[2017-06-03] MEDS: Lactobacillus Acidophilus 500 MU Cap PO SCH (17:54)
[2017-06-04] MEDS: Clindamycin 600mg/50ml NS 600 MG/50 ML BAG IVPB SCH ×3 (05:08→21:26)
--- NOTE | 2017-06-04 08:29 | CP.PCM.CON ---
History of Present Illness - History of Present Illness History of Present Illness: This 86 year old female was admitted to acute medicine after sustaining multiple injuries from a fall. She had done well and is under orthopedic care for a fracture of the left thumb. Her neurological status has been stable on medications without indication of any recent CVA or TIA. She has now been transferred to sub-acute care for further physical therapy since she is unsafe for discharge back to her home. Past Patient History - Past Medical History & Family History Past Medical History?: Yes Pertinent Family History: stroke, brain cancer, alcoholism - Past Social History Smoking Status: Never Smoked (secondhand exposure) Chewing Tobacco Use: No Cigar Use: No Alcohol: Social Drugs: Denies Home Situation {Lives}: Alone - CARDIAC Hx Hypercholesterolemia: Yes Hx Hypertension: Yes Hx Peripheral Vascular Disease: Yes - PULMONARY Hx Respiratory Disorders: No - NEUROLOGICAL HX Cerebrovascular Accident: Yes Hx Transient Ischemic Attacks (TIA): Yes - HEENT Hx HEENT Problems: No - RENAL Hx Chronic Kidney Disease: No - ENDOCRINE/METABOLIC Other/Comment: Hyperparathyroidism - HEMATOLOGICAL/ONCOLOGICAL Hx AIDS: No Hx Anemia: Yes (B12 deficiency) Hx Blood Transfusions: Yes Hx Chemotherapy: Yes Hx Human Immunodeficiency Virus (HIV): No Hx Leukemia: Yes (1958) - INTEGUMENTARY Hx Dermatological Problems: No - MUSCULOSKELETAL/RHEUMATOLOGICAL Hx Arthritis: Yes Hx Falls: Yes Hx Fractures: Yes (l thumb) Hx Unsteady Gait: Yes - GASTROINTESTINAL Hx Gastrointestinal Disorders: No - GENITOURINARY/GYNECOLOGICAL Hx Genitourinary Disorders: No - PSYCHIATRIC Hx Anxiety: Yes Hx Substance Use: No - SURGICAL HISTORY Hx Breast Biopsy: Yes Hx Orthopedic Surgery: Yes (RT HIP REPLACEMENT, 1988) Other/Comment: LEFT BREAST BIOPSY WITH CLIP 12 YEARS AGO - ANESTHESIA Hx Anesthesia: Yes Hx Anesthesia Reactions: No Hx Malignant Hyperthermia: No Meds Allergies/Adverse Reactions: Allergies Allergy/AdvReac Type Severity Reaction Status Date / Time amlodipine besylate Allergy SWELLING Verified 05/30/17 15:17 [From Norvasc] aspirin [From Aggrenox] Allergy SWELLING Verified 05/30/17 15:17 ciprofloxacin [From Cipro] Allergy RASH Verified 05/30/17 15:17 ciprofloxacin HCl Allergy RASH Verified 05/30/17 15:17 [From Cipro] codeine Allergy RASH Verified 05/30/17 15:17 dipyridamole [From Aggrenox] Allergy SWELLING Verified 05/30/17 15:17 gabapentin [From Neurontin] Allergy SWELLING Verified 05/30/17 15:17 lisinopril Allergy RASH Verified 05/30/17 15:17 metoprolol tartrate Allergy SWELLING Verified 05/30/17 15:17 [From Lopressor] metronidazole [From Flagyl] Allergy RASH Verified 05/30/17 15:17 Penicillins Allergy RASH Verified 08/26/16 11:35 tetanus toxoid, adsorbed Allergy RASH Verified 08/26/16 11:35 - Medications Medications: Current Medications Acetaminophen (Tylenol 325mg Tab) 650 mg PO Q6 PRN PRN Reason: Pain, Mild (1-3) Aspirin (Ecotrin) 325 mg PO DAILY [facility] Last Admin: 06/03/17 09:10 Dose: 325 mg Benzocaine/Menthol (Cepacol Sore Throat) 1 pedro luis PO Q3 PRN PRN Reason: Sore Throat Cholecalciferol (Vitamin D) 2,000 intlu PO DAILY [facility] Last Admin: 06/03/17 09:10 Dose: 2,000 intlu Cyanocobalamin (Vitamin B12 1000 Mcg Tab) 1,000 mcg PO DAILY [facility] Last Admin: 06/03/17 09:10 Dose: 1,000 mcg Enoxaparin Sodium (Lovenox) 40 mg SC DAILY [facility] PRN Reason: Protocol Famotidine (Pepcid) 20 mg PO DAILY [facility] Last Admin: 06/03/17 09:11 Dose: 20 mg Clindamycin Phosphate (Cleocin In Normal Saline) 600 mg in 50 mls @ 50 mls/hr IVPB Q8@0500,1300,2100 [facility] PRN Reason: Protocol Last Admin: 06/04/17 05:08 Dose: 50 mls/hr Lactobacillus Acidophilus (Bacid Acidophilus) 1 cap PO BID [facility] Last Admin: 06/03/17 17:54 Dose: 1 cap Losartan Potassium (Cozaar) 25 mg PO DAILY [facility] Last Admin: 06/03/17 09:10 Dose: 25 mg Timolol Maleate (Timoptic 0.5% Ophth Soln) 1 drop OD QAM [facility] Last Admin: 06/03/17 09:09 Dose: 1 u Tramadol HCl (Ultram) 50 mg PO Q6 PRN PRN Reason: Pain, moderate (4-7) Last Admin: 06/03/17 09:07 Dose: 50 mg Physical Exam - Additional Findings Additional findings: Awake and well oriented, in no acute distress. Facial ecchymosis starting to fade, gravitational extension to the level of the jaw. Pharynx is pink and moist. Nares are patent w/o bleeding or exudate. Conjunctiva injected on right, pink on left. Neck is supple and trachea midline, no JVD. No dullness on chest percussion, equal expansion. Breath sounds well heard bilaterally. No rales or wheezes. Occasional rhonchi in dependant regions of LLs bilaterally. Heart sounds well heard, rhythm is regular. Abdomen is soft and non-tender, + bowel sounds. Left knee abrasion noted, minimal swelling and tenderness on palpation. Left ankle trace edema, no cyanosis. Results - Vital Signs Recent Vital Signs: Last Vital Signs Temp 97.0 F L 06/03/17 20:13 Pulse 80 06/03/17 20:13 Resp 20 06/03/17 20:13 BP 129/62 06/03/17 20:13 Pulse Ox 96 06/03/17 20:13 Assessment & Plan (1) Fracture of thumb, left, open Status: Acute Priority: High (2) Fall Status: Acute Priority: High (3) Head injury Status: Acute Priority: High (4) Hypertension Status: Chronic Priority: High - Date & Time Date: 06/04/17 Time: 08:29
[2017-06-04] MEDS: Cholecalciferol 1,000 INTLU TAB PO SCH (09:05)
[2017-06-04] MEDS: Aspirin 325 mg EC Tablets PO SCH (09:07)
[2017-06-04] MEDS: Lactobacillus Acidophilus 500 MU Cap PO SCH ×2 (09:09→17:24)
[2017-06-04] MEDS: Enoxaparin 40 mg Syringe SC SCH (09:10)
--- NOTE | 2017-06-04 10:14 | CP.PCM.PN ---
Subjective - Date & Time of Evaluation Date of Evaluation: 06/04/17 Time of Evaluation: 10:12 - Subjective Subjective: Patient says thumb is still painful but controlled. No new complaints. Review of Systems - Review of Systems All systems: reviewed and no additional remarkable complaints except - Constitutional Additional comments: denies fever vhills - Cardiovascular Cardiovascular: UNREMARKABLE - Respiratory Respiratory: UNREMARKABLE - Gastrointestinal Gastrointestinal: UNREMARKABLE - Musculoskeletal Musculoskeletal: As Par HPI - Integumentary Integumentary: As Per HPI - Neurological Neurological: UNREMARKABLE - Hematologic/Lymphatic Hematologic: UNREMARKABLE Objective - Vital Signs/Intake and Output Vital Signs (last 24 hours): Temp Pulse Resp BP Pulse Ox 97.9 F 89 20 153/71 H 97 06/04/17 08:35 06/04/17 09:05 06/04/17 08:35 06/04/17 09:05 06/04/17 08:35 - Medications Medications: Current Medications Acetaminophen (Tylenol 325mg Tab) 650 mg PO Q6 PRN PRN Reason: Pain, Mild (1-3) Last Admin: 06/04/17 09:09 Dose: 650 mg Aspirin (Ecotrin) 325 mg PO DAILY [facility] Last Admin: 06/04/17 09:07 Dose: 325 mg Benzocaine/Menthol (Cepacol Sore Throat) 1 pedro luis PO Q3 PRN PRN Reason: Sore Throat Cholecalciferol (Vitamin D) 2,000 intlu PO DAILY [facility] Last Admin: 06/04/17 09:05 Dose: 2,000 intlu Cyanocobalamin (Vitamin B12 1000 Mcg Tab) 1,000 mcg PO DAILY [facility] Last Admin: 06/04/17 09:05 Dose: 1,000 mcg Enoxaparin Sodium (Lovenox) 40 mg SC DAILY [facility] PRN Reason: Protocol Last Admin: 06/04/17 09:10 Dose: 40 mg Famotidine (Pepcid) 20 mg PO DAILY [facility] Last Admin: 06/04/17 09:07 Dose: 20 mg Clindamycin Phosphate (Cleocin In Normal Saline) 600 mg in 50 mls @ 50 mls/hr IVPB Q8@0500,1300,2100 [facility] PRN Reason: Protocol Last Admin: 06/04/17 05:08 Dose: 50 mls/hr Lactobacillus Acidophilus (Bacid Acidophilus) 1 cap PO BID [facility] Last Admin: 06/04/17 09:09 Dose: 1 cap Losartan Potassium (Cozaar) 25 mg PO DAILY [facility] Last Admin: 06/04/17 09:05 Dose: 25 mg Timolol Maleate (Timoptic 0.5% Ophth Soln) 1 drop OD QAM [facility] Last Admin: 06/04/17 09:04 Dose: 1 u Tramadol HCl (Ultram) 50 mg PO Q6 PRN PRN Reason: Pain, moderate (4-7) Last Admin: 06/03/17 09:07 Dose: 50 mg - Constitutional Appears: Well, No Acute Distress - Head Exam Additional comments: right side of face ecchymotic - Skin Skin Exam: Warm Additional comments: wound scant serous drainage. Ecchymotic but no signs of infection. no odor/no pus. +cap refill, sensation intact. Redressed wiht xeroform, telfa, kerlex, splint reapplied Assessment and Plan (1) Open fracture of distal phalanx of left thumb Assessment & Plan: monitor wound continue splint and elevation IV clindamycin no surgical intervention indicated Dr. Gregory will follow Status: Acute (2) Open fracture of proximal phalanx of left thumb Status: Acute (3) Bone infarct of distal femur Assessment & Plan: Per radiology report, recommend MRI, d/w Dr. Gregory MRI ordered as inpatient not completed, will reorder Status: Chronic
[2017-06-04] MEDS: Benzocaine/Menthol (Cepacol) Lozenge PO PRN (17:25)
[2017-06-04] MEDS: guaiFENesin 100 mg/5 ml Syrup UD PO PRN (21:33)
[2017-06-05] MEDS: Clindamycin 600mg/50ml NS 600 MG/50 ML BAG IVPB SCH (06:44)
[2017-06-05] MEDS: Aspirin 325 mg EC Tablets PO SCH (08:10)
[2017-06-05] MEDS: Enoxaparin 40 mg Syringe SC SCH (08:10)
[2017-06-05] MEDS: Lactobacillus Acidophilus 500 MU Cap PO SCH ×2 (08:10→16:10)
[2017-06-05] MEDS: Cholecalciferol 1,000 INTLU TAB PO SCH (08:11)
[2017-06-05] MEDS: guaiFENesin 100 mg/5 ml Syrup UD PO PRN ×2 (10:35→21:56)
[2017-06-05] MEDS: Benzocaine/Menthol (Cepacol) Lozenge PO PRN (10:35)
--- NOTE | 2017-06-05 10:37 | MRI ---
MRI right femur History: Bone mass. Comparison: X-ray dated 06/02/2017 Technique: Multi-echo and multiplanar sequences were performed through the right femur without the use of intravenous contrast. Findings: Prominent blooming artifact seen at the level of the proximal femur and right hip joint from prior arthroplasty. Within the medullary cavity of the mid to distal right femoral shaft, there are some heterogeneous curvilinear foci of decreased T1 signal and increased STIR signal which measure up to 8.5 centimeters in craniocaudal dimension. These appear symmetric in comparison to the left mid to distal femur. In correlation with the recent plain x-ray, this appears somewhat sclerotic in appearance. This is of uncertain clinical etiology. Considerations may include a chondroid matrix/lesion versus chronic bone infarcts versus prominent intraosseous vasculature versus heterogeneous marrow reconversion. Correlation with bone scan may be helpful clinically indicated. Clinical correlation. Remainder of the visualized femur appears grossly preserved. Mild increased signal seen within the right inferior pelvic floor musculature. Remainder of the visualized musculature appears preserved. Impression: 1. Prominent blooming artifact seen at the level of the proximal femur and right hip joint from prior arthroplasty. 2. Within the medullary cavity of the mid to distal right femoral shaft, there are some heterogeneous curvilinear foci of decreased T1 signal and increased STIR signal which measure up to 8.5 centimeters in craniocaudal dimension. These appear symmetric in comparison to the left mid to distal femur. In correlation with the recent plain x-ray, this appears somewhat sclerotic in appearance. This is of uncertain clinical etiology. Considerations may include a chondroid matrix/lesion versus chronic bone infarcts versus prominent intraosseous vasculature versus heterogeneous marrow reconversion. Correlation with bone scan may be helpful clinically indicated. Clinical correlation. 3. Mild increased signal seen within the right inferior pelvic floor musculature. Remainder of the visualized musculature appears preserved.
--- NOTE | 2017-06-05 12:26 | CP.PCM.PN ---
Subjective - Date & Time of Evaluation Date of Evaluation: 06/05/17 Time of Evaluation: 12:24 - Subjective Subjective: ornery patient, difficult. claims she has a rash due to clindamycin. will get ID reconsult for reevaluation of abx. no rash appreciated on exam. HD stable. NAD. Objective - Vital Signs/Intake and Output Vital Signs (last 24 hours): Temp Pulse Resp BP Pulse Ox 97.6 F 77 20 150/69 99 06/05/17 08:16 06/05/17 08:16 06/05/17 08:16 06/05/17 08:16 06/05/17 08:16 - Medications Medications: Current Medications Acetaminophen (Tylenol 325mg Tab) 650 mg PO Q6 PRN PRN Reason: Pain, Mild (1-3) Last Admin: 06/04/17 09:09 Dose: 650 mg Aspirin (Ecotrin) 325 mg PO DAILY [facility] Last Admin: 06/05/17 08:10 Dose: 325 mg Benzocaine/Menthol (Cepacol Sore Throat) 1 pedro luis PO Q3 PRN PRN Reason: Sore Throat Last Admin: 06/05/17 10:35 Dose: 1 pedro luis Cholecalciferol (Vitamin D) 2,000 intlu PO DAILY [facility] Last Admin: 06/05/17 08:11 Dose: 2,000 intlu Cyanocobalamin (Vitamin B12 1000 Mcg Tab) 1,000 mcg PO DAILY [facility] Last Admin: 06/05/17 08:11 Dose: 1,000 mcg Enoxaparin Sodium (Lovenox) 40 mg SC DAILY [facility] PRN Reason: Protocol Last Admin: 06/05/17 08:10 Dose: 40 mg Famotidine (Pepcid) 20 mg PO DAILY [facility] Last Admin: 06/05/17 08:11 Dose: 20 mg Guaifenesin (Robitussin) 100 mg PO Q6 PRN PRN Reason: Cough Last Admin: 06/05/17 10:35 Dose: 100 mg Clindamycin Phosphate (Cleocin In Normal Saline) 600 mg in 50 mls @ 50 mls/hr IVPB Q8@0500,1300,2100 [facility] PRN Reason: Protocol Lactobacillus Acidophilus (Bacid Acidophilus) 1 cap PO BID [facility] Last Admin: 06/05/17 08:10 Dose: 1 cap Losartan Potassium (Cozaar) 25 mg PO DAILY [facility] Last Admin: 06/05/17 08:10 Dose: 25 mg Timolol Maleate (Timoptic 0.5% Ophth Soln) 1 drop OD QAM [facility] Last Admin: 06/05/17 08:11 Dose: 1 u Tramadol HCl (Ultram) 50 mg PO Q6 PRN PRN Reason: Pain, moderate (4-7) Last Admin: 06/04/17 23:23 Dose: 50 mg - Constitutional Appears: Non-toxic, No Acute Distress - Head Exam Head Exam: ATRAUMATIC, NORMOCEPHALIC - Eye Exam Eye Exam: EOMI, Normal appearance, PERRL - ENT Exam ENT Exam: Mucous Membranes Moist, Normal Oropharynx - Respiratory Exam Respiratory Exam: Clear to Ausculation Bilateral, NORMAL BREATHING PATTERN - Cardiovascular Exam Cardiovascular Exam: RRR, +S1, +S2 - GI/Abdominal Exam GI & Abdominal Exam: Soft, Normal Bowel Sounds. absent: Mass, Organomegaly - Extremities Exam Extremities Exam: Normal Capillary Refill. absent: Calf Tenderness - Back Exam Back Exam: absent: CVA tenderness (L), CVA tenderness (R) - Neurological Exam Neurological Exam: Alert, Awake - Psychiatric Exam Psychiatric exam: Normal Affect, Normal Mood Additional comments: ornery. difficult, argumentative. - Skin Skin Exam: Dry, Normal Color, Warm Assessment and Plan - Assessment and Plan (Free Text) Plan: 86 y/o F with a PMHx of multiple CVA and TIA, and HTN, with bilateral leg weakness, s/p mechanical fall 5 days ago, admitted for rehabilitation and management of open L thumb open fracture. 1. Unstable gait / Weakness, bilateral leg at high risk for fall / Hx of multiple CVA episodes - Pt unable to perform ADL due to b/l leg weakness and L thumb fracture. - Physical therapy for muscle strengthening . - Fall precautions. - Aspirin 325mg daily. 2. Open fracture of L thumb - pt complaining of "rash" however none appreciated on physical exam. reconsult ID - Clindamycin IV - Pt is left-handed. - Follow up Orthopedics' recommendations. - Tramadol as pain management. 3. Head injury, acute - CT of head with NO intracranial hemorrhage. - Continue wound care of facial hematoma and ecchymosis - Fall precautions. 4. R femur infarct changes -XR R femur showed patchy sclerotic densities in distal femoral diaphysis that may be bone infarct. -XR R knee with NO acute displaced fracture nor dislocation. (speckled granular sclerotic chnages within the distal R femoral shaft poss bone infarct changes. MRI for poss enchondroma vs chondrosarcoma) - Follow orthopedics's recommendations. 5. Sayda-oral numbness -F/u neurologist Dr Harper's evaluation and recommendations. 6. Hypertension - C/w Losartan. - Monitor BP. 7. Prophylaxis - Pepcid as per Stress Ulcer prophylaxis. - Lovenox for DVT prophylaxis. - Lactobacillus PO, pro-biotic while on antibiotic.
--- NOTE | 2017-06-05 14:51 | CP.PCM.PN ---
Subjective - Date & Time of Evaluation Date of Evaluation: 06/05/17 Time of Evaluation: 14:47 - Subjective Subjective: Seen in her room today, just finishing physical therapy. Facial ecchymosis beginning to resolve. Right knee abrasion and swelling with ecchymosis also is very tender on palpation. ROM appears to be preserved. Left hand dressing intact, fingers are pink and warm. I do not see a rash that was reported as present earlier, pruritic, presumed secondary to clindamycin. Clindamycin is on hold and doxycycline started (multiple medication allergies incl PCN, metronidazole and quinolone). Vital signs have been stable, although mildly hypertensive. Objective - Vital Signs/Intake and Output Vital Signs (last 24 hours): Temp Pulse Resp BP Pulse Ox 97.6 F 77 20 150/69 99 06/05/17 08:16 06/05/17 08:16 06/05/17 08:16 06/05/17 08:16 06/05/17 08:16 - Medications Medications: Current Medications Acetaminophen (Tylenol 325mg Tab) 650 mg PO Q6 PRN PRN Reason: Pain, Mild (1-3) Last Admin: 06/04/17 09:09 Dose: 650 mg Aspirin (Ecotrin) 325 mg PO DAILY [facility] Last Admin: 06/05/17 08:10 Dose: 325 mg Benzocaine/Menthol (Cepacol Sore Throat) 1 pedro luis PO Q3 PRN PRN Reason: Sore Throat Last Admin: 06/05/17 10:35 Dose: 1 pedro luis Cholecalciferol (Vitamin D) 2,000 intlu PO DAILY [facility] Last Admin: 06/05/17 08:11 Dose: 2,000 intlu Cyanocobalamin (Vitamin B12 1000 Mcg Tab) 1,000 mcg PO DAILY [facility] Last Admin: 06/05/17 08:11 Dose: 1,000 mcg Doxycycline Hyclate (Doryx) 100 mg PO Q12 [facility] PRN Reason: Protocol Enoxaparin Sodium (Lovenox) 40 mg SC DAILY [facility] PRN Reason: Protocol Last Admin: 06/05/17 08:10 Dose: 40 mg Famotidine (Pepcid) 20 mg PO DAILY [facility] Last Admin: 06/05/17 08:11 Dose: 20 mg Guaifenesin (Robitussin) 100 mg PO Q6 PRN PRN Reason: Cough Last Admin: 06/05/17 10:35 Dose: 100 mg Lactobacillus Acidophilus (Bacid Acidophilus) 1 cap PO BID [facility] Last Admin: 06/05/17 08:10 Dose: 1 cap Losartan Potassium (Cozaar) 25 mg PO DAILY [facility] Last Admin: 06/05/17 08:10 Dose: 25 mg Timolol Maleate (Timoptic 0.5% Ophth Soln) 1 drop OD QAM [facility] Last Admin: 06/05/17 08:11 Dose: 1 u Tramadol HCl (Ultram) 50 mg PO Q6 PRN PRN Reason: Pain, moderate (4-7) Last Admin: 06/05/17 13:44 Dose: 50 mg
[2017-06-05] MEDS ORDERED: Clindamycin 600mg/50ml NS 600 MG/50 ML BAG IVPB SCH (21:00)
[2017-06-06] MEDS: Lactobacillus Acidophilus 500 MU Cap PO SCH ×2 (08:34→17:26)
[2017-06-06] MEDS: Aspirin 325 mg EC Tablets PO SCH (08:35)
[2017-06-06] MEDS: Cholecalciferol 1,000 INTLU TAB PO SCH (08:35)
[2017-06-06] MEDS: Enoxaparin 40 mg Syringe SC SCH (08:36)
[2017-06-06] MEDS: Benzocaine/Menthol (Cepacol) Lozenge PO PRN (08:37)
--- NOTE | 2017-06-06 10:20 | CP.PCM.PN ---
Subjective - Date & Time of Evaluation Date of Evaluation: 06/06/17 Time of Evaluation: 10:14 - Subjective Subjective: Patient seen and examined in chair comfortable. Pain well controlled. Tolerating diet well. No acute events overnight. Objective - Vital Signs/Intake and Output Vital Signs (last 24 hours): Temp Pulse Resp BP Pulse Ox 98.4 F 90 20 106/71 92 L 06/06/17 09:30 06/06/17 09:30 06/06/17 09:30 06/06/17 09:30 06/06/17 09:30 - Medications Medications: Current Medications Acetaminophen (Tylenol 325mg Tab) 650 mg PO Q6 PRN PRN Reason: Pain, Mild (1-3) Last Admin: 06/04/17 09:09 Dose: 650 mg Aspirin (Ecotrin) 325 mg PO DAILY [facility] Last Admin: 06/06/17 08:35 Dose: 325 mg Benzocaine/Menthol (Cepacol Sore Throat) 1 pedro luis PO Q3 PRN PRN Reason: Sore Throat Last Admin: 06/06/17 08:37 Dose: 1 pedro luis Cholecalciferol (Vitamin D) 2,000 intlu PO DAILY [facility] Last Admin: 06/06/17 08:35 Dose: 2,000 intlu Cyanocobalamin (Vitamin B12 1000 Mcg Tab) 1,000 mcg PO DAILY [facility] Last Admin: 06/06/17 08:36 Dose: 1,000 mcg Doxycycline Hyclate (Doryx) 100 mg PO Q12 [facility] PRN Reason: Protocol Last Admin: 06/06/17 08:36 Dose: 100 mg Enoxaparin Sodium (Lovenox) 40 mg SC DAILY [facility] PRN Reason: Protocol Last Admin: 06/06/17 08:36 Dose: 40 mg Famotidine (Pepcid) 20 mg PO DAILY@2100 [facility] Guaifenesin (Robitussin) 100 mg PO Q6 PRN PRN Reason: Cough Last Admin: 06/05/17 21:56 Dose: 100 mg Lactobacillus Acidophilus (Bacid Acidophilus) 1 cap PO BID [facility] Last Admin: 06/06/17 08:34 Dose: 1 cap Losartan Potassium (Cozaar) 25 mg PO DAILY [facility] Last Admin: 06/06/17 08:38 Dose: 25 mg Timolol Maleate (Timoptic 0.5% Oph Soln) 1 drop OD QAM [facility] Last Admin: 06/06/17 08:34 Dose: 1 u - Constitutional Appears: No Acute Distress - Extremities Exam Additional comments: Right hand: hand in splint, splint taken down revealing thumb would clean and dry, no erythema or drainage, + thumb deformity, moderate tenderness secondary to injury, sensation intact MN/UN/RN, motor intact MN/UN/AIN/PIN, radial pulse intact LLE: no tenderness, no swelling, sensation intact SP/DP/TN, motor intact distally, pedal pulses intact, calves soft NT b/l - Neurological Exam Neurological Exam: Alert, Awake, Oriented x3 Neuro motor strength exam: Left Lower Extremity: 5 - Additional Findings Additional findings: MRI right femur History: Bone mass. Comparison: X-ray dated 06/02/2017 Technique: Multi-echo and multiplanar sequences were performed through the right femur without the use of intravenous contrast. Findings: Prominent blooming artifact seen at the level of the proximal femur and right hip joint from prior arthroplasty. Within the medullary cavity of the mid to distal right femoral shaft, there are some heterogeneous curvilinear foci of decreased T1 signal and increased STIR signal which measure up to 8.5 centimeters in craniocaudal dimension. These appear symmetric in comparison to the left mid to distal femur. In correlation with the recent plain x-ray, this appears somewhat sclerotic in appearance. This is of uncertain clinical etiology. Considerations may include a chondroid matrix/lesion versus chronic bone infarcts versus prominent intraosseous vasculature versus heterogeneous marrow reconversion. Correlation with bone scan may be helpful clinically indicated. Clinical correlation. Remainder of the visualized femur appears grossly preserved. Mild increased signal seen within the right inferior pelvic floor musculature. Remainder of the visualized musculature appears preserved. Impression: 1. Prominent blooming artifact seen at the level of the proximal femur and right hip joint from prior arthroplasty. 2. Within the medullary cavity of the mid to distal right femoral shaft, there are some heterogeneous curvilinear foci of decreased T1 signal and increased STIR signal which measure up to 8.5 centimeters in craniocaudal dimension. These appear symmetric in comparison to the left mid to distal femur. In correlation with the recent plain x-ray, this appears somewhat sclerotic in appearance. This is of uncertain clinical etiology. Considerations may include a chondroid matrix/lesion versus chronic bone infarcts versus prominent intraosseous vasculature versus heterogeneous marrow reconversion. Correlation with bone scan may be helpful clinically indicated. Clinical correlation. 3. Mild increased signal seen within the right inferior pelvic floor musculature. Remainder of the visualized musculature appears preserved. Assessment and Plan (1) Fracture of thumb, left, open Assessment & Plan: -Dressings changed, wound appears improved. We will change dressings on Friday and continue to monitor -will keep immobilized in splint and continue to treat conservatively as outpt -will discuss case and plan with attending Status: Acute (2) Bone infarct of distal femur Assessment & Plan: -MRI of left femur reviewed revealing possible sclerotic changes consistent with chronic findings. -PT/OT WBAT with platform walker -will monitor condition and patient can follow up in office, possible orthopedic oncology f/u as well -will discuss case and plan with attending Status: Chronic
[2017-06-07] MEDS: guaiFENesin 100 mg/5 ml Syrup UD PO PRN (06:55)
[2017-06-07] MEDS: Aspirin 325 mg EC Tablets PO SCH (08:31)
[2017-06-07] MEDS: Lactobacillus Acidophilus 500 MU Cap PO SCH ×2 (08:31→16:19)
[2017-06-07] MEDS: Enoxaparin 40 mg Syringe SC SCH (08:32)
[2017-06-07] MEDS: Cholecalciferol 1,000 INTLU TAB PO SCH (08:32)
--- NOTE | 2017-06-07 13:28 | CP.PCM.PN ---
Subjective - Date & Time of Evaluation Date of Evaluation: 06/07/17 Time of Evaluation: 13:28 - Subjective Subjective: Seated on the EOB. Presently being visited by her son. Conversant, not confused or disoriented. Asking about plan of rehab and eventual ability to return home. Ecchymosis over the right side of the face has extended to the level of the maxilla, seems to be starting to fade. Left hand remains heavily bandaged with the thumb immobilized. Fingers are pink and warm. Right knee slightly less swollen, less warmth and erythema. Superficial abrasions clean. Speech is fluent, memory is intact, no apparent focal motor weakness noted. No cough or dyspnea, no cyanosis. Vital signs remain stable. Objective - Vital Signs/Intake and Output Vital Signs (last 24 hours): Temp Pulse Resp BP Pulse Ox 98.1 F 82 20 125/65 99 06/07/17 07:45 06/07/17 08:31 06/07/17 07:45 06/07/17 08:31 06/07/17 07:45 - Medications Medications: Current Medications Acetaminophen (Tylenol 325mg Tab) 650 mg PO Q6 PRN PRN Reason: Pain, Mild (1-3) Last Admin: 06/04/17 09:09 Dose: 650 mg Aspirin (Ecotrin) 325 mg PO DAILY [facility] Last Admin: 06/07/17 08:31 Dose: 325 mg Benzocaine/Menthol (Cepacol Sore Throat) 1 pedro luis PO Q3 PRN PRN Reason: Sore Throat Last Admin: 06/06/17 08:37 Dose: 1 pedro luis Cholecalciferol (Vitamin D) 2,000 intlu PO DAILY [facility] Last Admin: 06/07/17 08:32 Dose: 2,000 intlu Cyanocobalamin (Vitamin B12 1000 Mcg Tab) 1,000 mcg PO DAILY [facility] Last Admin: 06/07/17 08:32 Dose: 1,000 mcg Doxycycline Hyclate (Doryx) 100 mg PO Q12 [facility] PRN Reason: Protocol Last Admin: 06/07/17 08:31 Dose: 100 mg Famotidine (Pepcid) 20 mg PO DAILY@2100 [facility] Last Admin: 06/06/17 21:38 Dose: 20 mg Guaifenesin (Robitussin) 100 mg PO Q6 PRN PRN Reason: Cough Last Admin: 06/07/17 06:55 Dose: 100 mg Lactobacillus Acidophilus (Bacid Acidophilus) 1 cap PO BID [facility] Last Admin: 06/07/17 08:31 Dose: 1 cap Losartan Potassium (Cozaar) 25 mg PO DAILY [facility] Last Admin: 06/07/17 08:31 Dose: 25 mg Timolol Maleate (Timoptic 0.5% Ophth Soln) 1 drop OD QAM [facility] Last Admin: 06/07/17 08:32 Dose: 1 u Tramadol HCl (Ultram) 50 mg PO Q4 PRN PRN Reason: Pain, moderate (4-7) Last Admin: 06/07/17 11:12 Dose: 50 mg
[2017-06-08] MEDS: Cholecalciferol 1,000 INTLU TAB PO SCH (08:52)
[2017-06-08] MEDS: Aspirin 325 mg EC Tablets PO SCH (08:54)
[2017-06-08] MEDS: guaiFENesin 100 mg/5 ml Syrup UD PO PRN (08:56)
[2017-06-08] MEDS: Lactobacillus Acidophilus 500 MU Cap PO SCH ×2 (08:57→16:34)
[2017-06-09] MEDS: Lactobacillus Acidophilus 500 MU Cap PO SCH ×2 (08:41→17:16)
[2017-06-09] MEDS: Cholecalciferol 1,000 INTLU TAB PO SCH (08:43)
[2017-06-09] MEDS: Aspirin 325 mg EC Tablets PO SCH (08:44)
[2017-06-09] MEDS: guaiFENesin 100 mg/5 ml Syrup UD PO PRN (10:18)
--- NOTE | 2017-06-09 11:00 | CP.PCM.PN ---
Subjective - Date & Time of Evaluation Date of Evaluation: 06/09/17 Time of Evaluation: 10:59 - Subjective Subjective: The patient is currently feeling well and participating effectively with physical therapy. Her vital signs remained stable and she continues to be afebrile. The facial ecchymosis is gradually resolving. There is an area of erythema and induration over the anterior aspect of the right knee without any increased warmth in this area. This area will need to be watched carefully to see if there is any indication of cellulitis. CBC and CMP will be requested for the a.m. Objective - Vital Signs/Intake and Output Vital Signs (last 24 hours): Temp Pulse Resp BP Pulse Ox 97.8 F 75 20 131/64 99 06/09/17 07:58 06/09/17 08:44 06/09/17 07:58 06/09/17 08:44 06/09/17 07:58 - Medications Medications: Current Medications Acetaminophen (Tylenol 325mg Tab) 650 mg PO Q6 PRN PRN Reason: Pain, Mild (1-3) Last Admin: 06/08/17 08:50 Dose: 650 mg Aspirin (Ecotrin) 325 mg PO DAILY [facility] Last Admin: 06/09/17 08:44 Dose: 325 mg Benzocaine/Menthol (Cepacol Sore Throat) 1 pedro luis PO Q3 PRN PRN Reason: Sore Throat Last Admin: 06/06/17 08:37 Dose: 1 pedro luis Cholecalciferol (Vitamin D) 2,000 intlu PO DAILY [facility] Last Admin: 06/09/17 08:43 Dose: 2,000 intlu Cyanocobalamin (Vitamin B12 1000 Mcg Tab) 1,000 mcg PO DAILY [facility] Last Admin: 06/09/17 08:43 Dose: 1,000 mcg Doxycycline Hyclate (Doryx) 100 mg PO Q12 [facility] PRN Reason: Protocol Last Admin: 06/09/17 08:43 Dose: 100 mg Famotidine (Pepcid) 20 mg PO DAILY@2100 [facility] Last Admin: 06/08/17 20:50 Dose: 20 mg Guaifenesin (Robitussin) 100 mg PO Q6 PRN PRN Reason: Cough Last Admin: 06/09/17 10:18 Dose: 100 mg Lactobacillus Acidophilus (Bacid Acidophilus) 1 cap PO BID [facility] Last Admin: 06/09/17 08:41 Dose: 1 cap Losartan Potassium (Cozaar) 25 mg PO DAILY [facility] Last Admin: 06/09/17 08:44 Dose: 25 mg Timolol Maleate (Timoptic 0.5% [facility]) 1 drop OD QAM [facility] Last Admin: 06/09/17 08:41 Dose: 1 u Tramadol HCl (Ultram) 50 mg PO Q4 PRN PRN Reason: Pain, moderate (4-7) Last Admin: 06/09/17 08:46 Dose: 50 mg Assessment and Plan (1) Fracture of thumb, left, open Status: Acute (2) Fall Status: Acute (3) Head injury Status: Acute (4) Hypertension Status: Chronic
[2017-06-10 06:55] LABS: HEMOGLOBIN 13.7 g/dL (12.0-16.0); MEAN CELL VOLUME 90.8 fl (81.0-99.0); RBC 4.71 Mil/uL (3.80-5.20); RED CELL DISTRIBUTION WIDTH 13.8 % (11.5-14.5); WHITE BLOOD COUNT 5.5 K/uL (4.8-10.8)
[2017-06-10 07:03] LABS: ALB/GLOB RATIO 1.1 (1.0-2.1); ALBUMIN 4.1 g/dL (3.5-5.0); ALT/SGPT 17 U/L (9-52); AST/SGOT 26 U/L (14-36); BLOOD UREA NITROGEN 18 mg/dl (7-17); CALCIUM 10.3 mg/dL (8.4-10.2); GFR AFRICAN-AMERICAN > 60; GFR NON-AFRICAN AMERICAN > 60
[2017-06-10] MEDS: Lactobacillus Acidophilus 500 MU Cap PO SCH ×2 (08:50→16:57)
[2017-06-10] MEDS: Aspirin 325 mg EC Tablets PO SCH (08:51)
[2017-06-10] MEDS: Cholecalciferol 1,000 INTLU TAB PO SCH (08:53)
--- NOTE | 2017-06-10 09:17 | CP.PCM.PN ---
Subjective - Date & Time of Evaluation Date of Evaluation: 06/10/17 Time of Evaluation: 09:16 - Subjective Subjective: Appears to be doing well on current regimen. 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 Vital signs are stable. Arrangements underway for continued sub-acute rehab. Objective - Vital Signs/Intake and Output Vital Signs (last 24 hours): Temp Pulse Resp BP Pulse Ox 97.3 F L 92 H 20 113/55 L 95 06/10/17 09:03 06/10/17 09:03 06/10/17 09:03 06/10/17 09:03 06/10/17 09:03 - Medications Medications: Current Medications Acetaminophen (Tylenol 325mg Tab) 650 mg PO Q6 PRN PRN Reason: Pain, Mild (1-3) Last Admin: 06/08/17 08:50 Dose: 650 mg Aspirin (Ecotrin) 325 mg PO DAILY [facility] Last Admin: 06/10/17 08:51 Dose: 325 mg Benzocaine/Menthol (Cepacol Sore Throat) 1 pedro luis PO Q3 PRN PRN Reason: Sore Throat Last Admin: 06/06/17 08:37 Dose: 1 pedro luis Cholecalciferol (Vitamin D) 2,000 intlu PO DAILY [facility] Last Admin: 06/10/17 08:53 Dose: 2,000 intlu Cyanocobalamin (Vitamin B12 1000 Mcg Tab) 1,000 mcg PO DAILY [facility] Last Admin: 06/10/17 08:51 Dose: 1,000 mcg Doxycycline Hyclate (Doryx) 100 mg PO Q12 [facility] PRN Reason: Protocol Last Admin: 06/10/17 08:52 Dose: 100 mg Famotidine (Pepcid) 20 mg PO DAILY@2100 [facility] Last Admin: 06/09/17 20:55 Dose: 20 mg Guaifenesin (Robitussin) 100 mg PO Q6 PRN PRN Reason: Cough Last Admin: 06/09/17 10:18 Dose: 100 mg Lactobacillus Acidophilus (Bacid Acidophilus) 1 cap PO BID [facility] Last Admin: 06/10/17 08:50 Dose: 1 cap Losartan Potassium (Cozaar) 25 mg PO DAILY [facility] Last Admin: 06/10/17 08:52 Dose: 25 mg Timolol Maleate (Timoptic 0.5% Ophth Soln) 1 drop OD QAM [facility] Last Admin: 06/10/17 08:53 Dose: 1 u - Labs Labs: 06/10/17 06:00 06/10/17 06:00 Assessment and Plan (1) Fracture of thumb, left, open Status: Acute (2) Fall Status: Acute (3) Head injury Status: Acute (4) Hypertension Status: Chronic
--- NOTE | 2017-06-10 11:55 | CP.PCM.PN ---
Subjective - Date & Time of Evaluation Date of Evaluation: 06/10/17 Time of Evaluation: 11:53 - Subjective Subjective: Patient seen and examined at bedside comfortable. Pain well controlled. Tolerating diet. No new complaints. Review of Systems - Review of Systems All systems: reviewed and no additional remarkable complaints except - Musculoskeletal Additional comments: as per HPI Objective - Vital Signs/Intake and Output Vital Signs (last 24 hours): Temp Pulse Resp BP Pulse Ox 97.3 F L 92 H 20 113/55 L 95 06/10/17 09:03 06/10/17 09:03 06/10/17 09:03 06/10/17 09:03 06/10/17 09:03 - Medications Medications: Current Medications Acetaminophen (Tylenol 325mg Tab) 650 mg PO Q6 PRN PRN Reason: Pain, Mild (1-3) Last Admin: 06/08/17 08:50 Dose: 650 mg Aspirin (Ecotrin) 325 mg PO DAILY [facility] Last Admin: 06/10/17 08:51 Dose: 325 mg Benzocaine/Menthol (Cepacol Sore Throat) 1 pedro luis PO Q3 PRN PRN Reason: Sore Throat Last Admin: 06/06/17 08:37 Dose: 1 pedro luis Cholecalciferol (Vitamin D) 2,000 intlu PO DAILY [facility] Last Admin: 06/10/17 08:53 Dose: 2,000 intlu Cyanocobalamin (Vitamin B12 1000 Mcg Tab) 1,000 mcg PO DAILY [facility] Last Admin: 06/10/17 08:51 Dose: 1,000 mcg Doxycycline Hyclate (Doryx) 100 mg PO Q12 [facility] PRN Reason: Protocol Last Admin: 06/10/17 08:52 Dose: 100 mg Famotidine (Pepcid) 20 mg PO DAILY@2100 [facility] Last Admin: 06/09/17 20:55 Dose: 20 mg Guaifenesin (Robitussin) 100 mg PO Q6 PRN PRN Reason: Cough Last Admin: 06/09/17 10:18 Dose: 100 mg Lactobacillus Acidophilus (Bacid Acidophilus) 1 cap PO BID [facility] Last Admin: 06/10/17 08:50 Dose: 1 cap Losartan Potassium (Cozaar) 25 mg PO DAILY [facility] Last Admin: 06/10/17 08:52 Dose: 25 mg Timolol Maleate (Timoptic 0.5% Ophth Soln) 1 drop OD QAM [facility] Last Admin: 06/10/17 08:53 Dose: 1 u Tramadol HCl (Ultram) 50 mg PO Q4 PRN PRN Reason: Pain, moderate (4-7) - Labs Labs: 06/10/17 06:00 06/10/17 06:00 - Constitutional Appears: No Acute Distress - Extremities Exam Additional comments: Right hand: hand in splint, splint taken down revealing thumb would clean and dry, no erythema or drainage, + thumb deformity, moderate tenderness secondary to injury, sensation intact MN/UN/RN, motor intact MN/UN/AIN/PIN, radial pulse intact LLE: no tenderness, no swelling, sensation intact SP/DP/TN, motor intact distally, pedal pulses intact, calves soft NT b/l - Psychiatric Exam Psychiatric exam: Normal Affect, Normal Mood - Skin Skin Exam: Normal Color Assessment and Plan (1) Fracture of thumb, left, open Assessment & Plan: -Dressings and splint changed, wound is clean and dry -continue to treat conservatively with immobilization -will d/w Dr. Gregory Status: Acute (2) Bone infarct of distal femur Assessment & Plan: -WBAT with platform walker Status: Chronic
--- NOTE | 2017-06-10 12:27 | CP.PCM.PN ---
Subjective - Date & Time of Evaluation Date of Evaluation: 06/10/17 Time of Evaluation: 10:00 - Subjective Subjective: Patient seen and examined at bedside. She reports feeling "itchy all over" and "my throat is tight" after administration of doxycycline. She has no other complaints today. No sob, cp, weakness, fever, chills. HD stable, afebrile, no increased work of breathing. Tolerating PT/OT well. NAD Objective - Vital Signs/Intake and Output Vital Signs (last 24 hours): Temp Pulse Resp BP Pulse Ox 97.3 F L 92 H 20 113/55 L 95 06/10/17 09:03 06/10/17 09:03 06/10/17 09:03 06/10/17 09:03 06/10/17 09:03 - Medications Medications: Current Medications Acetaminophen (Tylenol 325mg Tab) 650 mg PO Q6 PRN PRN Reason: Pain, Mild (1-3) Last Admin: 06/08/17 08:50 Dose: 650 mg Aspirin (Ecotrin) 325 mg PO DAILY [facility] Last Admin: 06/10/17 08:51 Dose: 325 mg Benzocaine/Menthol (Cepacol Sore Throat) 1 pedro luis PO Q3 PRN PRN Reason: Sore Throat Last Admin: 06/06/17 08:37 Dose: 1 pedro luis Cholecalciferol (Vitamin D) 2,000 intlu PO DAILY [facility] Last Admin: 06/10/17 08:53 Dose: 2,000 intlu Cyanocobalamin (Vitamin B12 1000 Mcg Tab) 1,000 mcg PO DAILY [facility] Last Admin: 06/10/17 08:51 Dose: 1,000 mcg Diphenhydramine HCl (Benadryl) 25 mg PO Q6 PRN PRN Reason: Itching / Pruritus Famotidine (Pepcid) 20 mg PO DAILY@2100 [facility] Last Admin: 06/09/17 20:55 Dose: 20 mg Guaifenesin (Robitussin) 100 mg PO Q6 PRN PRN Reason: Cough Last Admin: 06/09/17 10:18 Dose: 100 mg Lactobacillus Acidophilus (Bacid Acidophilus) 1 cap PO BID [facility] Last Admin: 06/10/17 08:50 Dose: 1 cap Losartan Potassium (Cozaar) 25 mg PO DAILY [facility] Last Admin: 06/10/17 08:52 Dose: 25 mg Timolol Maleate (Timoptic 0.5% Ophth Soln) 1 drop OD [facility]AM [facility] Last Admin: 06/10/17 08:53 Dose: 1 u Tramadol HCl (Ultram) 50 mg PO Q4 PRN PRN Reason: Pain, moderate (4-7) Trimethoprim/Sulfamethoxazole (Bactrim Ds Tab) 1 tab PO Q12 [facility] PRN Reason: Protocol - Labs Labs: 06/10/17 06:00 06/10/17 06:00 - Additional Findings Additional findings: Physical exam: Constitutional- cooperative, awake, alert Head- NCAT, PERRL. + facial ecchymosis improving Eye- PERRL, EOMI ENT- normal exam, MMM. Neck- normal inspection, supple, no JVD Respiratory- CTAB, no wheezes rales rhonchi Cardiovascular- RRR, +S1, +S2 no MRG GI/Abdominal- normal bowel sounds, soft, no mass, no hsm Skin- warm, dry Extremities Exam- Left hand cast in place. normal capillary refill, normal inspection Neurological Exam- alert, awake, oriented Psych- normal mood, normal affect Assessment and Plan - Assessment and Plan (Free Text) Plan: 86 y/o F with a PMHx of multiple CVA and TIA, and HTN, with bilateral leg weakness, s/p mechanical fall 5 days ago, admitted for rehabilitation and management of open L thumb open fracture. 1. Unstable gait / Weakness, bilateral leg at high risk for fall / Hx of multiple CVA episodes - Pt unable to perform ADL due to b/l leg weakness and L thumb fracture. - Physical therapy for muscle strengthening . - Fall precautions. - Aspirin 325mg daily. 2. Open fracture of L thumb - pt complaining of "rash" with clindamycin however none appreciated on physical exam. - No complaining of "throat tightness" and "itching all over" with doxycycline - Willl d/c doxycycline and start Bactrim DS as she has no history of sulfa allergy. - Benadryl PRN for itching - Pt is left-handed. - Follow up Orthopedics' recommendations. - Tramadol as pain management. 3. Head injury, acute - CT of head with NO intracranial hemorrhage. - Continue wound care of facial hematoma and ecchymosis - Fall precautions. 4. R femur infarct changes -XR R femur showed patchy sclerotic densities in distal femoral diaphysis that may be bone infarct. -XR R knee with NO acute displaced fracture nor dislocation. (speckled granular sclerotic chnages within the distal R femoral shaft poss bone infarct changes. MRI for poss enchondroma vs chondrosarcoma) - Follow orthopedics's recommendations. 5. Sayda-oral numbness -F/u neurologist Dr Harper's evaluation and recommendations. 6. Hypertension - C/w Losartan. - Monitor BP- stable 7. Prophylaxis - Pepcid as per Stress Ulcer prophylaxis. - Lovenox for DVT prophylaxis. - Lactobacillus PO, pro-biotic while on antibiotic.
[2017-06-10] MEDS: guaiFENesin 100 mg/5 ml Syrup UD PO PRN (20:29)
[2017-06-10] MEDS: Tmp-Smz 800 mg-160 mg DS Tab PO SCH (20:30)
[2017-06-11] MEDS: Lactobacillus Acidophilus 500 MU Cap PO SCH ×2 (08:28→16:55)
[2017-06-11] MEDS: Aspirin 325 mg EC Tablets PO SCH (08:29)
[2017-06-11] MEDS: Tmp-Smz 800 mg-160 mg DS Tab PO SCH ×2 (08:29→21:44)
[2017-06-11] MEDS: Cholecalciferol 1,000 INTLU TAB PO SCH (08:31)
[2017-06-11] MEDS ORDERED: Alum-Mag Hydrox-Simethicone Susp (30 mL) PO PRN (13:41)
[2017-06-12] MEDS: Lactobacillus Acidophilus 500 MU Cap PO SCH ×2 (08:16→16:19)
[2017-06-12] MEDS: Aspirin 325 mg EC Tablets PO SCH (08:18)
[2017-06-12] MEDS: Cholecalciferol 1,000 INTLU TAB PO SCH (08:18)
[2017-06-12] MEDS: Tmp-Smz 800 mg-160 mg DS Tab PO SCH ×2 (08:18→08:21)
--- NOTE | 2017-06-12 10:11 | CP.PCM.PN ---
Subjective - Date & Time of Evaluation Date of Evaluation: 06/12/17 Time of Evaluation: 08:15 - Subjective Subjective: Patient seen and examined at bedside comfortable. Pain is well controlled. OOB ambulating without difficulties. Patient complains of right knee pain and redness since yesterday which has slightly worsened today. Objective - Vital Signs/Intake and Output Vital Signs (last 24 hours): Temp Pulse Resp BP Pulse Ox 97.2 F L 78 20 134/64 98 06/12/17 07:42 06/12/17 08:18 06/12/17 07:42 06/12/17 08:18 06/12/17 07:42 - Medications Medications: Current Medications Acetaminophen (Tylenol 325mg Tab) 650 mg PO Q6 PRN PRN Reason: Pain, Mild (1-3) Last Admin: 06/08/17 08:50 Dose: 650 mg Al Hydrox/Mg Hydrox/Simethicone (Maalox Plus 30 Ml) 30 ml PO Q4 PRN PRN Reason: Indigestion / Heartburn Last Admin: 06/11/17 14:07 Dose: 30 ml Aspirin (Ecotrin) 325 mg PO DAILY [facility] Last Admin: 06/12/17 08:18 Dose: 325 mg Benzocaine/Menthol (Cepacol Sore Throat) 1 pedro luis PO Q3 PRN PRN Reason: Sore Throat Last Admin: 06/06/17 08:37 Dose: 1 pedro luis Cholecalciferol (Vitamin D) 2,000 intlu PO DAILY [facility] Last Admin: 06/12/17 08:18 Dose: 2,000 intlu Cyanocobalamin (Vitamin B12 1000 Mcg Tab) 1,000 mcg PO DAILY [facility] Last Admin: 06/12/17 08:18 Dose: 1,000 mcg Diphenhydramine HCl (Benadryl) 25 mg PO Q6 PRN PRN Reason: Itching / Pruritus Famotidine (Pepcid) 20 mg PO DAILY@2100 [facility] Last Admin: 06/11/17 21:44 Dose: 20 mg Guaifenesin (Robitussin) 100 mg PO Q6 PRN PRN Reason: Cough Last Admin: 06/10/17 20:29 Dose: 100 mg Lactobacillus Acidophilus (Bacid Acidophilus) 1 cap PO BID [facility] Last Admin: 06/12/17 08:16 Dose: 1 cap Losartan Potassium (Cozaar) 25 mg PO DAILY [facility] Last Admin: 06/12/17 08:18 Dose: 25 mg Timolol Maleate (Timoptic 0.5% Ophth Soln) 1 drop OD QAM [facility] Last Admin: 06/12/17 08:17 Dose: 1 u Tramadol HCl (Ultram) 50 mg PO Q4 PRN PRN Reason: Pain, moderate (4-7) Last Admin: 06/10/17 20:30 Dose: 50 mg Trimethoprim/Sulfamethoxazole (Bactrim Ds Tab) 1 tab PO Q12 [facility] PRN Reason: Protocol Last Admin: 06/12/17 08:21 Dose: Not Given - Labs Labs: 06/10/17 06:00 06/10/17 06:00 - Constitutional Appears: No Acute Distress - ENT Exam ENT Exam: Mucous Membranes Moist - Extremities Exam Additional comments: Right hand: hand in splint, splint taken down revealing thumb would clean and dry, no erythema or drainage, + thumb deformity,mild tenderness secondary to injury, sensation intact MN/UN/RN, motor intact MN/UN/AIN/PIN, radial pulse intact LLE: no tenderness, no swelling, sensation intact SP/DP/TN, motor intact distally, pedal pulses intact, calves soft NT b/l Right knee: positive swelling, erythema and warmth in the prepatellar region, positive tenderness, ROM 0-90, gross NVI, pedal pulses intact, compartments soft. - Psychiatric Exam Psychiatric exam: Normal Affect, Normal Mood Assessment and Plan (1) Fracture of thumb, left, open Assessment & Plan: -Dressings and splint changed, wound is clean and dry -continue to treat conservatively with immobilization -will d/w Dr. 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 Carranza for abx coverage -warm compress -will d/w attending Dr. Gregory Status: Acute
--- NOTE | 2017-06-12 10:21 | CP.PCM.DIS ---
Provider - Provider Date of Admission: 06/02/17 22:31 Attending physician: Carlyle Novoa MD Time Spent in preparation of Discharge (in minutes): 30 Diagnosis - Discharge Diagnosis (1) Prepatellar bursitis of right knee Status: Acute (2) Anxiety Status: Acute (3) Contusion Status: Acute (4) Dehydration Status: Acute Hospital Course - Lab Results Lab Results: Most Recent Lab Values WBC 5.5 K/uL (4.8-10.8) 06/10/17 06:00 RBC 4.71 Mil/uL (3.80-5.20) 06/10/17 06:00 Hgb 13.7 g/dL (12.0-16.0) 06/10/17 06:00 Hct 42.8 % (34.0-47.0) 06/10/17 06:00 MCV 90.8 fl (81.0-99.0) 06/10/17 06:00 MCH 29.0 pg (27.0-31.0) 06/10/17 06:00 MCHC 32.0 g/dL (33.0-37.0) L 06/10/17 06:00 RDW 13.8 % (11.5-14.5) 06/10/17 06:00 Plt Count 375 K/uL (130-400) D 06/10/17 06:00 Sodium 138 mmol/l (132-148) 06/10/17 06:00 Potassium 4.3 MMOL/L (3.6-5.0) 06/10/17 06:00 Chloride 98 mmol/L (98-107) 06/10/17 06:00 Carbon Dioxide 29 mmol/L (22-30) 06/10/17 06:00 Anion Gap 15 (10-20) 06/10/17 06:00 BUN 18 mg/dl (7-17) H 06/10/17 06:00 Creatinine 0.7 mg/dl (0.7-1.2) 06/10/17 06:00 Est GFR ( Amer) > 60 06/10/17 06:00 Est GFR (Non-Af Amer) > 60 06/10/17 06:00 Random Glucose 101 mg/dL (65-105) 06/10/17 06:00 Calcium 10.3 mg/dL (8.4-10.2) H 06/10/17 06:00 Total Bilirubin 0.5 mg/dl (0.2-1.3) 06/10/17 06:00 AST 26 U/L (14-36) 06/10/17 06:00 ALT 17 U/L (9-52) 06/10/17 06:00 Alkaline Phosphatase 66 U/L (38-126) 06/10/17 06:00 Total Protein 7.8 G/DL (6.3-8.2) 06/10/17 06:00 Albumin 4.1 g/dL (3.5-5.0) 06/10/17 06:00 Globulin 3.7 gm/dL (2.2-3.9) 06/10/17 06:00 Albumin/Globulin Ratio 1.1 (1.0-2.1) 06/10/17 06:00 C. difficile Ag & Toxin Negative (NEGATIVE) 06/11/17 14:45 - Hospital Course Hospital Course: 86 y/o F with a PMHx of multiple CVA and TIA, and HTN, with bilateral leg weakness, s/p mechanical fall 5 days ago, admitted for rehabilitation and management of open L thumb open fracture. Participated with PT stable for discharge to [facility]. HD stable, NAD. Follow up PCP one week. 1. Unstable gait / Weakness, bilateral leg at high risk for fall / Hx of multiple CVA episodes - Pt unable to perform ADL due to b/l leg weakness and L thumb fracture. - Physical therapy for muscle strengthening . - Fall precautions. - Aspirin 325mg daily. 2. Open fracture of L thumb - pt complaining of "rash" with clindamycin however none appreciated on physical exam. - No complaining of "throat tightness" and "itching all over" with doxycycline - Willl d/c doxycycline and start Bactrim DS as she has no history of sulfa allergy. - Benadryl PRN for itching - Pt is left-handed. - Follow up Orthopedics' recommendations. - Tramadol as pain management. 3. Head injury, acute - CT of head with NO intracranial hemorrhage. - Continue wound care of facial hematoma and ecchymosis - Fall precautions. 4. R femur infarct changes -XR R femur showed patchy sclerotic densities in distal femoral diaphysis that may be bone infarct. -XR R knee with NO acute displaced fracture nor dislocation. (speckled granular sclerotic chnages within the distal R femoral shaft poss bone infarct changes. MRI for poss enchondroma vs chondrosarcoma) - Follow orthopedics's recommendations. 5. Sayda-oral numbness -F/u neurologist Dr Harper's evaluation and recommendations. 6. Hypertension - C/w Losartan. - Monitor BP- stable 7. Prophylaxis - Pepcid as per Stress Ulcer prophylaxis. - Lovenox for DVT prophylaxis. - Lactobacillus PO, pro-biotic while on antibiotic. Discharge Exam - Head Exam Head Exam: ATRAUMATIC, NORMOCEPHALIC - Eye Exam Eye Exam: EOMI, Normal appearance - ENT Exam ENT Exam: Mucous Membranes Moist, Normal Oropharynx - Respiratory Exam Respiratory Exam: Clear to PA & Lateral, NORMAL BREATHING PATTERN - Cardiovascular Exam Cardiovascular Exam: RRR, +S1, +S2 - GI/Abdominal Exam GI & Abdominal Exam: Normal Bowel Sounds, Unremarkable - Extremities Exam Extremities exam: normal capillary refill, pedal pulses present - Back Exam Back exam: absent: CVA tenderness (L), CVA tenderness (R) - Neurological Exam Neurological exam: Alert, Oriented x3 - Psychiatric Exam Psychiatric exam: Normal Affect, Normal Mood - Skin Skin Exam: Dry, Warm Discharge Plan - Discharge Medications Prescriptions: Sulfamethoxazole/Trimethoprim [Bactrim DS Tab] 1 tab PO Q12 #20 tab - Follow Up Plan Condition: GOOD Disposition: TRANSF TO SNF
[2017-06-12] MEDS ORDERED: Lidocaine 1% Inj (20ml) ONE (11:23)
[2017-06-12] MEDS ORDERED: Lidocaine 1% Inj (20ml) IJ ONE (11:25)
--- NOTE | 2017-06-12 16:09 | CP.PCM.PN ---
Subjective - Date & Time of Evaluation Date of Evaluation: 06/12/17 Time of Evaluation: 16:07 - Subjective Subjective: The patient was seen on rounds in the Transitional care unit earlier in the afternoon. She is seated at the edge of the bed conversing with a visitor. Her mood is good and her memory is intact. Her right knee is significantly improved. Her facial ecchymosis is gradually dissipating. The left hand is wrapped and the thumb is immobilized. She will be transferred to a longer care facility at this time, until she is able to carry out ADLs independently. Objective - Vital Signs/Intake and Output Vital Signs (last 24 hours): Temp Pulse Resp BP Pulse Ox 97.2 F L 78 20 134/64 98 06/12/17 07:42 06/12/17 08:18 06/12/17 07:42 06/12/17 08:18 06/12/17 07:42 - Medications Medications: Current Medications Acetaminophen (Tylenol 325mg Tab) 650 mg PO Q6 PRN PRN Reason: Pain, Mild (1-3) Last Admin: 06/08/17 08:50 Dose: 650 mg Al Hydrox/Mg Hydrox/Simethicone (Maalox Plus 30 Ml) 30 ml PO Q4 PRN PRN Reason: Indigestion / Heartburn Last Admin: 06/11/17 14:07 Dose: 30 ml Aspirin (Ecotrin) 325 mg PO DAILY [facility] Last Admin: 06/12/17 08:18 Dose: 325 mg Benzocaine/Menthol (Cepacol Sore Throat) 1 pedro luis PO Q3 PRN PRN Reason: Sore Throat Last Admin: 06/06/17 08:37 Dose: 1 pedro luis Cholecalciferol (Vitamin D) 2,000 intlu PO DAILY [facility] Last Admin: 06/12/17 08:18 Dose: 2,000 intlu Cyanocobalamin (Vitamin B12 1000 Mcg Tab) 1,000 mcg PO DAILY [facility] Last Admin: 06/12/17 08:18 Dose: 1,000 mcg Diphenhydramine HCl (Benadryl) 25 mg PO Q6 PRN PRN Reason: Itching / Pruritus Famotidine (Pepcid) 20 mg PO DAILY@2100 [facility] Last Admin: 06/11/17 21:44 Dose: 20 mg Guaifenesin (Robitussin) 100 mg PO Q6 PRN PRN Reason: Cough Last Admin: 06/10/17 20:29 Dose: 100 mg Lactobacillus Acidophilus (Bacid Acidophilus) 1 cap PO BID [facility] Last Admin: 06/12/17 08:16 Dose: 1 cap Losartan Potassium (Cozaar) 25 mg PO DAILY [facility] Last Admin: 06/12/17 08:18 Dose: 25 mg Timolol Maleate (Timoptic 0.5% Ophth Soln) 1 drop OD QAM [facility] Last Admin: 06/12/17 08:17 Dose: 1 u Tramadol HCl (Ultram) 50 mg PO Q4 PRN PRN Reason: Pain, moderate (4-7) Last Admin: 06/12/17 14:34 Dose: 50 mg Trimethoprim/Sulfamethoxazole (Bactrim Ds Tab) 1 tab PO Q12 JASIEL PRN Reason: Protocol Last Admin: 06/12/17 08:21 Dose: Not Given - Labs Labs: 06/10/17 06:00 06/10/17 06:00 Assessment and Plan (1) Fracture of thumb, left, open Status: Acute (2) Fall Status: Acute (3) Head injury Status: Acute (4) Hypertension Status: Chronic
[2017-06-12 16:25] VITALS: BP 116/54; PULSE 92; TEMP 97.1; O2SAT 97
== END 2017-06-12 17:46 | DRG 561 ==
LOC: H.TCU 22:31
PROVIDERS: ADMIT Internal Medicine; ATTEND Internal Medicine
PROC: 3E03329 Introduction of Other Anti-infective into Peripheral Vein, Percutaneous Approach (ICD-10-PCS; principal; 2017-06-02)
PROC: F07K6FZ Therapeutic Exercise Treatment of Musculoskeletal System - Upper Back / Upper Extremity using Assistive, Adaptive, Supportive or Protective Equipment (ICD-10-PCS; 2017-06-02)
PROC: F07Z9FZ Gait Training/Functional Ambulation Treatment using Assistive, Adaptive, Supportive or Protective Equipment (ICD-10-PCS; 2017-06-02)
PROC: F08Z4FZ Home Management Treatment using Assistive, Adaptive, Supportive or Protective Equipment (ICD-10-PCS; 2017-06-03)
DX: S62.522D Displaced fracture of distal phalanx of left thumb, subsequent encounter for fracture with routine healing (principal); D51.8 Other vitamin B12 deficiency anemias; R26.81 Unsteadiness on feet; R53.1 Weakness; I73.9 Peripheral vascular disease, unspecified; E78.00 Pure hypercholesterolemia, unspecified; I10 Essential (primary) hypertension; F41.9 Anxiety disorder, unspecified; M70.41 Prepatellar bursitis, right knee; Z91.81 History of falling; Z86.73 Personal history of transient ischemic attack (TIA), and cerebral infarction without residual deficits; Z85.6 Personal history of leukemia; Z96.641 Presence of right artificial hip joint; Z92.21 Personal history of antineoplastic chemotherapy; Z87.891 Personal history of nicotine dependence; Z79.82 Long term (current) use of aspirin; Z86.718 Personal history of other venous thrombosis and embolism; Z88.2 Allergy status to sulfonamides; Z88.6 Allergy status to analgesic agent; Z88.1 Allergy status to other antibiotic agents; Z88.0 Allergy status to penicillin

== ENCOUNTER 2017-07-26 12:54 | Observation (INO) | payer MEDICARE ==
[2017-07-26 12:54] VITALS: BMI 27.2
[2017-07-26] MEDS ORDERED: Albuterol-Ipratrop 3 mg / 0.5 (3 ml) UD INH STA (13:38)
--- NOTE | 2017-07-26 14:19 | ED PDOC ---
HPI: SOB/CHF/COPD Time Seen by Provider: 07/26/17 13:37 Chief Complaint (Nursing): Shortness Of Breath Chief Complaint (Provider): Shortness Of Breath History Per: Patient History/Exam Limitations: no limitations Onset/Duration Of Symptoms: Other (~ 10 days) Current Symptoms Are (Timing): Still Present Initiating Event: Upper Respiratory Illness Quality: Tightness Exacerbating Factor(s): Coughing Severity: Moderate Associated Symptoms: Chills, Chest Pain. denies: Fever, Sweating Similar Symptoms Previously: no Additional Complaint(s): 87 y/o male presents to the ED with progressive shortness of breath and chest pain. Patient states that she has difficulty breathing (not related to exertion ) x 10 days. Also describes extreme malaise, chills, weakness and loss of appetite. Patient is bed bound as results of these symptoms x 1 week. Patient states she is severely congested and voice changes are noted. Patient was recently admitted in May for traumatic fall and had been discharged, resting at home with outpatient physical therapy. Patient has been so weak that she has no been able to attend to her twice a week physical therapy this week; Patient has a history of DVT and leg is on Aspirin daily. pt also describes left lateral leg tightness/pain Pt denies fever/sweats Pt denies palpitations Pt denies abdominal pain/nausea/vomiting/urinary or bowel changes pt denied new fall/trauma, no travel ? sick contact pt is here for further evaluation pt's without other complaints pt states she finished a 5 day course of Z-ema prescribed by local urgent care center, last dose was yesterday PMD: Samuel Vargas MD - Risk Factors PE Risk Factors: Pos: Previous DVT Past Medical History Reviewed: Historical Data, Nursing Documentation, Vital Signs Vital Signs: Last Vital Signs Temp 97 F L 07/26/17 13:16 Pulse 86 07/26/17 13:16 Resp 18 07/26/17 13:26 BP 139/104 H 07/26/17 13:16 Pulse Ox 98 07/26/17 15:32 - Medical History PMH: Anemia (B12 deficiency), Anxiety, Arthritis, CVA, Diabetes, Deep Vein Thrombosis, Fractures (l thumb), HTN, Seizures, TIA (x28) Denies: HIV, Chronic Kidney Disease - Family History Family History: States: Hypertension - Living Arrangements Living Arrangements: Alone - Social History Current smoker - smoking cessation education provided: No (former smoker) Ex-Smoker (has not smoked in the last 12 months): Yes Alcohol: None Drugs: Denies - Immunization History Hx Influenza Vaccination: No Hx Pneumococcal Vaccination: No - Home Medications Home Medications: Ambulatory Orders Medication Instructions Recorded Cholecalciferol [Vitamin D 1000 IU] 2,000 unit PO DAILY 08/26/16 Losartan [Cozaar] 25 mg PO DAILY 08/26/16 Timolol 0.5% Ophth [Timoptic 0.5% 1 drop EACHEYE QAM 08/26/16 Ophth Soln] Aspirin [Aspirin EC] 325 mg PO DAILY 10/14/16 Cyanocobalamin (Vitamin B-12) 1,000 mcg PO DAILY 05/30/17 [Vitamin B-12] Acetaminophen [Tylenol 325mg tab] 650 mg PO Q6 PRN tab 06/02/17 Famotidine [Pepcid] 20 mg PO DAILY #1 tab 06/02/17 traMADol [Ultram] 50 mg PO Q6 PRN tab 06/02/17 Sulfamethoxazole/Trimethoprim 1 tab PO Q12 #20 tab 06/12/17 [Bactrim DS Tab] traMADol [Ultram] 50 mg PO Q4 PRN #30 tab 06/12/17 - Allergies Allergies/Adverse Reactions: Allergies Allergy/AdvReac Type Severity Reaction Status Date / Time amlodipine besylate Allergy SWELLING Verified 06/12/17 14:32 [From Norvasc] ciprofloxacin [From Cipro] Allergy RASH Verified 06/12/17 14:32 ciprofloxacin HCl Allergy RASH Verified 06/12/17 14:32 [From Cipro] codeine Allergy RASH Verified 06/12/17 14:32 dipyridamole Allergy SWELLING Verified 06/12/17 14:32 gabapentin [From Neurontin] Allergy SWELLING Verified 06/12/17 14:32 lisinopril Allergy RASH Verified 06/12/17 14:32 metoprolol tartrate Allergy SWELLING Verified 06/12/17 14:32 [From Lopressor] metronidazole [From Flagyl] Allergy RASH Verified 06/12/17 14:32 Penicillins Allergy RASH Verified 06/12/17 14:32 tetanus toxoid, adsorbed Allergy RASH Verified 06/12/17 14:32 Curb-65 Severity Score - CURB-65 Severity Score Confusion: No Respiratory Rate greater than/equal to 30: No Systolic BP <90 or Diastolic BP less than/equal 60mmHg: No Age >64: Yes Curb-65 Score: 1 Percentage 30-day mortality: 2.7% Wells Criteria for PE - Wells Criteria for Pulmonary Embolism Clinical Signs and Symptoms of DVT: No P.E is #1 Diagnosis, or Equally Likely: No Heart Rate >100: No Immobilization at least 3 days;Surgery previous 4 weeks: No Previous, objectively diagnosed PE or DVT: Yes Hemoptysis: No Malignancy w/treatment within 6 months, or palliative: No Total Score: 1.5 Review of Systems ROS Statement: Except As Marked, All Systems Reviewed And Found Negative (As per HPI, otherwise negative) Constitutional: Positive for: Chills, Weakness, Malaise, Other (loss of appetite ). Negative for: Fever, Sweats Cardiovascular: Positive for: Chest Pain. Negative for: Palpitations Respiratory: Positive for: Shortness of Breath Gastrointestinal: Negative for: Nausea, Vomiting, Abdominal Pain Genitourinary Female: Negative for: Dysuria, Hematuria Musculoskeletal: Negative for: Neck Pain, Back Pain Skin: Positive for: Rash Neurological: Positive for: Weakness Physical Exam - Reviewed Nursing Documentation Reviewed: Yes Vital Signs Reviewed: Yes (elevated DBP) - Physical Exam Appears: Positive for: Well, Non-toxic, No Acute Distress, Uncomfortable (alert/ awake, uncomfortable, resting in bed, GCS = 15, oriented x 3, cooperative, NAD) Head Exam: Positive for: ATRAUMATIC, NORMAL INSPECTION, NORMOCEPHALIC (mild bi- temporal wasting) Skin: Positive for: Normal Color (cap refill < 1sec, no ulcerations, no petechiae, no rashes), Warm Eye Exam: Positive for: Normal appearance, EOMI, PERRL, Other (visual field intact b/l, no nystagmus, no photophobia) ENT: Positive for: Normal ENT Inspection, Other (uvula/tongue are midline, no drooling/stridor, fair dentitions) Neck: Positive for: Normal, Painless ROM, Supple, Trachea Midline Cardiovascular/Chest: Positive for: Regular Rate, Rhythm, Other (+S1, +S2) Respiratory: Positive for: Normal Breath Sounds, Other (coarse breath sounds noted b/l, decr aerations noted b/l, no wheezing/rales/rhonchi; + mild tachypenia, no belly retractions) Gastrointestinal/Abdominal: Positive for: Normal Exam, Bowel Sounds, Soft, Other (well nourished female, no focal tenderness, no walden's sign, no mcburney 's point tenderness) Back: Positive for: Normal Inspection. Negative for: L CVA Tenderness, R CVA Tenderness Extremity: Positive for: Normal ROM, Other (faintly +1/5 pitting edema noted left >> right; neurovasc intact b/l, strength 5/5 grossly intact in all limbs) Neurologic/Psych: Positive for: Alert, alterations workroom clerk II-XII, Oriented. Negative for: Motor/Sensory Deficits, Facial Droop - Laboratory Results Result Diagrams: 07/26/17 13:50 07/26/17 13:50 - ECG ECG: Positive for: Interpreted By Me Interpretation Of ECG: NSR at 85 bpm, normal axis, no ectopy, poor baseline, no ST-T changes, NORMAL EKG; no changes compare with old ekg 05/2017 O2 Sat by Pulse Oximetry: 98 (RA) Pulse Ox Interpretation: Normal - Radiology X-Ray: Viewed By Me, Read By Radiologist - Progress ED Course And Treament: 2:50pm - pt is comfortable currently pt is awaiting lab results 3:25pm - pt felt improved lung re-exam: CTA b/l, no w/r/r, no accessory muscle use noted, no tachypenia pt is made aware of her medical results agrees with admission/observation Re-evaluation Time: 15:08 Condition: Improved - Physician Consult Information Time Consulting Physican Contacted: 15:45 Physician Contacted: Jamie Riojas Outcome Of Conversation: made aware of pt's ed presentation/symptoms/complaints, ed findings/txt/mgt; agrees with ED mgt, suggests admission/observation placement, and ok with abx coverage Nebulizer Treatments/Peak Flow - Duonebs Number of Bronchodilator Doses given?: 3 - Steroid Treatment Steroid: Oral - Clinical Response Clinical Response: Improved Medical Decision Making Medical Decision Making: Time: 13:37 Initial Impression: SOB, congestion, epigastric/chest pain, weakness/malaise I have consider all the differential diagnosis regarding pt's chief medical complaints/clinical findings, including but are not limited to: r/o CHF/ACS; weakness/malaise Plan: VBG EKG BNP CMP Lipase Magnesium Phosphorous Thyroid stimulating hormone Troponin I CBC w/ differential PTT Prothrombin time Chest x-ray Albuterol/Ipratropium 9ml INH Aspirin 325mg PO Prednisone 60mg PO IV insertion (saline lock) Nebulizer treatment Peak floe pre/post tx Influenza A B Rapid strep group Urinalysis US duplex lower extremity Reevaluation Scribe Attestation: Documented by Ivon Perez acting as a scribe for Tino Holloway MD. Scribe Attestation: All medical record entries made by the Scribe were at my direction and personally dictated by me. I have reviewed the chart and agree that the record accurately reflects my personal performance of the history, physical exam, medical decision making, and the department course for this patient. I have also personally directed, reviewed, and agree with the discharge instructions and disposition. Disposition - Clinical Impression Clinical Impression: Bronchitis, acute, with bronchospasm, Weakness generalized, Chest pain with minimal risk of acute coronary syndrome - Patient ED Disposition Is Patient to be Admitted: Yes Discussed With : Jamie Riojas Doctor Will See Patient In The: Hospital Counseled Patient/Family Regarding: Studies Performed, Diagnosis, Rx Given - Disposition Disposition Time: 15:45 Condition: STABLE Instructions: Weakness (ED) Forms: [employer] (Serbian) - Pt Status Changed To: Hospital Disposition Of: Observation
[2017-07-26 14:21] LABS: VENOUS BLOOD GAS BASE EXCESS 5.3 mmol/L (0.0-2.0); VENOUS BLOOD GAS PCO2 54 mmHg (40-60); VENOUS BLOOD GAS PO2 25 mm/Hg (30-55); VENOUS BLOOD PH 7.38 (7.32-7.43)
[2017-07-26 14:26] LABS: BASO # 0.1 K/uL (0.0-0.2); BASO % 1.3 % (0.0-2.0); EOS # 0.1 K/uL (0.0-0.7); EOS % 0.9 % (0.0-4.0); HEMOGLOBIN 13.4 g/dL (12.0-16.0); LYMPH # 1.4 K/uL (1.0-4.3); LYMPH % 21.7 % (20.0-40.0); MEAN CELL VOLUME 88.9 fl (81.0-99.0); MEAN CORPUSCULAR HEMOGLOBIN 29.5 pg (27.0-31.0); MEAN CORPUSCULAR HGB CONC 33.2 g/dL (33.0-37.0); MEAN PLATELET VOLUME 8.7 fl (7.2-11.7); MONO # 0.6 K/uL (0.0-0.8); MONO % 9.7 % (0.0-10.0); NEUT # 4.4 K/uL (1.8-7.0); NEUT % 66.4 % (50.0-75.0); NRBC % 0.1 % (0.0-0.0); RBC 4.54 Mil/uL (3.80-5.20); RED CELL DISTRIBUTION WIDTH 13.9 % (11.5-14.5); WHITE BLOOD COUNT 6.6 K/uL (4.8-10.8)
[2017-07-26 14:39] LABS: INR 1.1 (0.9-1.2); PARTIAL THROMBOPLASTIN TIME 28.4 Seconds (25.6-37.1)
[2017-07-26 14:52] LABS: ALB/GLOB RATIO 1.1 (1.0-2.1); ALBUMIN 3.7 g/dL (3.5-5.0); ALT/SGPT 26 U/L (9-52); AST/SGOT 21 U/L (14-36); BLOOD UREA NITROGEN 17 mg/dl (7-17); CALCIUM 10.4 mg/dL (8.4-10.2); GFR AFRICAN-AMERICAN > 60; GFR NON-AFRICAN AMERICAN > 60; LIPASE 302 U/L (23-300)
[2017-07-26 15:14] LABS: B-TYPE NATRIURETIC PEPTIDE 271 pg/ml (0-900)
[2017-07-26] MEDS ORDERED: cefTRIAXone (Rocephin) 1 gm Inj ONE (15:55)
[2017-07-26] MEDS ORDERED: Azithromycin 500 MG in Sodium Chloride 0.9% 250 ML IVPB ONE (16:00)
--- NOTE | 2017-07-26 16:17 | US ---
PROCEDURE: Bilateral lower extremity venous duplex Doppler. HISTORY: History of left-sided DVT, currently not on anticoagulation COMPARISON: None available. TECHNIQUE: Bilateral common femoral, superficial femoral, popliteal and posterior tibial veins were evaluated. Flow was assessed with color Doppler, compressibility, assessment of phasic flow and augmentation response. FINDINGS: COMMON FEMORAL VEIN: Right CFV: Unremarkable. Left CFV: Unremarkable. SUPERFICIAL FEMORAL VEIN: Right SFV: Unremarkable. Left SFV: Unremarkable. POPLITEAL VEIN: Right Popliteal: Unremarkable. Left Popliteal: Unremarkable. POSTERIOR TIBIAL VEIN: Right PTV: Unremarkable. Left PTV: Unremarkable. OTHER FINDINGS: None. IMPRESSION: No evidence of deep venous thrombosis.
--- NOTE | 2017-07-26 16:22 | RAD ---
HISTORY: Shortness of breath. Tightness. COMPARISON: Comparison chest dated 05/30/2017. The TECHNIQUE: Chest PA and lateral FINDINGS: LUNGS: Mild bibasilar atelectasis and/or scarring changes left greater than right. . There may also be some mild pleural thickening left CP angle region. . PLEURA: No significant pleural effusion identified. No pneumothorax apparent. CARDIOVASCULAR: Heart size is upper limits of normal. Aorta is slightly ectatic and uncoiled. OSSEOUS STRUCTURES: Mild multilevel degenerative spondylosis of the thoracic spine. Minor localized dextroscoliosis centered in the lower thoracic region. VISUALIZED UPPER ABDOMEN: Normal. OTHER FINDINGS: None. IMPRESSION: Mild bibasilar atelectasis and/or scarring left greater than right. Suspect the localized pleural thickening left CP angle region as well.
[2017-07-26 16:38] LABS: SQUAMOUS EPITHIAL 2 /hpf (0-5); URINE BACTERIA RARE (<OCC); URINE BILIRUBIN NEGATIVE (NEGATIVE); URINE BLOOD NEGATIVE (NEGATIVE); URINE CLARITY SLIGHTY-CLOUDY (Clear); URINE COLOR YELLOW (YELLOW); URINE GLUCOSE (UA) NEG (Normal); URINE LEUKOCYTE ESTERASE TRACE Leu/uL (Negative); URINE PROTEIN 30 mg/dL (NEGATIVE); URINE UROBILINOGEN 0.2-1.0 mg/dL (0.2-1.0)
--- NOTE | 2017-07-26 16:38 | CP.PCM.HP ---
History of Present Illness - History of Present Illness History of Present Illness: 87 yo female with history of HTN, DVTs of the left leg (4x) and CVA (2X) came in because of SOB associated with coughing and tightness of the chest since 10 days ago. Patient had just came out of a rehab facility 10 days ago and has been bed bound and weak since then. She was seen at an urgent care and was prescribed Z-ema but did not improved even after consuming the whole ema. Denied chest pain, fever, chills, nausea or vomiting. She claimed improvement after receiving 3 doses of Duoneb via nebulizer. Present on Admission - Present on Admission Any Indicators Present on Admission: Yes History of DVT/PE: Yes History of Uncontrolled Diabetes: No Urinary Catheter: No Decubitus Ulcer Present: No Review of Systems - Review of Systems All systems: reviewed and no additional remarkable complaints except (aside from those mentioned above, 12 point system review were negative by me) Past Patient History - Past Medical History & Family History Past Medical History?: Yes Pertinent Family History: Mother had CVA, Father had Brain Tumor - Past Social History Smoking Status: Former Smoker Alcohol: Occasional Drugs: Denies Home Situation {Lives}: Alone - CARDIAC Hx Hypertension: Yes - PULMONARY Hx Respiratory Disorders: No - NEUROLOGICAL Hx Seizures: Yes Hx Transient Ischemic Attacks (TIA): Yes (x28) - HEENT Hx HEENT Problems: No - RENAL Hx Chronic Kidney Disease: No - ENDOCRINE/METABOLIC Other/Comment: hypoparathyroidism - HEMATOLOGICAL/ONCOLOGICAL Hx Anemia: Yes (B12 deficiency) Hx Human Immunodeficiency Virus (HIV): No - INTEGUMENTARY Hx Dermatological Problems: No - MUSCULOSKELETAL/RHEUMATOLOGICAL Hx Arthritis: Yes Hx Fractures: Yes (l thumb) - GASTROINTESTINAL Hx Gastrointestinal Disorders: No - GENITOURINARY/GYNECOLOGICAL Hx Genitourinary Disorders: No - PSYCHIATRIC Hx Anxiety: Yes - SURGICAL HISTORY Hx Breast Biopsy: Yes Hx Orthopedic Surgery: Yes (RT HIP REPLACEMENT, 1988) Other/Comment: LEFT BREAST BIOPSY WITH CLIP 12 YEARS AGO - ANESTHESIA Hx Anesthesia: Yes Hx Anesthesia Reactions: No Hx Malignant Hyperthermia: No Meds Allergies/Adverse Reactions: Allergies Allergy/AdvReac Type Severity Reaction Status Date / Time amlodipine besylate Allergy SWELLING Verified 06/12/17 14:32 [From Norvasc] ciprofloxacin [From Cipro] Allergy RASH Verified 06/12/17 14:32 ciprofloxacin HCl Allergy RASH Verified 06/12/17 14:32 [From Cipro] codeine Allergy RASH Verified 06/12/17 14:32 dipyridamole Allergy SWELLING Verified 06/12/17 14:32 gabapentin [From Neurontin] Allergy SWELLING Verified 06/12/17 14:32 lisinopril Allergy RASH Verified 06/12/17 14:32 metoprolol tartrate Allergy SWELLING Verified 06/12/17 14:32 [From Lopressor] metronidazole [From Flagyl] Allergy RASH Verified 06/12/17 14:32 Penicillins Allergy RASH Verified 06/12/17 14:32 tetanus toxoid, adsorbed Allergy RASH Verified 06/12/17 14:32 Physical Exam - Constitutional Appears: No Acute Distress - Head Exam Head Exam: ATRAUMATIC - Eye Exam Eye Exam: absent: Scleral icterus - ENT Exam ENT Exam: Mucous Membranes Moist - Neck Exam Neck exam: Negative for: Meningismus - Respiratory Exam Respiratory Exam: absent: Rales, Rhonchi, Wheezes, Respiratory Distress - Cardiovascular Exam Cardiovascular Exam: REGULAR RHYTHM, +S1, +S2 - GI/Abdominal Exam GI & Abdominal Exam: Soft. absent: Tenderness - Rectal Exam Rectal Exam: Deferred - Extremities Exam Extremities exam: Negative for: calf tenderness, tenderness - Back Exam Back exam: absent: tenderness - Neurological Exam Neurological exam: Alert, Oriented x3 - Psychiatric Exam Psychiatric exam: Normal Affect - Skin Skin Exam: Dry, Intact Results - Vital Signs Recent Vital Signs: Last Vital Signs Temp 97 F L 07/26/17 13:16 Pulse 86 07/26/17 13:16 Resp 18 07/26/17 13:26 BP 139/104 H 07/26/17 13:16 Pulse Ox 98 07/26/17 15:56 - Labs Result Diagrams: 07/26/17 13:50 07/26/17 13:50 Labs: Laboratory Results - last 24 hr 07/26/17 07/26/17 07/26/17 13:39 13:50 13:50 WBC 6.6 RBC 4.54 Hgb 13.4 Hct 40.4 MCV 88.9 MCH 29.5 MCHC 33.2 RDW 13.9 Plt Count 310 MPV 8.7 Neut % (Auto) 66.4 Lymph % (Auto) 21.7 [place] % (Auto) 9.7 Eos % (Auto) 0.9 Baso % (Auto) 1.3 Neut # (Auto) 4.4 Lymph # (Auto) 1.4 [place] # (Auto) 0.6 Eos # (Auto) 0.1 Baso # (Auto) 0.1 PT INR APTT pO2 25 L VBG pH 7.38 VBG pCO2 54 VBG HCO3 27.7 VBG Total CO2 33.6 H VBG O2 Sat (Calc) 51.3 VBG Base Excess 5.3 H VBG Potassium 3.9 Sodium 137.0 141 Chloride 106.0 102 Glucose 102 Lactate 1.4 FiO2 21.0 Potassium 4.0 Carbon Dioxide 28 Anion Gap 15 BUN 17 Creatinine 0.6 L Est GFR ( Amer) > 60 Est GFR (Non-Af Amer) > 60 Random Glucose 99 Calcium 10.4 H Phosphorus 3.3 Magnesium 2.0 Total Bilirubin 0.5 AST 21 ALT 26 Alkaline Phosphatase 51 Troponin I < 0.0120 NT-Pro-B Natriuret Pep 271 Total Protein 7.1 Albumin 3.7 Globulin 3.4 Albumin/Globulin Ratio 1.1 Lipase 302 H TSH 3rd Generation 0.76 Venous Blood Potassium 3.9 Influenza Typ A,B (EIA) Grp A Beta Strep Ag 07/26/17 07/26/17 07/26/17 13:50 13:50 13:50 WBC RBC Hgb Hct MCV MCH MCHC RDW Plt Count MPV Neut % (Auto) Lymph % (Auto) [place] % (Auto) Eos % (Auto) Baso % (Auto) Neut # (Auto) Lymph # (Auto) [place] # (Auto) Eos # (Auto) Baso # (Auto) PT 12.0 INR 1.1 APTT 28.4 pO2 VBG pH VBG pCO2 VBG HCO3 VBG Total CO2 VBG O2 Sat (Calc) VBG Base Excess VBG Potassium Sodium Chloride Glucose Lactate FiO2 Potassium Carbon Dioxide Anion Gap BUN Creatinine Est GFR ( Amer) Est GFR (Non-Af Amer) Random Glucose Calcium Phosphorus Magnesium Total Bilirubin AST ALT Alkaline Phosphatase Troponin I NT-Pro-B Natriuret Pep Total Protein Albumin Globulin Albumin/Globulin Ratio Lipase TSH 3rd Generation Venous Blood Potassium Influenza Typ A,B (EIA) Negative for flu a/b Grp A Beta Strep Ag Negative Assessment & Plan - Assessment and Plan (Free Text) Assessment: 87 yo female with history of HTN, DVTs of the left leg (4x) and CVA (2X) came in because of SOB associated with coughing and tightness of the chest since 10 days ago. Patient had just came out of a rehab facility 10 days ago and has been bed bound and weak since then. She was seen at an urgent care and was prescribed Z-ema but did not improved even after consuming the whole ema. Denied chest pain, fever, chills, nausea or vomiting. She claimed improvement after receiving 3 doses of Duoneb via nebulizer. 1. COPD patient was noted wheezing with SOB as per ER nurse and MD when seen lungs presently clear without wheezing continue Duoneb q 4hrs prn Advair 1 puff q 12hrs received PO Prednisone 60mg in the ER 2. HTN BP stable on Losartan 25mg PO daily 3. DVT prophylaxis Lovenox 40mg SC daily
[2017-07-26] MEDS ORDERED: Albuterol-Ipratrop 3 mg / 0.5 (3 ml) UD INH PRN ×2 (17:16→19:53)
[2017-07-26] MEDS ORDERED: Levalbuterol 0.63 MG/3 ML Inhal Soln UD INH PRN (21:27)
[2017-07-27 08:21] LABS: BASO % 0.4 % (0.0-2.0); HEMOGLOBIN 12.4 g/dL (12.0-16.0); LYMPH # 0.8 K/uL (1.0-4.3); LYMPH % 12.8 % (20.0-40.0); MEAN CELL VOLUME 88.9 fl (81.0-99.0); MEAN CORPUSCULAR HEMOGLOBIN 29.9 pg (27.0-31.0); MEAN CORPUSCULAR HGB CONC 33.7 g/dL (33.0-37.0); MEAN PLATELET VOLUME 9.1 fl (7.2-11.7); MONO # 0.4 K/uL (0.0-0.8); MONO % 6.5 % (0.0-10.0); NEUT % 80.3 % (50.0-75.0); RBC 4.14 Mil/uL (3.80-5.20); RED CELL DISTRIBUTION WIDTH 13.7 % (11.5-14.5); WHITE BLOOD COUNT 6.3 K/uL (4.8-10.8)
[2017-07-27 08:22] LABS: BLOOD UREA NITROGEN 15 mg/dl (7-17); CALCIUM 10.2 mg/dL (8.4-10.2); GFR AFRICAN-AMERICAN > 60; GFR NON-AFRICAN AMERICAN > 60
[2017-07-27] MEDS: Aspirin 325 mg EC Tablets PO SCH (09:53)
[2017-07-27] MEDS: Enoxaparin 40 mg Syringe SC SCH (09:53)
[2017-07-27] MEDS: Pantoprazole 40 mg EC Tab PO SCH (09:54)
--- NOTE | 2017-07-27 13:33 | CP.PCM.PN ---
Subjective - Date & Time of Evaluation Date of Evaluation: 07/27/17 Time of Evaluation: 11:00 - Subjective Subjective: Patient seen and examined. Continue to have chest discomfort described as pressure in the chest. Ddimer was elevated. Objective - Vital Signs/Intake and Output Vital Signs (last 24 hours): Temp Pulse Resp BP Pulse Ox 98.2 F 70 16 118/73 95 07/27/17 12:16 07/27/17 12:16 07/27/17 12:16 07/27/17 12:16 07/27/17 12:16 - Medications Medications: Current Medications Aspirin (Ecotrin) 325 mg PO DAILY [facility] Last Admin: 07/27/17 09:53 Dose: 325 mg Diphenhydramine HCl (Benadryl) 25 mg PO Q6 PRN PRN Reason: Itching / Pruritus Docusate Sodium (Colace) 100 mg PO BID PRN PRN Reason: Constipation Enoxaparin Sodium (Lovenox) 40 mg SC DAILY [facility] PRN Reason: Protocol Last Admin: 07/27/17 09:53 Dose: 40 mg Furosemide (Lasix) 40 mg PO DAILY [facility] Last Admin: 07/27/17 09:54 Dose: 40 mg Lactic Acid (Lac-Hydrin 12% Lotion (225 G)) 1 applic TOP TID [facility] Levalbuterol HCl (Xopenex) 0.63 mg INH Q6H PRN PRN Reason: Shortness of Breath Losartan Potassium (Cozaar) 25 mg PO DAILY [facility] Last Admin: 07/27/17 09:53 Dose: 25 mg Pantoprazole Sodium (Protonix Ec Tab) 40 mg PO DAILY [facility] Last Admin: 07/27/17 09:54 Dose: 40 mg Timolol Maleate (Timoptic 0.5% Ophth Soln) 1 drop OU QAM [facility] Last Admin: 07/27/17 09:54 Dose: 1 drop - Labs Labs: 07/27/17 06:04 07/27/17 06:04 PT 12.0 Seconds (9.8-13.1) 07/26/17 13:50 INR 1.1 (0.9-1.2) 07/26/17 13:50 APTT 28.4 Seconds (25.6-37.1) 07/26/17 13:50 - Constitutional Appears: No Acute Distress - Head Exam Head Exam: ATRAUMATIC - Eye Exam Eye Exam: absent: Scleral icterus - ENT Exam ENT Exam: Mucous Membranes Moist - Neck Exam Neck Exam: absent: Meningismus - Respiratory Exam Respiratory Exam: absent: Rales, Rhonchi, Wheezes, Respiratory Distress - Cardiovascular Exam Cardiovascular Exam: REGULAR RHYTHM, +S1, +S2 - GI/Abdominal Exam GI & Abdominal Exam: Soft. absent: Tenderness - Rectal Exam Rectal Exam: Deferred - Extremities Exam Extremities Exam: absent: Calf Tenderness, Pedal Edema - Back Exam Back Exam: absent: tenderness - Neurological Exam Neurological Exam: Alert, Oriented x3 - Psychiatric Exam Psychiatric exam: Normal Affect - Skin Skin Exam: Dry, Intact Assessment and Plan - Assessment and Plan (Free Text) Assessment: 87 yo female with history of HTN, DVTs of the left leg (4x) and CVA (2X) came in because of SOB associated with coughing and tightness of the chest since 10 days ago. Patient had just came out of a rehab facility 10 days ago and has been bed bound since because of weakness. She was seen at an urgent care and was given Z-ema but did not improved even after consuming the whole ema. Denied chest pain but admitted chest pressure. She claimed improvement after receiving 3 doses of Duoneb. 1. COPD denied SOB or wheezing but continued to have chest pressure serum Ddimer elevated awaiting VQ scan to rule out PE 2. HTN BP stable on Losartan 25mg PO daily 3. Itchiness Lac Hydrin apply on skin TID Claritin 10mg PO daily 4. DVT prophylaxis Lovenox 40mg SC daily
[2017-07-27] MEDS: guaiFENesin DM 200 mg-20 mg/10 ml UD PO PRN (17:02)
[2017-07-28] MEDS: Enoxaparin 40 mg Syringe SC SCH (09:06)
[2017-07-28] MEDS: Pantoprazole 40 mg EC Tab PO SCH (09:06)
[2017-07-28] MEDS: Aspirin 325 mg EC Tablets PO SCH (09:07)
[2017-07-28] MEDS: guaiFENesin DM 200 mg-20 mg/10 ml UD PO PRN (09:09)
--- NOTE | 2017-07-28 13:37 | CARD ---
APPROVED REPORT EKG Measurement Heart [id number] <Conclusion> Normal sinus rhythm Normal ECG
[2017-07-28 15:50] VITALS: BP 111/89; PULSE 81; RESP 20; TEMP 97.8; O2SAT 96
--- NOTE | 2017-07-28 15:57 | NM ---
COMPARISON: 07/26/2017 two-view chest. 07/26/2017 lower extremity duplex venous sonography. TECHNIQUE: 36.7 mCi technetium 99-m DTPA aerosol. 4.86 mCI technetium 99-m MAA administered intravenously. FINDINGS: VENTILATION COMPONENT: Markedly heterogeneous ventilation. Retention of radionuclide in the tracheobronchial tree and ingestion of radionuclide in the stomach, incidental findings PERFUSION COMPONENT: Heterogeneous distribution of radionuclide. No geographic, segmental, lobar abnormalities apparent on the present examination. IMPRESSION: Low probability ventilation perfusion scan for pulmonary embolism.
--- NOTE | 2017-07-28 18:09 | CP.PCM.DIS ---
Provider - Provider Date of Admission: 07/27/17 13:29 Attending physician: Jamie Riojas MD Primary care physician: PMD: Samuel Vargas MD Time Spent in preparation of Discharge (in minutes): 25 Hospital Course - Lab Results Lab Results: Micro Results 07/26/17 13:50 Throat Group A Strep Throat Culture - Final NORMAL SAPROPHYTIC CARA. CULTURE NEGATIVE FOR BETA STREP GROUP A. Most Recent Lab Values WBC 6.3 K/uL (4.8-10.8) 07/27/17 06:04 RBC 4.14 Mil/uL (3.80-5.20) 07/27/17 06:04 Hgb 12.4 g/dL (12.0-16.0) 07/27/17 06:04 Hct 36.8 % (34.0-47.0) 07/27/17 06:04 MCV 88.9 fl (81.0-99.0) 07/27/17 06:04 MCH 29.9 pg (27.0-31.0) 07/27/17 06:04 MCHC 33.7 g/dL (33.0-37.0) 07/27/17 06:04 RDW 13.7 % (11.5-14.5) 07/27/17 06:04 Plt Count 303 K/uL (130-400) 07/27/17 06:04 MPV 9.1 fl (7.2-11.7) 07/27/17 06:04 Neut % (Auto) 80.3 % (50.0-75.0) H 07/27/17 06:04 Lymph % (Auto) 12.8 % (20.0-40.0) L 07/27/17 06:04 [place] % (Auto) 6.5 % (0.0-10.0) 07/27/17 06:04 Eos % (Auto) 0.0 % (0.0-4.0) 07/27/17 06:04 Baso % (Auto) 0.4 % (0.0-2.0) 07/27/17 06:04 Neut # (Auto) 5.0 K/uL (1.8-7.0) 07/27/17 06:04 Lymph # (Auto) 0.8 K/uL (1.0-4.3) L 07/27/17 06:04 [place] # (Auto) 0.4 K/uL (0.0-0.8) 07/27/17 06:04 Eos # (Auto) 0.0 K/uL (0.0-0.7) 07/27/17 06:04 Baso # (Auto) 0.0 K/uL (0.0-0.2) 07/27/17 06:04 PT 12.0 Seconds (9.8-13.1) 07/26/17 13:50 INR 1.1 (0.9-1.2) 07/26/17 13:50 APTT 28.4 Seconds (25.6-37.1) 07/26/17 13:50 D-Dimer, Quantitative 409 ng/mlDDU (0-230) H 07/26/17 21:56 pO2 25 mm/Hg (30-55) L 07/26/17 13:39 VBG pH 7.38 (7.32-7.43) 07/26/17 13:39 VBG pCO2 54 mmHg (40-60) 07/26/17 13:39 VBG HCO3 27.7 mmol/L 07/26/17 13:39 VBG Total CO2 33.6 mmol/L (22-28) H 07/26/17 13:39 VBG O2 Sat (Calc) 51.3 % (40-65) 07/26/17 13:39 VBG Base Excess 5.3 mmol/L (0.0-2.0) H 07/26/17 13:39 VBG Potassium 3.9 mmol/L (3.6-5.2) 07/26/17 13:39 Sodium 137.0 mmol/L (132-148) 07/26/17 13:39 Chloride 106.0 mmol/L (98-107) 07/26/17 13:39 Glucose 102 mg/dL (65-105) 07/26/17 13:39 Lactate 1.4 mmol/L (0.7-2.1) 07/26/17 13:39 FiO2 21.0 % 07/26/17 13:39 Sodium 141 mmol/l (132-148) 07/27/17 06:04 Potassium 3.6 MMOL/L (3.6-5.0) 07/27/17 06:04 Chloride 104 mmol/L (98-107) 07/27/17 06:04 Carbon Dioxide 25 mmol/L (22-30) 07/27/17 06:04 Anion Gap 16 (10-20) 07/27/17 06:04 BUN 15 mg/dl (7-17) 07/27/17 06:04 Creatinine 0.6 mg/dl (0.7-1.2) L 07/27/17 06:04 Est GFR ( Amer) > 60 07/27/17 06:04 Est GFR (Non-Af Amer) > 60 07/27/17 06:04 Random Glucose 116 mg/dL (65-105) H 07/27/17 06:04 Calcium 10.2 mg/dL (8.4-10.2) 07/27/17 06:04 Phosphorus 3.3 mg/dl (2.5-4.5) 07/26/17 13:50 Magnesium 2.0 MG/DL (1.6-2.3) 07/26/17 13:50 Total Bilirubin 0.5 mg/dl (0.2-1.3) 07/26/17 13:50 AST 21 U/L (14-36) 07/26/17 13:50 ALT 26 U/L (9-52) 07/26/17 13:50 Alkaline Phosphatase 51 U/L (38-126) 07/26/17 13:50 Troponin I 0.0750 ng/mL (0.00-0.120) 07/27/17 14:30 NT-Pro-B Natriuret Pep 271 pg/ml (0-900) 07/26/17 13:50 Total Protein 7.1 G/DL (6.3-8.2) 07/26/17 13:50 Albumin 3.7 g/dL (3.5-5.0) 07/26/17 13:50 Globulin 3.4 gm/dL (2.2-3.9) 07/26/17 13:50 Albumin/Globulin Ratio 1.1 (1.0-2.1) 07/26/17 13:50 Lipase 302 U/L (23-300) H 07/26/17 13:50 TSH 3rd Generation 0.76 mIU/ML (0.46-4.68) 07/26/17 13:50 Venous Blood Potassium 3.9 mmol/L (3.6-5.2) 07/26/17 13:39 Urine Color Yellow (YELLOW) 07/26/17 16: Urine Clarity Slighty-cloudy (Clear) 07/26/17 16:29 Urine pH 5.0 (5.0-8.0) 07/26/17 16:29 Ur Specific Thermal 1.027 (1.003-1.030) 07/26/17 16:29 Urine Protein 30 mg/dL (NEGATIVE) 07/26/17 16:29 Urine Glucose (UA) Neg mg/dL (Normal) 07/26/17 16: Urine Ketones Trace mg/dL (NEGATIVE) 07/26/17 16: Urine Blood Negative (NEGATIVE) 07/26/17 16: Urine Nitrate Negative (NEGATIVE) 07/26/17 16: Urine Bilirubin Negative (NEGATIVE) 07/26/17 16:29 Urine Urobilinogen 0.2-1.0 mg/dL (0.2-1.0) 07/26/17 16:29 Ur Leukocyte Esterase Trace Nain/uL (Negative) 07/26/17 16:29 Urine RBC (Auto) 3 /hpf (0-3) 07/26/17 16:29 Urine Microscopic WBC 10 /hpf (0-5) H 07/26/17 16:29 Ur Squamous Epith Cells 2 /hpf (0-5) 07/26/17 16:29 Urine Bacteria Rare (<OCC) 07/26/17 16:29 Influenza Typ A,B (EIA) Negative for flu a/b (NEGATIVE) 07/26/17 13:50 Grp A Beta Strep Ag Negative (NEGATIVE) 07/26/17 13:50 - Hospital Course Hospital Course: 87 yo female with history of HTN, DVTs of the left leg (4x) and CVA (2X) came in because of SOB associated with coughing and tightness of the chest since 10 days prior to admission. Patient had just came out of a rehab facility 10 days beforehand and has been bed bound and weak since then. She was seen at an urgent care and was prescribed Z-ema but did not improve even after taking the pack as directed. Denied chest pain, fever, chills, nausea or vomiting. She claimed improvement after receiving 3 doses of Duoneb via nebulizer. the patient was seen to have worsening dyspnea and wheezing in the ED and there was concern for URI with asthma exacerbation. She was started on Xopenex, Claritin , and Lasix with improvement in her symptoms over the course of her stay. She also had chest tightness beginning in the ED. ACS was ruled out with serial troponins and EKG is nonischemic. Due to continuing pain there was concern for PE as well; D dimer was positive, however VQ scan done today is low probability for PE. Therefore she is being discharged home today in stable condition and should follow up with Dr. Vargas in one week. Take medications as prescribed. Final diagnosis 1) Asthma exacerbation 2) Acute bronchitis with bronchospasm 3) Chest tightness due to Asthma exacerbation, no evidence of ACS 4) Essential hypertension 5) DVT prophylaxis encounter Discharge Exam - Additional Findings Additional findings: Physical exam: Constitutional- cooperative, awake, alert Head- NCAT, PERRL Eye- PERRL, EOMI ENT- normal exam, MMM. Neck- normal inspection, supple, no JVD Respiratory- CTAB, no wheezes rales rhonchi Cardiovascular- RRR, +S1, +S2 no MRG GI/Abdominal- normal bowel sounds, soft, no mass, no hsm Skin- warm, dry Extremities Exam- normal capillary refill, normal inspection Neurological Exam- alert, awake, oriented Psych- normal mood, normal affect Discharge Plan - Discharge Medications Prescriptions: Ammonium Lactate 12% [Lac-Hydrin 12% Lotion (225 g)] 1 applic TOP TID #1 bottle Benzocaine/Menthol [Cepacol Sore Throat Lozenge] 1 each MM Q6H PRN #20 lozenge PRN Reason: Sore Throat Docusate [Colace] 100 mg PO BID PRN #30 cap PRN Reason: Constipation Loratadine [Claritin] 10 mg PO DAILY #30 tab - Follow Up Plan Condition: STABLE Disposition: HOME/ ROUTINE Instructions: Chest Pain (DC), Exacerbation of COPD, Weakness (ED) Additional Instructions: follow up in 1 week Referrals: Samuel Vargas MD [Family Provider] -
== END 2017-07-28 19:25 | disposition home or self-care (01) ==
LOC: H.ER 12:54 → H.ERHOLD 15:46 → H.TEL 07-27 00:26 → INTOOBSV 07-27 13:29 → OBSVTOIN 07-27 13:29
DX: J45.901 Unspecified asthma with (acute) exacerbation (principal); E11.9 Type 2 diabetes mellitus without complications; E20.9 Hypoparathyroidism, unspecified; I10 Essential (primary) hypertension; J20.9 Acute bronchitis, unspecified; J44.0 Chronic obstructive pulmonary disease with (acute) lower respiratory infection; Z79.82 Long term (current) use of aspirin; Z79.899 Other long term (current) drug therapy; Z82.3 Family history of stroke; Z86.718 Personal history of other venous thrombosis and embolism; Z86.73 Personal history of transient ischemic attack (TIA), and cerebral infarction without residual deficits; Z87.891 Personal history of nicotine dependence; Z96.641 Presence of right artificial hip joint; D51.9 Vitamin B12 deficiency anemia, unspecified; F41.9 Anxiety disorder, unspecified; M19.90 Unspecified osteoarthritis, unspecified site; R56.9 Unspecified convulsions; Z74.01 Bed confinement status
CPT/HCPCS: 36415; 71046; 78582; 80048; 80053; 81003; 82803; 83690; 83735; 83880; 84100; 84443; 84484; 85025; 85378; 85610; 85730; 87070; 87430; 87804; 93005; 93970; 94640; 96365; 96367; 99285; A9524; A9567; G0378; J0456; J0696; J1650